=== PATIENT | female | born 1955 | race Caucasian/White ===

== ENCOUNTER 2020-08-05 13:24 | Inpatient (IN) | payer MEDICARE, OTHER, SELFPAY ==
[2020-08-05] VITALS (9 sets, daily range): BP systolic 107–140; BP diastolic 56–73; PULSE 104–120; RESP 16–18; TEMP 36.7–39; O2SAT 96–99; BMI 21.2
--- NOTE | 2020-08-05 13:58 | EKG12_ITS ---
Test Reason : Blood Pressure : / mmHG Vent. Rate : 112 BPM Atrial Rate : 112 BPM P-R Int : 134 ms QRS Dur : 064 ms QT Int : 288 ms P-R-T Axes : 044 004 063 degrees QTc Int : 393 ms Sinus tachycardia Otherwise normal ECG Confirmed by EVERTON GONZALES, PETAR ([id number]), magazine editor KELTON CUELLAR ([id number]) on 08/11/2020 8:48:05 A M Referred By: JAMILA Confirmed By:AMIE TOSCANO MD
--- NOTE | 2020-08-05 14:25 | RAD_ITS ---
STUDY: X-RAY CHEST REASON FOR EXAM: Female, 65 years old. NEUTROPENIC FEVER AND COUGH, BREAST CA W/METS TO LUNGS, BONE AND LYMPHATIC, HX HTN TECHNIQUE: PA and lateral views of the chest. COMPARISON: None. FINDINGS: A right-sided portacatheter is seen with the tip at the junction of the superior vena cava and right atrium. Elevation of the left hemidiaphragm. Blunting of the left costophrenic angle. Minimal increased markings at the lung bases suggestive of scarring. Normal size heart. Normal mediastinum and camilla. Normal visualized pulmonary arteries. There is atherosclerotic calcification of the aortic arch with tortuosity. There are degenerative changes and osteopenia of the visualized thoracic spine. Normal visualized ribs, clavicles, and shoulders. There is no demonstrated abnormality of the visualized soft tissue structures of the upper abdomen. RAD/Chest PA and Lateral IMPRESSION: Elevation of the left hemidiaphragm. Mild increased markings at the lung bases suggestive of a mild scarring. Electronically Signed: Uche Villasenor, at 14:51 EDT , Service support ,
--- NOTE | 2020-08-05 14:48 | ED.DCSUM_ITS ---
History of Present Illness Chief Complaint: Fever Informant: Patient, Family Onset: Days Context: Sudden Onset Timing: Continuous Quality: Malaise, elevated temperature starting Tuesday Location: Generalized Current Severity: Mild Maximum Severity: Moderate Worsened by: Received chemotherapy on July 31 Relieved by: Nothing Associated Symptoms: Chronic cough for several months, sores in mouth Narrative: Patient is 65-year-old woman with metastatic breast cancer. Metastasis to lung, bone and lymphatics. She has triple positive receptors. She received her first chemotherapy on July 31. She states her temperature on Tuesday vary between 100.1 and 100.3. Prior to arrival she had a document temperature of 101.7. She contacted her oncologist Dr. Germán Mary who recommended she come to the emergency department. She does complain of mild frontal head discomfort. She denies photophobia, neck pain or neck stiffness. She denies ringing or ears, decreased hearing or drainage from her ears. She denies congestion or sore throat. She does report discomfort with swallowing that started a couple days ago and sores near her gums. She has no history of herpes simplex virus infection. She states the cough is unchanged and nonproductive. She denies chest discomfort. She denies nausea, vomiting or diarrhea. She denies dysuria, frequency, urgency or hematuria. She has not noted a rash. She complains of weakness and not feeling well. Patient states her port was placed July [address] Beryl Bravo. She was diagnosed with breast cancer on 21 July. Prior similar symptoms: No Recent Illness/Hospitalization: Yes - Past Medical History (1) Metastatic breast cancer Status: Acute Past Medical History - Allergies and Home Meds Allergies/Adverse Reactions: Allergies No Known Allergies Allergy (Verified 08/05/20 13:26) Primary Care Physician: Nasreen Sierra,Out of [NON-STAFF] - Prior records reviewed: No Surgical History: - - Med port right subclavian Lives: With Family Smoking Status: Never smoker Alcohol: None Drugs: None Review of Systems General: Reports: Fever, Malaise, Weight loss. Denies: Chills, Subjective, Sweats Eyes: Denies: Visual changes - bilaterally, Blurred Vision - bilaterally ENT: Reports: Sore throat. Denies: Bilateral ear pain, Rhinorrhea Cardiovascular: Denies: Chest pain, Palpitations Respiratory: Reports: Dyspnea, Cough. Denies: Sputum, Dyspnea on exertion, Orthopnea, Paroxysmal nocturnal dyspnea Gastrointestinal: Denies: Abdominal pain, Nausea, Vomiting, Diarrhea Genitourinary: Denies: Dysuria, Hematuria, Frequency Musculoskeletal: Denies: Myalgias, Arthralgias, Neck pain, Back pain, Swelling, Extremity Pain Skin: Reports: Wounds - Oral lesions. Denies: Rash Neurological: Reports: Headache, Weakness. Denies: Parasthesia, Numbness Endocrine: Denies: Polyuria, Polydipsia Hematologic: Denies: Easy bruising Physical Exam Vital Signs/Narrative: Vital Signs Temp Pulse Resp BP Pulse Ox 08/05/20 13:24 100.1 F H 120 H 16 140/70 H 99 Inital Vital Signs reviewed: Yes General: Well nourished, Well developed, No Acute Distress Head: Normocephalic, Atraumatic Eyes: Perrl, EOMI, Pale conjunctiva. Negative for: Scleral icterus ENT: No rhinorrhea, TM's clear, Dry mucous membranes, - - Patient has ulcerative lesions roof of the mouth and buccal surface of her cheeks. Probably Neck: Supple, Nontender, No lymphadenopathy, No JVD Cardiovascular: Regular rhythm, No murmurs, Normal S1, Normal S2, Tachycardia Respiratory: No distress, CTA bilaterally, Chest nontender Abdomen: Soft, Nontender, Nondistended, Normal bowel sounds Rectal: Deferred Back: Nontender, Normal Inspection Extremities: Nontender, No edema Skin: Normal color, No rash, No Trauma. Negative for: Cyanosis, Diaphoresis, Jaundice Neurological: Alert, Oriented x3, Cranial nerves II-XII grossly intact, Normal Strength, Normal Sensation Psychological: Normal affect Diagnostic/Tx/Re-eval Chest X-Ray - ED: 2 View, Read by ED Physician, Normal, Heart, Chronic Changes, - - Is elevation left hemidiaphragm. Port noted on the right side. There is hilar fullness. We will need to review prior x-rays. 08/05/20 14:25 Chest PA and Lateral [RAD] Stat Impressions Chest X-Ray 08/05/20 14:25 IMPRESSION: Elevation of the left hemidiaphragm. Mild increased markings at the lung bases suggestive of a mild scarring. Electronically Signed: Uche Villasenor, at 14:51 EDT , Service support , 08/05/20 14:25 Chest PA and Lateral [RAD] Stat Laboratory Results 08/05/20 08/05/20 08/05/20 14:50 14:50 14:50 WBC 0.4 L* RBC 5.05 Hgb 13.6 Hct 42.2 MCV 83.6 MCH 26.9 L MCHC 32.2 RDW Std Deviation 42.5 RDW Coeff of Jose 14.0 Plt Count 129 L MPV 9.7 Immature Gran % (Auto) 2.900 H Neut % (Auto) 25.6 L Lymph % (Auto) 48.6 H [place] % (Auto) 20.0 H Eos % (Auto) 2.9 Baso % (Auto) 0.0 Absolute Neuts (auto) 0.1 L Absolute Lymphs (auto) 0.17 L Nucleated RBC % 0 Differential Comment SEE COMMENTS Diff Path Review May foll Platelet Estimate SLT DEC RBC Morphology N CHROM Anisocytosis RARE PT 12.6 INR 1.0 APTT 27.4 Sodium 134 L Potassium 4.0 Chloride 102 Carbon Dioxide 28.0 Anion Gap 4 L BUN 13 Creatinine 0.86 Estim Creat Clear Calc 63.53 Est GFR (MDRD) Af Amer 85 Est GFR (MDRD) Non-Af 70 BUN/Creatinine Ratio 15.1 Glucose 125 H Lactic Acid Calcium 8.9 Total Bilirubin 0.60 AST 23 ALT 42 Alkaline Phosphatase 114 Total Protein 6.3 L Albumin 2.7 L Globulin 3.6 Albumin/Globulin Ratio 0.8 L 08/05/20 14:50 WBC RBC Hgb Hct MCV MCH MCHC RDW Std Deviation RDW Coeff of Jose Plt Count MPV Immature Gran % (Auto) Neut % (Auto) Lymph % (Auto) [place] % (Auto) Eos % (Auto) Baso % (Auto) Absolute Neuts (auto) Absolute Lymphs (auto) Nucleated RBC % Differential Comment Diff Path Review Platelet Estimate RBC Morphology Anisocytosis PT INR APTT Sodium Potassium Chloride Carbon Dioxide Anion Gap BUN Creatinine Estim Creat Clear Calc Est GFR (MDRD) Af Amer Est GFR (MDRD) Non-Af BUN/Creatinine Ratio Glucose Lactic Acid 1.1 Calcium Total Bilirubin AST ALT Alkaline Phosphatase Total Protein Albumin Globulin Albumin/Globulin Ratio Case was discussed with Dr. Germán Mary. He requested admission. He was informed of treatment. He would like the hospitalist to give her Granix 480 mcg subcu daily. - EKG Initial EKG Interpretation: Sinus Rhythm - Sinus tachycardia with a ventricular rate of 112. VT interval 134 ms. QRS duration 64 ms. QT duration 288 ms. [place] is normal. Other than the tachycardia the EKG is normal. - Medical Decision Making Concern for neutropenic febrile patient. Neutropenic order set was initiated. After physical exam was performed since patient had orders placed and she was waiting in the waiting room HSV viral specimen was obtained. She will receive 10 mg/kg acyclovir as well as prophylactic antibiotics. After test results have returned we will discuss case with her oncologist Dr. Germán Mary. ED Disposition - Plan for ED Patient: Disposition: Home or Assisted Living Diagnosis: Neutropenia with fever Referrals: [facility] Doctor,Out of [NON-STAFF] -
[2020-08-05 15:19] LABS: Absolute Lymphocyte Count 0.17 X10^3/uL (0.83-4.51); Absolute Neutrophil Count 0.1 X10^3/uL (2.0-7.7); Eosinophil# 0.01 X10^3/uL; Eosinophils% 2.9 % (0-5); Hematocrit 42.2 % (37-47); Hemoglobin 13.6 g/dL (12.0-15.0); Lymphocyte # 0.17 X10^3/ul (4.0); Lymphocyte % 48.6 % (19-41); Mean Corp Hgb Conc 32.2 g/dL (32-36); Mean Corpuscular Hgb 26.9 pg (27.0-32.0); Mean Corpuscular Volume 83.6 fL (81-99); Mean Platelet Vol. 9.7 fl (6.2-12.0); Monocyte# 0.07 X10^3/uL; NRBC Flagged by Analyzer 0 % (0-5); Neutrophil # 0.09 X10^3/uL (2.7-7.7); Neutrophil % 25.6 % (47-70); POSITIVE COUNT YES; POSITIVE DIFFERENTIAL YES; Platelet Count 129 K/mm3 (150-450); RBC Distribution Width SD 42.5 fl (35.1-43.9); Red Blood Count 5.05 M/mm3 (4.2-5.4)
[2020-08-05] MEDS: 0.9% Normal Saline 1,000 ML 250 ML IV (15:22)
[2020-08-05] MEDS: 0.9 % NaCl (Sterile) Posiflush 10 mL IV (15:23)
[2020-08-05] MEDS: Acetaminophen 325 MG Tablet 650 MG PO (15:24)
[2020-08-05 15:32] LABS: ALB/GLOB Ratio 0.8 RATIO (0.9-2.4); AST(SGOT) 23 U/L (15-37); Alanine Aminotransfer ALT/SGPT 42 U/L (13-56); Albumin, Serum 2.7 g/dL (3.2-5.0); Alkaline Phosphatase 114 U/L (45-117); Anion Gap 4 (5-15); BUN 13 mg/dL (7-18); BUN/Creat Ratio 15.1 RATIO (10-20); Calcium,Total 8.9 mg/dL (8.5-10.1); Chloride 102 mmol/L (98-107); Creatinine, Serum 0.86 mg/dL (0.55-1.02); EST Glomerular Filtration Rate 70 mL/min (>60); Est Glom Filt Rate - Afr Amer 85 mL/min (>60); Estimated Creatinine Clearance 63.53 ml/min; Globulin 3.6 g/dL (2.2-4.2); Glucose 125 mg/dL (74-106); Protein, Total 6.3 g/dL (6.4-8.2); Sodium Level 134 mmol/L (136-145)
[2020-08-05 15:37] LABS: Prothrombin Time (Protime)PT. 12.6 SECONDS (11.7-14.9)
[2020-08-05 15:38] LABS: Partial Thromboplast Time 27.4 Seconds (24.1-36.2)
[2020-08-05 15:42] LABS: Lactic Acid 1.1 mmol/L (0.4-1.9)
[2020-08-05 16:08] LABS: Differential Indicated SCAN CRITERIA MET; White Blood Count 0.4 K/mm3 (4.4-11.0)
[2020-08-05 16:12] LABS: Anisocytosis RARE; Differential Comment SEE COMMENTS; Platelet Estimate SLT DEC (ADEQ); Red Cell Morphology N CHROM NORMAL (NORM C&C)
--- NOTE | 2020-08-05 16:13 | NURSING ---
DR LEIGH PAGED
[2020-08-05] MEDS: Acyclovir 640 MG in Dextrose 5% 250 ML 262.8 MG IV (16:32)
[2020-08-05 16:55] LABS: Mucous, Urine 0 SEEN /hpf (<or=2+); Red Blood Cells-Urine 0 SEEN /hpf (0-5)
--- NOTE | 2020-08-05 16:59 | NURSING ---
MED SURG HARVEY NEUTROPENIC FEVER, METASTATIC BREAST CA
--- NOTE | 2020-08-05 17:05 | PCM.HP.STD ---
<Celine Joe PROCESSES CHEMICAL DESIGN ENGINEER - Last Filed: 08/05/20 17:19> Problem List (1) Metastatic breast cancer Status: Chronic (2) Neutropenia with fever Status: Acute (3) Hypertension Status: Chronic History of Present Illness Date of Admission: 08/05/20 Chief Complaint: Fever. The patient is a 65 year old F who presents to the emergency room due to fever. Patient was recently diagnosed with breast cancer July 21. She underwent her first chemotherapy treatment July 31. Patient states she has tolerated treatment fairly well. However yesterday began to have low-grade fever which worsened throughout today. She reports she has had ongoing intermittent mild cough since her diagnosis. Denies productive cough. Denies shortness of breath. Denies urinary symptoms. Denies nausea, vomiting, diarrhea, abdominal pain. She does report mouth sores and throat irritation. Her other past medical history includes hypertension. Past Medical History Past Medical History (Chronic Problems): Chronic Problems Hypertension (Chronic) Metastatic breast cancer (Chronic) Allergies No Known Allergies Allergy (Verified 08/05/20 13:26) Home Medications: Ambulatory Orders Medication Instructions Recorded Amlodipine [Norvasc] 10 mg PO DAILY 08/05/20 Ergocalciferol (Vitamin D2) 50,000 unit PO TUFR 08/05/20 [Vitamin D2] Surgical History: - - Med port right subclavian Psychiatric History: No pertinent psych hx THREAD CLIPPER History: No pertinent THREAD CLIPPER history Lives: With Family - With sister Smoking Status: Never smoker Alcohol: None Drugs: None - *Family History Maternal History Items: Dementia, Stroke Paternal History Items: Heart Disease Review of Systems Constitutional: Reports: Chills, Fever, Malaise HEENT: Reports: Sore Throat. Denies: Head Aches, Sinus Congestion, Sinus Drainage Cardiovascular: Denies: Chest Pain, Palpitations Respiratory: Reports: Cough - Chronic. Denies: Shortness of breath at rest, Sputum production Gastrointestinal: Denies: Abdominal Pain, Nausea, Vomiting Genitourinary: Denies: Dysuria Musculoskeletal: Denies: Joint Pain, Joint Tenderness Skin: Denies: Rash, Wounds Neurological: Denies: Numbness, Tingling, Focal weakness Psychiatric: Denies: Anxiety, Depression, Homicidal Ideations, Suicidal Ideations Hematologic/ Lymphatic: Denies: Easy Bruising, Easy Bleeding VTE Information - Inpt Only VTE Present on Admission: No VTE Mechan Device Prophylaxis: None VTE Pharm Prophylaxis ordered?: Yes Patient Problems: Active and Suspected Problems Neutropenia with fever (Acute) - Physical Exam Vitals/I&O's: Vital Signs Temp Pulse Resp BP Pulse Ox 98.1 F 108 H 18 121/73 H 99 08/05/20 16:51 08/05/20 16:51 08/05/20 16:51 08/05/20 16:51 08/05/20 16:51 Oxygen Delivery Method Room Air Weight: 139 lb 12.369 oz Body Mass Index (BMI) 21.2 Intake and Output for Last 24 Hours 08/03/20 08/04/20 08/05/20 23:59 23:59 23:59 Intake Total 50 / 50 Balance 50 / 50 General: Alert, Oriented x3, Cooperative HEENT: Atraumatic, PERRLA, EOMI, Normocephalic Oral: - - Mild thrush present, ulcerative lesions Neck: Supple, No JVD, Negative Carotid Bruits Lungs: Clear to auscultation, Normal air movement Cardiovascular: Regular Rhythm, No murmurs, Tachycardic Abdomen: Bowel Sounds Present, Soft, Non Tender, Non-Distended Extremities: No clubbing, No cyanosis, No edema, Capillary Refill Less than 3 Seconds Skin: No rashes, No breakdown Musculoskeletal: No Tenderness to Palpation of Joints or Extremities Neurological: Cranial nerves II-XII grossly intact, Neuro grossly intact Psych/Mental Status: Normal Affect, Appropriate Laboratory Results 08/05/20 14:30: HSV I DNA PCR Pending, HSV II DNA PCR Pending 08/05/20 14:50: WBC 0.4 L*, RBC 5.05, Hgb 13.6, Hct 42.2, MCV 83.6, MCH 26.9 L, MCHC 32.2, RDW Std Deviation 42.5, RDW Coeff of Jose 14.0, Plt Count 129 L, MPV 9.7, Immature Gran % (Auto) 2.900 H, Neut % (Auto) 25.6 L, Lymph % (Auto) 48.6 H, [place] % (Auto) 20.0 H, Eos % (Auto) 2.9, Baso % (Auto) 0.0, Absolute Neuts (auto) 0.1 L, Absolute Lymphs (auto) 0.17 L, Nucleated RBC % 0, Differential Comment SEE COMMENTS, Diff Path Review May foll, Platelet Estimate SLT DEC, RBC Morphology N CHROM, Anisocytosis RARE 08/05/20 14:50: PT 12.6, INR 1.0, APTT 27.4 08/05/20 14:50: Sodium 134 L, Potassium 4.0, Chloride 102, Carbon Dioxide 28.0, Anion Gap 4 L, BUN 13, Creatinine 0.86, Estim Creat Clear Calc 63.53, Est GFR (MDRD) Af Amer 85, Est GFR (MDRD) Non-Af 70, BUN/Creatinine Ratio 15.1, Glucose 125 H, Calcium 8.9, Total Bilirubin 0.60, AST 23, ALT 42, Alkaline Phosphatase 114, Total Protein 6.3 L, Albumin 2.7 L, Globulin 3.6, Albumin/Globulin Ratio 0.8 L 08/05/20 14:50: Lactic Acid 1.1 08/05/20 16:45: Urine Color Pending, Urine Clarity Pending, Urine pH Pending, Ur Specific [place] Pending, Urine Protein Pending, Urine Glucose (UA) Pending, Urine Ketones Pending, Urine Occult Blood Pending, Urine Nitrite Pending, Urine Bilirubin Pending, Urine Urobilinogen Pending, Ur Leukocyte Esterase Pending, Urine RBC Pending, Urine WBC Pending, Ur Squamous Epith Cells Pending, Urine Bacteria Pending, Urine Mucus Pending Current Medications Heparin Sodium (Beef Lung) (Heparin Pf Lock 10 Units/Ml 50 Units/5 Ml Syringe) 50 units IV UD PRN PRN Reason: Port-a-Cath (VAD)Heparin Flush Sodium Chloride () 1,000 mls @ 250 mls/hr IV .Q4H NATASHA Last Admin: 08/05/20 15:22 Dose: 250 mls/hr Documented by: Vancomycin HCl (Vancomycin) 1,000 mg in 200 mls @ 200 mls/hr IV X1 ONE Stop: 08/05/20 17:59 Sodium Chloride (0.9% Saline Lock 10 Ml Syringe) 10 - 40 ml IV UD PRN PRN Reason: Port-a-Cath (VAD) Flush Sodium Chloride (0.9 % Nacl (Sterile) Posiflush 10 Ml) 10 - 40 ml IV UD PRN PRN Reason: Port access or dressing change Last Admin: 08/05/20 15:23 Dose: 10 ml Documented by: Assessment/Plan All Active Problems Neutropenia with fever (Acute) 1. Sepsis with neutropenic fever-IV fluids. IV meropenem. Granix 300 mcg daily. As needed Tylenol. Urinalysis and urine culture pending. Blood culture pending. Chest x-ray unremarkable. 2. Oral thrush-nystatin swish and swallow. 3. Metastatic breast cancer-first chemo treatment 07/31/2020. Following with Dr. Mary. 4. Hypertension-stable, continue amlodipine. DVT prophylaxis-Lovenox subcu This patient was seen by JOSE Mays under the supervision of Dr. Beverly. <Howard Beverly E - Last Filed: 08/05/20 17:31> History of Present Illness The patient is a 65 year old F [] Past Medical History Allergies No Known Allergies Allergy (Verified 08/05/20 13:26) - Physical Exam Vitals/I&O's: Vital Signs Temp Pulse Resp BP Pulse Ox 98.1 F 108 H 18 121/73 H 99 08/05/20 16:51 08/05/20 16:51 08/05/20 16:51 08/05/20 16:51 08/05/20 16:51 Oxygen Delivery Method Room Air Weight: 139 lb 12.369 oz Body Mass Index (BMI) 21.2 Intake and Output for Last 24 Hours 08/03/20 08/04/20 08/05/20 23:59 23:59 23:59 Intake Total 50 / 50 Balance 50 / 50 Laboratory Results 08/05/20 14:30: HSV I DNA PCR Pending, HSV II DNA PCR Pending 08/05/20 14:50: WBC 0.4 L*, RBC 5.05, Hgb 13.6, Hct 42.2, MCV 83.6, MCH 26.9 L, MCHC 32.2, RDW Std Deviation 42.5, RDW Coeff of Jose 14.0, Plt Count 129 L, MPV 9.7, Immature Gran % (Auto) 2.900 H, Neut % (Auto) 25.6 L, Lymph % (Auto) 48.6 H, [place] % (Auto) 20.0 H, Eos % (Auto) 2.9, Baso % (Auto) 0.0, Absolute Neuts (auto) 0.1 L, Absolute Lymphs (auto) 0.17 L, Nucleated RBC % 0, Differential Comment SEE COMMENTS, Diff Path Review May foll, Platelet Estimate SLT DEC, RBC Morphology N CHROM, Anisocytosis RARE 08/05/20 14:50: PT 12.6, INR 1.0, APTT 27.4 08/05/20 14:50: Sodium 134 L, Potassium 4.0, Chloride 102, Carbon Dioxide 28.0, Anion Gap 4 L, BUN 13, Creatinine 0.86, Estim Creat Clear Calc 63.53, Est GFR (MDRD) Af Amer 85, Est GFR (MDRD) Non-Af 70, BUN/Creatinine Ratio 15.1, Glucose 125 H, Calcium 8.9, Total Bilirubin 0.60, AST 23, ALT 42, Alkaline Phosphatase 114, Total Protein 6.3 L, Albumin 2.7 L, Globulin 3.6, Albumin/Globulin Ratio 0.8 L 08/05/20 14:50: Lactic Acid 1.1 08/05/20 16:45: Urine Color Pending, Urine Clarity Pending, Urine pH Pending, Ur Specific [place] Pending, Urine Protein Pending, Urine Glucose (UA) Pending, Urine Ketones Pending, Urine Occult Blood Pending, Urine Nitrite Pending, Urine Bilirubin Pending, Urine Urobilinogen Pending, Ur Leukocyte Esterase Pending, Urine RBC Pending, Urine WBC Pending, Ur Squamous Epith Cells Pending, Urine Bacteria Pending, Urine Mucus Pending Current Medications Heparin Sodium (Beef Lung) (Heparin Pf Lock 10 Units/Ml 50 Units/5 Ml Syringe) 50 units IV UD PRN PRN Reason: Port-a-Cath (VAD)Heparin Flush Sodium Chloride () 1,000 mls @ 250 mls/hr IV .Q4H NATASHA Last Admin: 08/05/20 15:22 Dose: 250 mls/hr Documented by: Vancomycin HCl (Vancomycin) 1,000 mg in 200 mls @ 200 mls/hr IV X1 ONE Stop: 08/05/20 17:59 Sodium Chloride (0.9% Saline Lock 10 Ml Syringe) 10 - 40 ml IV UD PRN PRN Reason: Port-a-Cath (VAD) Flush Sodium Chloride (0.9 % Nacl (Sterile) Posiflush 10 Ml) 10 - 40 ml IV UD PRN PRN Reason: Port access or dressing change Last Admin: 08/05/20 15:23 Dose: 10 ml Documented by: Assessment/Plan Hospitalist note: I am seeing this patient in conjunction with Celine Joe. I independently seen and examined the patient. History and physical, laboratory data and imaging studies reviewed and I concur with above admission and treatment plan and additions as below. Patient presented to the emergency room because of fever which started yesterday, initially was low-grade fever and then went up to 101.7 Fahrenheit today, associated with not feeling well and mild weakness and without aggravating or relieving factors. Chief complaint of mouth sores and sore throat that started after chemotherapy. She received her first chemotherapy on July 31, 2012 24 metastatic breast cancer. She reported chronic dry cough which is usual for her. She denied productive cough, shortness of breath. She denied abdominal pain, nausea or vomiting. She denied urinary symptoms. She denied sick contacts or recent travel. She was diagnosed with metastatic breast cancer on July 21, 2020 and she received her first session of chemotherapy on July 31, 2020. She had history of hypertension which has been under control with Norvasc. In the emergency department, patient was febrile, tachycardic, blood pressure was stable, pulse ox was normal on room air. Routine blood work revealed leukopenia, thrombocytopenia and absolute neutrophil count of 100. BMP was unremarkable. Lactic acid was normal. Urinalysis showed no evidence of acute cystitis. She is being admitted for febrile neutropenia without clear source of infection as well as oral thrush. - Physical Exam General: Alert, Oriented x3, Cooperative, No apparent distress. HEENT: Atraumatic, PERRLA, EOMI. oral: Mild oral thrush. Neck: Supple, No JVD, Negative Carotid Bruits, Trachea Midline, Thyroid Normal. Lungs: Clear to auscultation, Normal air movement, No rhonchi, No wheeze, No rales. Cardiovascular: Regular rate, Regular Rhythm, Normal S1, Normal S2, PMI Normal, tachycardia. Abdomen: Bowel Sounds Present, Soft, Non Tender, Non-Distended, No Hepato-splenomegaly. Extremities: No clubbing, No cyanosis, No edema Skin: No rashes, No breakdown Neurological: Cranial nerves are intact, neuro grossly intact Assessment and plan: #1 febrile neutropenia/SIRS: Patient is febrile, tachycardic, no tachypnea, she is leukopenic and neutropenic, no obvious source of infection. She meets criteria for SIRS. Absolute neutrophil count is 100. It is secondary to chemotherapy. Chest x-ray showed no acute infiltrate or consolidation. Urinalysis was negative for UTI. [facility] gentle IV fluids for hydration, blood culture, urine culture, neutropenic precautions, start IV meropenem empirically, Granix subcu daily, repeat CBC and CMP tomorrow morning. No symptoms suggestive of COVID-19 and patient denied recent travel or sick contacts. #2 oral thrush: Secondary to chemotherapy, stopped nystatin oral swish and swallow 4 times a day. #3 other chronic medical problems: Stable, continue current medications as above. This note was generated with [facility] dictation software. It may contain incorrect words, spelling, and punctuation that were not noted in checking the note before signing. Inpatient E&M: 17149 Init Hosp L3
[2020-08-05] MEDS: Vancomycin IV 1,000 MG/200 ML BAG 200 MG IV (17:21)
[2020-08-05 17:22] LABS: Color, Urine Yellow (Yellow); Glucose, Dipstick Normal (Normal); Ketone-Dipstick Negative (Negative); Leukocyte Esterase-Dipstick 500 /ul (Negative); Nitrite-Dipstick Negative (Negative); Occult Blood-Urine Negative /ul (Negative); Protein-Dipstick Negative (Negative); Specific Gravity, Urine 1.015 (1.002-1.030); Urine Bilirubin Dipstick Negative (Negative); Urine Clarity Cloudy (Clear); Urine Urobilinogen Normal (Normal)
[2020-08-05] MEDS: TBO-FILGRASTIM 480 MCG/0.8 ML ML SC (17:22)
[2020-08-05 18:44] LABS: Squamous Epithelial Cells - UA 0-5 SEEN /hpf (5-10)
[2020-08-05 18:45] LABS: Transitional Epithelial - Ur 0-5 SEEN /hpf (0-5); White Blood Cells 0-5 SEEN /hpf (0-5)
[2020-08-05 18:46] LABS: Amorphous Sediment 1+
[2020-08-05 18:48] LABS: Bacteria RARE /hpf (None Seen)
[2020-08-05] MEDS: 0.9% Normal Saline 1,000 ML 75 ML IV (18:49)
[2020-08-05] MEDS: Pantoprazole Sodium 40 MG Tablet PO (18:49)
[2020-08-05] MEDS: NYSTATIN 500,000 UNIT/5 ML UDC 500000 UNIT PO ×2 (20:38→22:17)
[2020-08-06] VITALS (11 sets, daily range): BP systolic 110–122; BP diastolic 58–84; PULSE 102–112; RESP 16–18; TEMP 36.2–37.2; O2SAT 94–97
[2020-08-06 06:08] LABS: Absolute Lymphocyte Count 0.22 X10^3/uL (0.83-4.51); Basophil# 0.01 X10^3/uL; Basophil% 2.4 % (0-1); Eosinophil# 0.02 X10^3/uL; Eosinophils% 4.9 % (0-5); Hematocrit 36.9 % (37-47); Hemoglobin 11.7 g/dL (12.0-15.0); Lymphocyte # 0.22 X10^3/ul (4.0); Lymphocyte % 53.7 % (19-41); Mean Corp Hgb Conc 31.7 g/dL (32-36); Mean Corpuscular Hgb 26.6 pg (27.0-32.0); Mean Corpuscular Volume 83.9 fL (81-99); Mean Platelet Vol. 9.5 fl (6.2-12.0); Monocyte# 0.11 X10^3/uL; Monocyte% 26.8 % (0-10); NRBC Flagged by Analyzer 0 % (0-5); Neutrophil # 0.03 X10^3/uL (2.7-7.7); Neutrophil % 7.3 % (47-70); POSITIVE COUNT YES; POSITIVE DIFFERENTIAL YES; POSITIVE MORPHOLOGY YES; Platelet Count 111 K/mm3 (150-450); RBC Distribution Width SD 43.2 fl (35.1-43.9)
[2020-08-06 06:18] LABS: Differential Indicated SCAN CRITERIA MET
[2020-08-06 06:20] LABS: White Blood Count 0.4 K/mm3 (4.4-11.0)
[2020-08-06 06:27] LABS: Anion Gap 5 (5-15); BUN 13 mg/dL (7-18); BUN/Creat Ratio 16.7 RATIO (10-20); Chloride 105 mmol/L (98-107); Creatinine, Serum 0.78 mg/dL (0.55-1.02); EST Glomerular Filtration Rate 79 mL/min (>60); Est Glom Filt Rate - Afr Amer 95 mL/min (>60); Estimated Creatinine Clearance 54.57 ml/min; Glucose 94 mg/dL (74-106); Potassium 3.7 mmol/L (3.5-5.1); Sodium Level 136 mmol/L (136-145)
[2020-08-06 06:46] LABS: Differential Comment SCANNED
[2020-08-06 06:47] LABS: Platelet Estimate SLT DEC (ADEQ)
[2020-08-06] MEDS: TBO-FILGRASTIM 300 MCG/0.5 ML ML SC (10:17)
[2020-08-06] MEDS: NYSTATIN 500,000 UNIT/5 ML UDC 500000 UNIT PO ×4 (10:19→21:07)
[2020-08-06] MEDS: amLODIPine 10 MG Tablet PO (10:19)
[2020-08-06] MEDS: Enoxaparin 30 MG/0.3 ML Syringe SC (10:19)
[2020-08-06] MEDS: Pantoprazole Sodium 40 MG Tablet PO (10:21)
[2020-08-06] MEDS: 0.9% Normal Saline 1,000 ML 75 ML IV (10:37)
--- NOTE | 2020-08-06 10:44 | PN_ITS ---
<Celine Joe TEMPORARY HELP AGENCY REFERRAL CLERK - Last Filed: 08/06/20 10:56> Patient Problems: Active and Suspected Problems Neutropenia with fever (Acute) Subjective: Patient seen and examined. No further fever overnight or this morning. Patient reports itching and rash around her neck and chest. Reports continued mouth sores and sore throat. Denies nausea, vomiting. Denies cough, shortness of breath. Denies urinary symptoms. - Physical Exam Vitals/I&O's: Vital Signs Temp Pulse Resp BP Pulse Ox 98.3 F 102 H 18 119/58 L 96 08/06/20 10:13 08/06/20 10:13 08/06/20 10:13 08/06/20 10:13 08/06/20 10:13 Oxygen Delivery Method Room Air Weight: 139 lb 9.6 oz Body Mass Index (BMI) 21.2 Intake and Output for Last 24 Hours 08/04/20 08/05/20 08/06/20 23:59 23:59 23:59 Intake Total 1046.13 / 1046.13 880 / 880 Balance 1046.13 / 1046.13 880 / 880 General: Alert, Oriented x3, Cooperative HEENT: Atraumatic, PERRLA, EOMI, Normocephalic Oral: - - Oral thrush, ulcerative lesions Neck: Supple, No JVD, Negative Carotid Bruits Lungs: Clear to auscultation, Normal air movement Cardiovascular: Regular rate, No murmurs Abdomen: Bowel Sounds Present, Soft, Non Tender, Non-Distended Extremities: No clubbing, No cyanosis, No edema, Capillary Refill Less than 3 Seconds Skin: No rashes, No breakdown Musculoskeletal: No Tenderness to Palpation of Joints or Extremities Neurological: Cranial nerves II-XII grossly intact, Neuro grossly intact Psych/Mental Status: Normal Affect, Appropriate Laboratory Results 08/05/20 14:30: HSV I DNA PCR Pending, HSV II DNA PCR Pending 08/05/20 14:50: WBC 0.4 L*, RBC 5.05, Hgb 13.6, Hct 42.2, MCV 83.6, MCH 26.9 L, MCHC 32.2, RDW Std Deviation 42.5, RDW Coeff of Jose 14.0, Plt Count 129 L, MPV 9.7, Immature Gran % (Auto) 2.900 H, Neut % (Auto) 25.6 L, Lymph % (Auto) 48.6 H , Barron % (Auto) 20.0 H, Eos % (Auto) 2.9, Baso % (Auto) 0.0, Absolute Neuts (auto) 0.1 L, Absolute Lymphs (auto) 0.17 L, Nucleated RBC % 0, Differential Comment SEE COMMENTS, Diff Path Review May foll, Platelet Estimate SLT DEC, RBC Morphology N CHROM, Anisocytosis RARE 08/05/20 14:50: PT 12.6, INR 1.0, APTT 27.4 08/05/20 14:50: Sodium 134 L, Potassium 4.0, Chloride 102, Carbon Dioxide 28.0, Anion Gap 4 L, BUN 13, Creatinine 0.86, Estim Creat Clear Calc 63.53, Est GFR (MDRD) Af Amer 85, Est GFR (MDRD) Non-Af 70, BUN/Creatinine Ratio 15.1, Glucose 125 H, Calcium 8.9, Total Bilirubin 0.60, AST 23, ALT 42, Alkaline Phosphatase 114, Total Protein 6.3 L, Albumin 2.7 L, Globulin 3.6, Albumin/Globulin Ratio 0.8 L 08/05/20 14:50: Lactic Acid 1.1 08/05/20 16:45: Urine Color Yellow, Urine Clarity Cloudy, Urine pH 8.0, Ur Specific [place] 1.015, Urine Protein Negative, Urine Glucose (UA) Normal, Urine Ketones Negative, Urine Occult Blood Negative, Urine Nitrite Negative, Urine Bilirubin Negative, Urine Urobilinogen Normal, Ur Leukocyte Esterase 500 H, Urine RBC 0 SEEN, Urine WBC 0-5 SEEN, Ur Squamous Epith Cells 0-5 SEEN, Ur Transition Epith Cell 0-5 SEEN, Amorphous Sediment 1+, Urine Bacteria RARE, Urine Mucus 0 SEEN 08/06/20 05:53: WBC 0.4 L*, RBC 4.40, Hgb 11.7 L, Hct 36.9 L, MCV 83.9, MCH 26.6 L, MCHC 31.7 L, RDW Std Deviation 43.2, RDW Coeff of Jose 14.0, Plt Count 111 L, MPV 9.5, Immature Gran % (Auto) 4.900 H, Neut % (Auto) 7.3 L, Lymph % (Auto) 53.7 H, Barron % (Auto) 26.8 H, Eos % (Auto) 4.9, Baso % (Auto) 2.4 H, Absolute Neuts (auto) 0.0 L, Absolute Lymphs (auto) 0.22 L, Nucleated RBC % 0, Differential Comment SCANNED, Diff Path Review May foll, Platelet Estimate SLT 08/06/20 05:53: Sodium 136, Potassium 3.7, Chloride 105, Carbon Dioxide 26.0, Anion Gap 5, BUN 13, Creatinine 0.78, Estim Creat Clear Calc 54.57, Est GFR (MDRD) Af Amer 95, Est GFR (MDRD) Non-Af 79, BUN/Creatinine Ratio 16.7, Glucose 94, Calcium 8.0 L Current Medications Acetaminophen (Acetaminophen 325 Mg Tablet) 650 mg PO Q6H PRN PRN PRN Reason: Pain Score 1-10/Temp > 100.7 F Al Hydroxide/Mg Hydroxide (Mag Hydrox/Al Hydrox/Simeth 30 Ml Udc) 15 ml PO Q6H PRN PRN PRN Reason: Heartburn, indigestion Amlodipine Besylate (Amlodipine 10 Mg Tablet) 10 mg PO DAILY [facility] Last Admin: 08/06/20 10:19 Dose: 10 mg Documented by: Enoxaparin Sodium (Enoxaparin 30 Mg/0.3 Ml Syringe) 30 mg SC DAILY [facility] Last Admin: 08/06/20 10:19 Dose: 30 mg Documented by: Heparin Sodium (Beef Lung) (Heparin Pf Lock 10 Units/Ml 50 Units/5 Ml Syringe) 50 units IV UD PRN PRN Reason: Port-a-Cath (VAD)Heparin Flush Sodium Chloride () 1,000 mls @ 75 mls/hr IV .[id number] [facility] Last Admin: 08/06/20 10:37 Dose: 75 mls/hr Documented by: Meropenem 2 gm/ Sodium (Chloride) 140 mls @ 97 mls/hr IV Q8 [facility] Last Infusion: 08/06/20 07:30 Dose: Infused Documented by: Nystatin (Nystatin 500,000 Unit/5 Ml Udc) 500,000 unit PO 4X/DAY [facility] Last Admin: 08/06/20 10:19 Dose: 500,000 unit Documented by: Ondansetron HCl (Ondansetron 4 Mg/2 Ml Vial) 4 mg IV Q8H PRN PRN PRN Reason: NAUSEA/VOMITING Pantoprazole Sodium (Pantoprazole Sodium 40 Mg Tablet) 40 mg PO DAILY [facility] Last Admin: 08/06/20 10:21 Dose: 40 mg Documented by: Senna/Docusate Sodium (Senna/Docusate Sodium 1 Tablet) 2 tablet PO BID PRN PRN PRN Reason: Constipation Sodium Chloride (0.9% Saline Lock 10 Ml Syringe) 10 - 40 ml IV UD PRN PRN Reason: Port-a-Cath (VAD) Flush Sodium Chloride (0.9 % Nacl (Sterile) Posiflush 10 Ml) 10 - 40 ml IV UD PRN PRN Reason: Port access or dressing change Tbo-Filgrastim (Tbo-Filgrastim 300 Mcg/0.5 Ml Ml) 300 mcg SC DAILY [facility] Last Admin: 08/06/20 10:17 Dose: 300 mcg Documented by: Zolpidem Tartrate (Zolpidem Tartrate 5 Mg Tablet) 5 mg PO QHS PRN PRN PRN Reason: INSOMNIA Medical Necessity - Tobacco Use Smoking Status: Never smoker Tobacco Use: Non-smoker Assessment/Plan All Active Problems Neutropenia with fever (Acute) 1. SIRS with neutropenic fever-IV fluids. IV meropenem. Granix 300 mcg daily. As needed Tylenol. Chest x-ray unremarkable. Urine and blood cultures pending. UA unremarkable. 2. Oral thrush-nystatin swish and swallow. 3. Metastatic breast cancer-first chemo treatment 07/31/2020. Following with Dr. Mary. 4. Hypertension-stable, continue amlodipine. DVT prophylaxis-Lovenox subcu This patient was seen by JOSE Mays under the supervision of Dr. Parr. <Olga Lidia Parr - Last Filed: 08/06/20 15:47> Subjective: Pt states that she is feeling well. States that her rash has resolved and the itching is gone. Mouth is sore but taking in po well. No fevers since yesterday afternoon. - Physical Exam Vitals/I&O's: Vital Signs Temp Pulse Resp BP Pulse Ox 98.1 F 105 H 18 120/84 H 97 08/06/20 13:46 08/06/20 13:46 08/06/20 13:46 08/06/20 13:46 08/06/20 13:46 Oxygen Delivery Method Room Air Weight: 63.321 kg Body Mass Index (BMI) 21.2 Intake and Output for Last 24 Hours 08/04/20 08/05/20 08/06/20 23:59 23:59 23:59 Intake Total 1046.13 / 1046.13 1330 / 1330 Balance 1046.13 / 1046.13 1330 / 1330 General: Alert, Oriented x3, Cooperative, No apparent distress, Well developed, Well nourished, - - older WF sitting up in bed knitting, appears comfortable HEENT: Atraumatic, PERRLA, EOMI, Normocephalic, EAC Clear Oral: Moist Mucosa, - - Oral thrush, ulcerative lesions on soft and hard palate Neck: Supple Lungs: Clear to auscultation, Normal air movement, No rhonchi, No wheeze, No rales Cardiovascular: Regular Rhythm, Normal S1, Normal S2, No murmurs, No Ectopic Activity, No rub noted, No Gallop, Tachycardic - mild Abdomen: Bowel Sounds Present, Soft, Non Tender, Non-Distended Extremities: No clubbing, No cyanosis, No edema, Capillary Refill Less than 3 Seconds, Peripheral Pulses Normal Skin: No rashes, No breakdown, - - Med port accessed R chest-->newly placed Neurological: Cranial nerves II-XII grossly intact, Neuro grossly intact Psych/Mental Status: Normal Affect, Appropriate Laboratory Results 08/05/20 14:50: WBC 0.4 L*, RBC 5.05, Hgb 13.6, Hct 42.2, MCV 83.6, MCH 26.9 L, MCHC 32.2, RDW Std Deviation 42.5, RDW Coeff of Jose 14.0, Plt Count 129 L, MPV 9.7, Immature Gran % (Auto) 2.900 H, Neut % (Auto) 25.6 L, Lymph % (Auto) 48.6 H , Barron % (Auto) 20.0 H, Eos % (Auto) 2.9, Baso % (Auto) 0.0, Absolute Neuts (auto) 0.1 L, Absolute Lymphs (auto) 0.17 L, Nucleated RBC % 0, Differential Comment SEE COMMENTS, Diff Path Review Reviewed, Platelet Estimate SLT DEC, RBC Morphology N CHROM, Anisocytosis RARE 08/05/20 14:50: PT 12.6, INR 1.0, APTT 27.4 08/05/20 14:50: Sodium 134 L, Potassium 4.0, Chloride 102, Carbon Dioxide 28.0, Anion Gap 4 L, BUN 13, Creatinine 0.86, Estim Creat Clear Calc 63.53, Est GFR (MDRD) Af Amer 85, Est GFR (MDRD) Non-Af 70, BUN/Creatinine Ratio 15.1, Glucose 125 H, Calcium 8.9, Total Bilirubin 0.60, AST 23, ALT 42, Alkaline Phosphatase 114, Total Protein 6.3 L, Albumin 2.7 L, Globulin 3.6, Albumin/Globulin Ratio 0.8 L 08/05/20 14:50: Lactic Acid 1.1 08/05/20 16:45: Urine Color Yellow, Urine Clarity Cloudy, Urine pH 8.0, Ur Specific [place] 1.015, Urine Protein Negative, Urine Glucose (UA) Normal, Urine Ketones Negative, Urine Occult Blood Negative, Urine Nitrite Negative, Urine Bilirubin Negative, Urine Urobilinogen Normal, Ur Leukocyte Esterase 500 H, Urine RBC 0 SEEN, Urine WBC 0-5 SEEN, Ur Squamous Epith Cells 0-5 SEEN, Ur Transition Epith Cell 0-5 SEEN, Amorphous Sediment 1+, Urine Bacteria RARE, Urine Mucus 0 SEEN 08/06/20 05:53: WBC 0.4 L*, RBC 4.40, Hgb 11.7 L, Hct 36.9 L, MCV 83.9, MCH 26.6 L, MCHC 31.7 L, RDW Std Deviation 43.2, RDW Coeff of Jose 14.0, Plt Count 111 L, MPV 9.5, Immature Gran % (Auto) 4.900 H, Neut % (Auto) 7.3 L, Lymph % (Auto) 53.7 H, Barron % (Auto) 26.8 H, Eos % (Auto) 4.9, Baso % (Auto) 2.4 H, Absolute Neuts (auto) 0.0 L, Absolute Lymphs (auto) 0.22 L, Nucleated RBC % 0, Different ial Comment SCANNED, Diff Path Review February foll, Platelet Estimate SLT 08/06/20 05:53: Sodium 136, Potassium 3.7, Chloride 105, Carbon Dioxide 26.0, Anion Gap 5, BUN 13, Creatinine 0.78, Estim Creat Clear Calc 54.57, Est GFR (MDRD) Af Amer 95, Est GFR (MDRD) Non-Af 79, BUN/Creatinine Ratio 16.7, Glucose 94, Calcium 8.0 L Current Medications Acetaminophen (Acetaminophen 325 Mg Tablet) 650 mg PO Q6H PRN PRN PRN Reason: Pain Score 1-10/Temp > 100.7 F Al Hydroxide/Mg Hydroxide (Mag Hydrox/Al Hydrox/Simeth 30 Ml Udc) 15 ml PO Q6H PRN PRN PRN Reason: Heartburn, indigestion Amlodipine Besylate (Amlodipine 10 Mg Tablet) 10 mg PO DAILY [facility] Last Admin: 08/06/20 10:19 Dose: 10 mg Documented by: Enoxaparin Sodium (Enoxaparin 30 Mg/0.3 Ml Syringe) 30 mg SC DAILY [facility] Last Admin: 08/06/20 10:19 Dose: 30 mg Documented by: Heparin Sodium (Beef Lung) (Heparin Pf Lock 10 Units/Ml 50 Units/5 Ml Syringe) 50 units IV UD PRN PRN Reason: Port-a-Cath (VAD)Heparin Flush Sodium Chloride () 1,000 mls @ 75 mls/hr IV .[id number] [facility] Last Admin: 08/06/20 10:37 Dose: 75 mls/hr Documented by: Meropenem 2 gm/ Sodium (Chloride) 140 mls @ 97 mls/hr IV Q8 [facility] Last Admin: 08/06/20 14:06 Dose: 97 mls/hr Documented by: Nystatin (Nystatin 500,000 Unit/5 Ml Udc) 500,000 unit PO 4X/DAY [facility] Last Admin: 08/06/20 14:06 Dose: 500,000 unit Documented by: Ondansetron HCl (Ondansetron 4 Mg/2 Ml Vial) 4 mg IV Q8H PRN PRN PRN Reason: NAUSEA/VOMITING Pantoprazole Sodium (Pantoprazole Sodium 40 Mg Tablet) 40 mg PO DAILY [facility] Last Admin: 08/06/20 10:21 Dose: 40 mg Documented by: Senna/Docusate Sodium (Senna/Docusate Sodium 1 Tablet) 2 tablet PO BID PRN PRN PRN Reason: Constipation Sodium Chloride (0.9% Saline Lock 10 Ml Syringe) 10 - 40 ml IV UD PRN PRN Reason: Port-a-Cath (VAD) Flush Sodium Chloride (0.9 % Nacl (Sterile) Posiflush 10 Ml) 10 - 40 ml IV UD PRN PRN Reason: Port access or dressing change Tbo-Filgrastim (Tbo-Filgrastim 300 Mcg/0.5 Ml Ml) 300 mcg SC DAILY [facility] Last Admin: 08/06/20 10:17 Dose: 300 mcg Documented by: Zolpidem Tartrate (Zolpidem Tartrate 5 Mg Tablet) 5 mg PO QHS PRN PRN PRN Reason: INSOMNIA Assessment/Plan I agree with the above and the following is refection of my own independent history and physical Neutropenic Fever -Granix 300 mcg daily--> -no further fevers since yesterday afternoon -cultures are pending (blood and urine) -will continue meropenem for now and would like to see white count (ANC) > 500 x 2 days prior narrowing of abx and then may be able to transition to oral abx for d/c -consult ID for input -medport is new-->placed 07/24/2020 -first round of chemo was 07/31 -CXR was unremarkable -pt has a chronic cough that started prior to all of this -neutropenic precautions-initiated today -check PCT in am Pancytopenia -counts are stable except for white count -monitor -Granix Oral Thrush -continue nystatin Oral Ulcers -able to eat without trouble -could consider viscous lido if problematic HTN -continue Amlodipine Tachycardia -mild and stable -monitor for now Vit D Deficiency -restart Ergo at d/c DVT Prophylaxis -Lovenox daily Inpatient E&M: 12648 Subs Hosp L2
--- NOTE | 2020-08-06 10:45 | CASEMGMT ---
RN HUMBERTO Face to Face with patient for initial transition planning/care coordination assessment. RN CM introduced self and role at [facility]. Patient lying in bed, alert and oriented. Patient willing to participate in assessment and is able to answer all questions appropriately. Care providers, pharmacy, and demographics verified. Patient wishes to discharge home, denies need for home health at this time. Patient states she has no further needs or concerns at this time. CM to follow for discharge planning needs that may arise. PCP: Dr. Hema Coffman from [facility] patient interested in PCP in [place] since she is moving to [place] Specialists: none Preferred Pharmacy: [facility] Insurance: [facility], [employer] Prescription Benefit: yes Living Will/HPOA: yes, sister Courtney Sheffield LNOK: sister Living Arrangements: Patient lives with sister in a condo with no steps to enter. Patient states she is independent at home. Transportation: sister DME/HHC: Patient denies any DME or previous HHC. Disposition Plan: Patient to discharge home with family support and follow-up plans in place. January BROCK, RN, CM
--- NOTE | 2020-08-06 11:22 | CASEMGMT ---
Social Work Note LUIS E reviewed chart. Pt had recent diagnosis of metastatic breast cancer on July 21. SW in to speak with pt regarding recent cancer diagnosis. SW introduced self and role at [facility]. Pt is alert and orientated x3. Pt confirms that she was diagnosed with breast cancer end of May/beginning of June. Pt states that she suspected it, was in denial for a little bit. Pt states her oncologist is Dr. Mary. SW spoke with pt regarding coping of diagnosis. Pt states that she has good family support, specifically identifies her sister as being good support for her. Pt states she recently moved in with her sister and its been enjoyable. Pt states its nice to be around her sister and hang out with her. Pt states she also has a her [employer] that is good support. Pt states her cheondoism is in [facility] though and it used to be down the street from her. Pt states she is able to call people from [employer] though and identifies her cheondoism as good support as well. Pt denied needing any additional support or resources at this time. January Mujica REMOTE COMPUTER TERMINAL OPERATOR, PRIMARY THERAPIST
[2020-08-06 14:53] LABS: Pathologist Review Reviewed
[2020-08-07] VITALS (12 sets, daily range): BP systolic 111–130; BP diastolic 57–62; PULSE 87–107; RESP 16–18; TEMP 36.4–38.2; O2SAT 94–96
[2020-08-07] MEDS: Acetaminophen 325 MG Tablet 650 MG PO ×2 (00:03→18:22)
[2020-08-07] MEDS: 0.9% Normal Saline 1,000 ML 75 ML IV ×2 (00:57→14:15)
[2020-08-07 06:08] LABS: Hematocrit 36.6 % (37-47); Hemoglobin 11.4 g/dL (12.0-15.0); Mean Corp Hgb Conc 31.1 g/dL (32-36); Mean Corpuscular Hgb 26.6 pg (27.0-32.0); Mean Corpuscular Volume 85.5 fL (81-99); Mean Platelet Vol. 9.7 fl (6.2-12.0); POSITIVE COUNT YES; Platelet Count 112 K/mm3 (150-450); RBC Distribution Width CV 14.1 % (11.6-14.6); RBC Distribution Width SD 43.8 fl (35.1-43.9); Red Blood Count 4.28 M/mm3 (4.2-5.4)
[2020-08-07 06:14] LABS: Scan Indicated on CBC? Y/N YES- FLAGS NOTED
[2020-08-07 06:15] LABS: White Blood Count 0.7 K/mm3 (4.4-11.0)
[2020-08-07 06:48] LABS: Differential Comment SCANNED
[2020-08-07] MEDS: TBO-FILGRASTIM 300 MCG/0.5 ML ML SC (10:19)
[2020-08-07 10:20] LABS: Procalcitonin 0.11 ng/mL (0.00-0.09)
[2020-08-07] MEDS: Enoxaparin 30 MG/0.3 ML Syringe SC (10:20)
[2020-08-07] MEDS: amLODIPine 10 MG Tablet PO (10:20)
[2020-08-07] MEDS: Pantoprazole Sodium 40 MG Tablet PO (10:20)
[2020-08-07] MEDS: NYSTATIN 500,000 UNIT/5 ML UDC 500000 UNIT PO ×4 (10:24→21:23)
--- NOTE | 2020-08-07 11:12 | CON.PCM_ITS ---
Problem List (1) Neutropenia with fever Status: Acute Reason for Consult: neutropenic fever Consulted by: Dr. Parr History of Present Illness: The patient is a 65 year old F with recent dx breast cancer. Follows with Dr. Mary. Had R chest port placed, started on chemo one week ago. On 07/04, started to have fever, chills. No other focal symptoms except for a mouth sore which quickly resolved. No issues with port. Sent to ED, fever to 102.2, started on meropenem. WBC remains low, but feeling fine. No aches, no abd pain, no n/v/d, no dysuria, no sick contacts, no cough or SOB. Full ROS performed and neg except as noted above - Medical History Past Medical History (Chronic Problems): Chronic Problems Hypertension (Chronic) Metastatic breast cancer (Chronic) Allergies/Adverse Reactions: Allergies No Known Allergies Allergy (Verified 08/05/20 13:26) Home Medications: Ambulatory Orders Medication Instructions Recorded Amlodipine [Norvasc] 10 mg PO DAILY 08/05/20 Ergocalciferol (Vitamin D2) 50,000 unit PO TUFR 08/05/20 [Vitamin D2] - Social History Tobacco Use: non-smoker Vital Signs Temp Pulse Resp BP Pulse Ox 97.6 F L 89 18 111/60 94 08/07/20 02:30 08/07/20 03:53 08/07/20 02:30 08/07/20 02:30 08/07/20 07:03 Oxygen Delivery Method Room Air Weight: 63.321 kg Body Mass Index (BMI) 21.2 Microbiology Past 72 Hours 08/05/20 16:45 Urine Culture - Final Urine, Clean Catch Culture exhibits no growth. 08/05/20 14:50 Blood Culture - Preliminary Blood Culture (Wb) #2 - Port NO GROWTH IN 14 DAYS 08/05/20 15:20 Blood Culture - Preliminary Blood Culture (Wb) - Port No growth in 48 hours. Laboratory Tests Past 24 Hrs 08/05/20 08/07/20 08/07/20 14:50 05:30 05:30 WBC 0.7 L* RBC 4.28 Hgb 11.4 L Hct 36.6 L MCV 85.5 MCH 26.6 L MCHC 31.1 L RDW Std Deviation 43.8 RDW Coeff of Jose 14.1 Plt Count 112 L MPV 9.7 Differential Comment SCANNED Diff Path Review Reviewed February foll Procalcitonin 0.11 H - Other Studies Radiology: [] reviewed Other Studies: [] Route of nutrition/ use of supplements: [] Nutritional Intake: [] IV Site: [] Jin Catheter: [] - Physical Exam General: Alert, Oriented x3, Cooperative, No apparent distress HEENT: Atraumatic, PERRLA, EOMI Neck: Supple, No Nodes Lungs: Clear to auscultation, Normal air movement Cardiovascular: Regular rate, Regular Rhythm, No murmurs Abdomen: Soft, Non Tender, Non-Distended Extremities: No edema Skin: No rashes IV Site: - - port no redness or tenderness Musculoskeletal: No Tenderness to Palpation of Joints or Extremities Neurological: Cranial nerves II-XII grossly intact - Assessment/Plan Antibiotics: [] Assessment/Plan: [] Active and Suspected Problems Neutropenia with fever (Acute) neutropenic fever with recent 1st round of chemo a week ago for breast cancer. Consider consulting oncology for assistance due to persistent neutropenia. Fever resolved, feeling fine, bcx neg. Cont meropenem until counts recover. Would check cbc with diff daily to help monitor her ANC. Will follow, thank you, d/w community case manager.
[2020-08-07 13:53] LABS: Pathologist Review Reviewed
[2020-08-07 13:58] LABS: Pathologist Review Reviewed
--- NOTE | 2020-08-07 16:24 | PN_ITS ---
Patient Problems: Active and Suspected Problems Neutropenia with fever (Acute) Subjective: Pt states that she is feeling well but understands that she needs to stay and wants to do whatever she needs to do to stay safe and get better. Vitals/I&O's: Vital Signs Temp Pulse Resp BP Pulse Ox 98.0 F 98 16 130/61 H 95 08/07/20 10:00 08/07/20 10:00 08/07/20 10:00 08/07/20 10:00 08/07/20 10:00 Oxygen Delivery Method Room Air Weight: 63.321 kg Body Mass Index (BMI) 21.2 Intake and Output for Last 24 Hours 08/05/20 08/06/20 08/07/20 23:59 23:59 23:59 Intake Total 1046.13 / 1046.13 2960 / 2960 1637.5 / 1637.5 Balance 1046.13 / 1046.13 2960 / 2960 1637.5 / 1637.5 General: Alert, Oriented x3, Cooperative, No apparent distress, Well developed, Well nourished, - - pt up walking hallways HEENT: Atraumatic, Normocephalic Oral: Moist Mucosa, Ulcerations Present - much improved Neck: Supple, Trachea Midline Lungs: Clear to auscultation, Normal air movement, No rhonchi, No wheeze, No rales Cardiovascular: Regular Rhythm, Normal S1, Normal S2, No murmurs, No Ectopic Activity, No rub noted, No Gallop, Tachycardic - mild Abdomen: Bowel Sounds Present, Soft, Non Tender, Non-Distended, No Hepato- splenomegaly, No hernias noted Extremities: No clubbing, No cyanosis, No edema, Capillary Refill Less than 3 Seconds, Peripheral Pulses Normal Skin: - - Med[place] R chest wall Neurological: Cranial nerves II-XII grossly intact, Neuro grossly intact, Gait narrow based and stable Psych/Mental Status: Normal Affect, Appropriate, Alert and oriented to time, place, person, mood and affect Microbiology Past 72 Hours 08/05/20 16:45 Urine, Clean Catch Urine Culture - Final Culture exhibits no growth. 08/05/20 14:50 Blood Culture (Wb) #2 - Port Blood Culture - Preliminary NO GROWTH IN 14 DAYS 08/05/20 15:20 Blood Culture (Wb) - Port Blood Culture - Preliminary No growth in 48 hours. Laboratory Results 08/06/20 05:53: Diff Path Review Reviewed 08/07/20 05:30: WBC 0.7 L*, RBC 4.28, Hgb 11.4 L, Hct 36.6 L, MCV 85.5, MCH 26.6 L, MCHC 31.1 L, RDW Std Deviation 43.8, RDW Coeff of Jose 14.1, Plt Count 112 L, MPV 9.7, Differential Comment SCANNED, Diff Path Review Reviewed 08/07/20 05:30: Procalcitonin 0.11 H Current Medications Acetaminophen (Acetaminophen 325 Mg Tablet) 650 mg PO Q6H PRN PRN PRN Reason: Pain Score 1-10/Temp > 100.7 F Last Admin: 08/07/20 00:03 Dose: 650 mg Documented by: Al Hydroxide/Mg Hydroxide (Mag Hydrox/Al Hydrox/Simeth 30 Ml Udc) 15 ml PO Q6H PRN PRN PRN Reason: Heartburn, indigestion Amlodipine Besylate (Amlodipine 10 Mg Tablet) 10 mg PO DAILY [facility] Last Admin: 08/07/20 10:20 Dose: 10 mg Documented by: Enoxaparin Sodium (Enoxaparin 30 Mg/0.3 Ml Syringe) 30 mg SC DAILY [facility] Last Admin: 08/07/20 10:20 Dose: 30 mg Documented by: Ergocalciferol (Ergocalciferol 50,000 Unit Capsule) 50,000 unit PO TuFr@1000 [facility] Heparin Sodium (Beef Lung) (Heparin Pf Lock 10 Units/Ml 50 Units/5 Ml Syringe) 50 units IV UD PRN PRN Reason: Port-a-Cath (VAD)Heparin Flush Sodium Chloride () 1,000 mls @ 75 mls/hr IV .[id number] [facility] Last Admin: 08/07/20 14:15 Dose: 75 mls/hr Documented by: Meropenem 2 gm/ Sodium (Chloride) 140 mls @ 97 mls/hr IV Q8 [facility] Last Admin: 08/07/20 14:17 Dose: 97 mls/hr Documented by: Nystatin (Nystatin 500,000 Unit/5 Ml Udc) 500,000 unit PO 4X/DAY [facility] Last Admin: 08/07/20 14:25 Dose: 500,000 unit Documented by: Ondansetron HCl (Ondansetron 4 Mg/2 Ml Vial) 4 mg IV Q8H PRN PRN PRN Reason: NAUSEA/VOMITING Pantoprazole Sodium (Pantoprazole Sodium 40 Mg Tablet) 40 mg PO DAILY [facility] Last Admin: 08/07/20 10:20 Dose: 40 mg Documented by: Senna/Docusate Sodium (Senna/Docusate Sodium 1 Tablet) 2 tablet PO BID PRN PRN PRN Reason: Constipation Sodium Chloride (0.9% Saline Lock 10 Ml Syringe) 10 - 40 ml IV UD PRN PRN Reason: Port-a-Cath (VAD) Flush Sodium Chloride (0.9 % Nacl (Sterile) Posiflush 10 Ml) 10 - 40 ml IV UD PRN PRN Reason: Port access or dressing change Tbo-Filgrastim (Tbo-Filgrastim 300 Mcg/0.5 Ml Ml) 300 mcg SC DAILY [facility] Last Admin: 08/07/20 10:19 Dose: 300 mcg Documented by: Zolpidem Tartrate (Zolpidem Tartrate 5 Mg Tablet) 5 mg PO QHS PRN PRN PRN Reason: INSOMNIA Medical Necessity - Tobacco Use Smoking Status: Never smoker Tobacco Use: Non-smoker Assessment/Plan All Active Problems Neutropenia with fever (Acute) Neutropenic Fever -Granix 300 mcg daily--> -no further fevers since yesterday afternoon -cultures are with NGTD -ID recommends continuing Merrem until counts recover -trending up--> CBC with Diff daily until ANC 500 -medport is new-->placed 07/24/2020 -first round of chemo was 07/31 -CXR was unremarkable -pt has a chronic cough that started prior to all of this -neutropenic precautions -PCT was 0.11 Pancytopenia -counts are stable except for white count -monitor -Granix -will d/w Dr Mary prior to d/c Metastatic Breast Cancer -follows with Dr. Mary (ED did d/w him) -dx on 07/21 and first chemo was 07/31 Oral Thrush -continue nystatin -much better Oral Ulcers -able to eat without trouble -look improved -HSV pending but suspect not the issues HTN -continue Amlodipine Tachycardia -better now but has had occasional very brief runs of SVT -monitor for now Vit D Deficiency -restart Ergo at d/c DVT Prophylaxis -Lovenox daily Inpatient E&M: 68815 Subs Hosp L2
[2020-08-08] VITALS (12 sets, daily range): BP systolic 106–126; BP diastolic 57–76; PULSE 89–106; RESP 16–18; TEMP 36.8–37.1; O2SAT 92–98
[2020-08-08] MEDS: 0.9% Normal Saline 1,000 ML 75 ML IV ×2 (03:41→17:32)
[2020-08-08 06:18] LABS: Hematocrit 37.2 % (37-47); Hemoglobin 11.7 g/dL (12.0-15.0); Mean Corp Hgb Conc 31.5 g/dL (32-36); Mean Corpuscular Hgb 26.7 pg (27.0-32.0); Mean Corpuscular Volume 84.9 fL (81-99); POSITIVE COUNT YES; POSITIVE DIFFERENTIAL YES; POSITIVE MORPHOLOGY YES; Platelet Count 136 K/mm3 (150-450); RBC Distribution Width CV 14.1 % (11.6-14.6); RBC Distribution Width SD 43.6 fl (35.1-43.9); Red Blood Count 4.38 M/mm3 (4.2-5.4); White Blood Count 2.5 K/mm3 (4.4-11.0)
[2020-08-08 06:19] LABS: Differential Indicated MANUAL DIFF
[2020-08-08 06:48] LABS: Total Cells Counted 100 (MANUAL DIFF)
[2020-08-08 07:01] LABS: Lymphocyte 38 % (19-41); Metamyelocyte 6 % (0-1); Monocyte 17 % (0-10); Myelocyte 3 (0-0); Neutrophil-Band 14 % (0-5); Neutrophil-Segmented 18 % (47-70); Promyelocyte 3 (0-0)
[2020-08-08 07:03] LABS: Platelet Estimate SLT DEC (ADEQ)
[2020-08-08 07:04] LABS: Absolute Lymphocyte Count 0.95 X10^3/uL (0.83-4.51); Absolute Neutrophil Count 0.8 X10^3/uL (2.0-7.7); Lymphocyte # 0.95 X10^3/ul (4.0)
[2020-08-08 07:06] LABS: Ovalocyte RARE; Polychromasia RARE
[2020-08-08] MEDS: 0.9 % NaCl (Sterile) Posiflush 10 mL IV (08:42)
--- NOTE | 2020-08-08 08:56 | PN_ITS ---
Patient Problems: Active and Suspected Problems Neutropenia with fever (Acute) Subjective: Low grade fever again last pm at about 1830 yesterday. ANC better. Pt states that she is feeling so much better overall. Vitals/I&O's: Vital Signs Temp Pulse Resp BP Pulse Ox 98.7 F 100 16 126/76 H 95 08/08/20 02:20 08/08/20 04:11 08/08/20 02:20 08/08/20 02:20 08/08/20 03:00 Oxygen Delivery Method Room Air Weight: 63.321 kg Body Mass Index (BMI) 21.2 Intake and Output for Last 24 Hours 08/06/20 08/07/20 08/08/20 23:59 23:59 23:59 Intake Total 2960 / 2960 2717.5 / 3117.5 170 / 1700 Balance 2960 / 2960 2717.5 / 3117.5 170 / 1699 General: Alert, Oriented x3, Cooperative, No apparent distress, Well developed, Well nourished, - - Upper middle aged [place] sitting on EOB talking on phone HEENT: Atraumatic, Normocephalic Oral: Moist Mucosa Lungs: Clear to auscultation, Normal air movement, No rhonchi, No wheeze, No rales Cardiovascular: Regular Rhythm, Normal S1, Normal S2, No murmurs, No Ectopic Activity, No rub noted, No Gallop, Tachycardic - mild Abdomen: Bowel Sounds Present, Soft, Non Tender, Non-Distended Extremities: No clubbing, No cyanosis, No edema, Capillary Refill Less than 3 Seconds, Peripheral Pulses Normal Skin: No rashes, No breakdown Neurological: Cranial nerves II-XII grossly intact, Neuro grossly intact Psych/Mental Status: Normal Affect, Appropriate, - - very pleasant, Alert and oriented to time, place, person, mood and affect Microbiology Past 72 Hours 08/05/20 16:45 Urine, Clean Catch Urine Culture - Final Culture exhibits no growth. 08/05/20 14:50 Blood Culture (Wb) #2 - Port Blood Culture - Preliminary NO GROWTH IN 14 DAYS 08/05/20 15:20 Blood Culture (Wb) - Port Blood Culture - Preliminary No growth in 48 hours. Laboratory Results 08/06/20 05:53: Diff Path Review Reviewed 08/07/20 05:30: Diff Path Review Reviewed 08/07/20 05:30: Procalcitonin 0.11 H 08/08/20 05:25: WBC 2.5 L, RBC 4.38, Hgb 11.7 L, Hct 37.2, MCV 84.9, MCH 26.7 L, MCHC 31.5 L, RDW Std Deviation 43.6, RDW Coeff of Jose 14.1, Plt Count 136 L, MPV 10.0, Neut % (Auto) Not Reportable, Absolute Neuts (auto) 0.8 L, Absolute Lymphs (auto) 0.95, Total Counted 100, Neutrophils % (Manual) 18 L, Band Neutrophils % 14 H, Lymphocytes % (Manual) 38, Monocytes % (Manual) 17 H, Metamyelocytes % 6 H , Myelocytes % 3 H, Promyelocytes % 3 H, Diff Path Review May foll, Platelet Estimate SLT DEC, Polychromasia RARE, Ovalocytes RARE Current Medications Acetaminophen (Acetaminophen 325 Mg Tablet) 650 mg PO Q6H PRN PRN PRN Reason: Pain Score 1-10/Temp > 100.7 F Last Admin: 08/07/20 18:22 Dose: 650 mg Documented by: Al Hydroxide/Mg Hydroxide (Mag Hydrox/Al Hydrox/Simeth 30 Ml Udc) 15 ml PO Q6H PRN PRN PRN Reason: Heartburn, indigestion Amlodipine Besylate (Amlodipine 10 Mg Tablet) 10 mg PO DAILY [facility] Last Admin: 08/07/20 10:20 Dose: 10 mg Documented by: Enoxaparin Sodium (Enoxaparin 30 Mg/0.3 Ml Syringe) 30 mg SC DAILY [facility] Last Admin: 08/07/20 10:20 Dose: 30 mg Documented by: Ergocalciferol (Ergocalciferol 50,000 Unit Capsule) 50,000 unit PO TuFr@1000 [facility] Heparin Sodium (Beef Lung) (Heparin Pf Lock 10 Units/Ml 50 Units/5 Ml Syringe) 50 units IV UD PRN PRN Reason: Port-a-Cath (VAD)Heparin Flush Sodium Chloride () 1,000 mls @ 75 mls/hr IV .[id number] [facility] Last Admin: 08/08/20 03:41 Dose: 75 mls/hr Documented by: Meropenem 2 gm/ Sodium (Chloride) 140 mls @ 97 mls/hr IV Q8 [facility] Last Admin: 08/08/20 05:39 Dose: 97 mls/hr Documented by: Metoprolol Tartrate (Metoprolol Tartrate 25 Mg Tablet) 25 mg PO BID [facility] Nystatin (Nystatin 500,000 Unit/5 Ml Udc) 500,000 unit PO 4X/DAY [facility] Last Admin: 08/07/20 21:23 Dose: 500,000 unit Documented by: Ondansetron HCl (Ondansetron 4 Mg/2 Ml Vial) 4 mg IV Q8H PRN PRN PRN Reason: NAUSEA/VOMITING Pantoprazole Sodium (Pantoprazole Sodium 40 Mg Tablet) 40 mg PO DAILY [facility] Last Admin: 08/07/20 10:20 Dose: 40 mg Documented by: Senna/Docusate Sodium (Senna/Docusate Sodium 1 Tablet) 2 tablet PO BID PRN PRN PRN Reason: Constipation Sodium Chloride (0.9% Saline Lock 10 Ml Syringe) 10 - 40 ml IV UD PRN PRN Reason: Port-a-Cath (VAD) Flush Sodium Chloride (0.9 % Nacl (Sterile) Posiflush 10 Ml) 10 - 40 ml IV UD PRN PRN Reason: Port access or dressing change Last Admin: 08/08/20 08:42 Dose: 10 ml Documented by: Tbo-Filgrastim (Tbo-Filgrastim 300 Mcg/0.5 Ml Ml) 300 mcg SC DAILY [facility] Last Admin: 08/07/20 10:19 Dose: 300 mcg Documented by: Zolpidem Tartrate (Zolpidem Tartrate 5 Mg Tablet) 5 mg PO QHS PRN PRN PRN Reason: INSOMNIA Medical Necessity - Tobacco Use Smoking Status: Never smoker Tobacco Use: Non-smoker Assessment/Plan All Active Problems Neutropenia with fever (Acute) Neutropenic Fever -Granix 300 mcg daily--> -fever again last pm with Tmax 100.7 -cultures are with NGTD -ANC 800 today but with fever suspect will hold on d/c -medport is new-->placed 07/24/2020 -first round of chemo was 07/31 -CXR was unremarkable -pt has a chronic cough that started prior to all of this -neutropenic precautions -PCT was 0.11 -ID following Pancytopenia -counts are recovering -monitor -Granix -will d/w Dr Mary prior to d/c Metastatic Breast Cancer -follows with Dr. Mary (ED did d/w him) -dx on 07/21 and first chemo was 07/31 Oral Thrush -continue nystatin -much better Oral Ulcers -able to eat without trouble -look improved -HSV pending but suspect not the issues HTN -continue Amlodipine Tachycardia -better now but has had occasional very brief runs of SVT -add metoprolol 25 mg BID and monitor -has room with BP Vit D Deficiency -restart Ergo at d/c DVT Prophylaxis -Lovenox daily Inpatient E&M: 12515 Subs Hosp L2
[2020-08-08] MEDS: Metoprolol Tartrate 25 MG Tablet PO ×2 (10:06→22:54)
[2020-08-08] MEDS: NYSTATIN 500,000 UNIT/5 ML UDC 500000 UNIT PO ×4 (10:06→22:54)
[2020-08-08] MEDS: amLODIPine 10 MG Tablet PO (10:06)
[2020-08-08] MEDS: Enoxaparin 30 MG/0.3 ML Syringe SC (10:06)
[2020-08-08] MEDS: Pantoprazole Sodium 40 MG Tablet PO (10:06)
[2020-08-08] MEDS: TBO-FILGRASTIM 300 MCG/0.5 ML ML SC (10:07)
[2020-08-08 12:51] LABS: Pathologist Review Reviewed
--- NOTE | 2020-08-08 16:37 | PN.ID_ITS ---
Patient Problems: Active and Suspected Problems Neutropenia with fever (Acute) Subjective: Feeling much better. Low grade temp last night. No n/v/d. - Physical Exam Vitals/I&O's: Vital Signs Temp Pulse Resp BP Pulse Ox 98.3 F 96 18 106/57 L 98 08/08/20 14:37 08/08/20 14:37 08/08/20 14:37 08/08/20 14:37 08/08/20 14:37 Oxygen Delivery Method Room Air Weight: 63.321 kg Body Mass Index (BMI) 21.2 Intake and Output for Last 24 Hours 08/06/20 08/07/20 08/08/20 23:59 23:59 23:59 Intake Total 2960 / 2960 2717.5 / 3117.5 2540 / 2540 Balance 2960 / 2960 2717.5 / 3117.5 2540 / 2540 General: Alert, Cooperative, No apparent distress Lungs: Clear to auscultation, Normal air movement Cardiovascular: Regular rate, Regular Rhythm Abdomen: Soft, Non Tender, Non-Distended Skin: No rashes Microbiology Past 72 Hours 08/05/20 16:45 Urine, Clean Catch Urine Culture - Final Culture exhibits no growth. 08/05/20 14:50 Blood Culture (Wb) #2 - Port Blood Culture - Preliminary NO GROWTH IN 14 DAYS 08/05/20 15:20 Blood Culture (Wb) - Port Blood Culture - Preliminary No growth in 48 hours. Laboratory Results 08/08/20 05:25: WBC 2.5 L, RBC 4.38, Hgb 11.7 L, Hct 37.2, MCV 84.9, MCH 26.7 L, MCHC 31.5 L, RDW Std Deviation 43.6, RDW Coeff of Jose 14.1, Plt Count 136 L, MPV 10.0, Neut % (Auto) Not Reportable, Absolute Neuts (auto) 0.8 L, Absolute Lymphs (auto) 0.95, Total Counted 100, Neutrophils % (Manual) 18 L, Band Neutrophils % 14 H, Lymphocytes % (Manual) 38, Monocytes % (Manual) 17 H, Metamyelocytes % 6 H , Myelocytes % 3 H, Promyelocytes % 3 H, Diff Path Review Reviewed, Platelet Estimate SLT DEC, Polychromasia RARE, Ovalocytes RARE Current Medications Acetaminophen (Acetaminophen 325 Mg Tablet) 650 mg PO Q6H PRN PRN PRN Reason: Pain Score 1-10/Temp > 100.7 F Last Admin: 08/07/20 18:22 Dose: 650 mg Documented by: Al Hydroxide/Mg Hydroxide (Mag Hydrox/Al Hydrox/Simeth 30 Ml Udc) 15 ml PO Q6H PRN PRN PRN Reason: Heartburn, indigestion Amlodipine Besylate (Amlodipine 10 Mg Tablet) 10 mg PO DAILY [facility] Last Admin: 08/08/20 10:06 Dose: 10 mg Documented by: Enoxaparin Sodium (Enoxaparin 30 Mg/0.3 Ml Syringe) 30 mg SC DAILY [facility] Last Admin: 08/08/20 10:06 Dose: 30 mg Documented by: Ergocalciferol (Ergocalciferol 50,000 Unit Capsule) 50,000 unit PO TuFr@1000 [facility] Last Admin: 08/08/20 10:06 Dose: 50,000 unit Documented by: Heparin Sodium (Beef Lung) (Heparin Pf Lock 10 Units/Ml 50 Units/5 Ml Syringe) 50 units IV UD PRN PRN Reason: Port-a-Cath (VAD)Heparin Flush Sodium Chloride () 1,000 mls @ 75 mls/hr IV .[id number] [facility] Last Admin: 08/08/20 03:41 Dose: 75 mls/hr Documented by: Meropenem 2 gm/ Sodium (Chloride) 140 mls @ 97 mls/hr IV Q8 [facility] Last Admin: 08/08/20 14:36 Dose: 97 mls/hr Documented by: Metoprolol Tartrate (Metoprolol Tartrate 25 Mg Tablet) 25 mg PO BID [facility] Last Admin: 08/08/20 10:06 Dose: 25 mg Documented by: Nystatin (Nystatin 500,000 Unit/5 Ml Udc) 500,000 unit PO 4X/DAY [facility] Last Admin: 08/08/20 14:36 Dose: 500,000 unit Documented by: Ondansetron HCl (Ondansetron 4 Mg/2 Ml Vial) 4 mg IV Q8H PRN PRN PRN Reason: NAUSEA/VOMITING Pantoprazole Sodium (Pantoprazole Sodium 40 Mg Tablet) 40 mg PO DAILY [facility] Last Admin: 08/08/20 10:06 Dose: 40 mg Documented by: Senna/Docusate Sodium (Senna/Docusate Sodium 1 Tablet) 2 tablet PO BID PRN PRN PRN Reason: Constipation Sodium Chloride (0.9% Saline Lock 10 Ml Syringe) 10 - 40 ml IV UD PRN PRN Reason: Port-a-Cath (VAD) Flush Sodium Chloride (0.9 % Nacl (Sterile) Posiflush 10 Ml) 10 - 40 ml IV UD PRN PRN Reason: Port access or dressing change Last Admin: 08/08/20 08:42 Dose: 10 ml Documented by: Tbo-Filgrastim (Tbo-Filgrastim 300 Mcg/0.5 Ml Ml) 300 mcg SC DAILY [facility] Last Admin: 08/08/20 10:07 Dose: 300 mcg Documented by: Zolpidem Tartrate (Zolpidem Tartrate 5 Mg Tablet) 5 mg PO QHS PRN PRN PRN Reason: INSOMNIA Medical Necessity - Tobacco Use Smoking Status: Never smoker Tobacco Use: Non-smoker Route of nutrition/ use of supplements: [] Nutritional Intake: [] IV Site: [] Jin Catheter: [] - Assessment/Plan Antibiotics: [] Assessment/Plan: [] Active and Suspected Problems Neutropenia with fever (Acute) neutropenic fever with recent 1st round of chemo a week ago for breast cancer. ANC much improved, cxs neg, feeling much better. Cont ida until ANC recovers over 1000 then ok for d/c home. Will follow, d/w Dr. Parr
[2020-08-09 02:39] VITALS: PULSE 96
[2020-08-09 04:22] VITALS: BP 107/53; PULSE 91; RESP 18; TEMP 36.9; O2SAT 92
[2020-08-09 07:27] LABS: Hematocrit 38.9 % (37-47); Hemoglobin 12.4 g/dL (12.0-15.0); Mean Corp Hgb Conc 31.9 g/dL (32-36); Mean Corpuscular Hgb 26.6 pg (27.0-32.0); Mean Corpuscular Volume 83.5 fL (81-99); Mean Platelet Vol. 10.4 fl (6.2-12.0); POSITIVE COUNT YES; POSITIVE DIFFERENTIAL YES; POSITIVE MORPHOLOGY YES; Platelet Count 148 K/mm3 (150-450); RBC Distribution Width CV 14.6 % (11.6-14.6); RBC Distribution Width SD 43.9 fl (35.1-43.9); Red Blood Count 4.66 M/mm3 (4.2-5.4)
[2020-08-09 07:29] LABS: Differential Indicated MANUAL DIFF
[2020-08-09 07:40] VITALS: O2SAT 93
[2020-08-09 07:57] LABS: Anion Gap 7 (5-15); BUN 9 mg/dL (7-18); BUN/Creat Ratio 11.9 RATIO (10-20); Calcium,Total 8.3 mg/dL (8.5-10.1); Chloride 106 mmol/L (98-107); Creatinine, Serum 0.76 mg/dL (0.55-1.02); EST Glomerular Filtration Rate 81 mL/min (>60); Est Glom Filt Rate - Afr Amer 98 mL/min (>60); Estimated Creatinine Clearance 54.57 ml/min; Glucose 85 mg/dL (74-106); Potassium 3.4 mmol/L (3.5-5.1); Sodium Level 136 mmol/L (136-145)
[2020-08-09 08:03] LABS: White Blood Count 11.6 K/mm3 (4.4-11.0)
[2020-08-09 08:08] LABS: Lymphocyte 10 % (19-41); Metamyelocyte 7 % (0-1); Monocyte 12 % (0-10); Myelocyte 3 (0-0); Neutrophil-Band 8 % (0-5); Neutrophil-Segmented 59 % (47-70); Plasma Cell 1 %; Total Cells Counted 100 (MANUAL DIFF)
[2020-08-09 08:08] LABS: HSV 1 By PCR Negative (Negative)
[2020-08-09 08:09] LABS: Platelet Estimate ADEQUATE (ADEQ); Schistocytes RARE; Toxic Granulation 1+
[2020-08-09 08:10] LABS: Absolute Lymphocyte Count 1.16 X10^3/uL (0.83-4.51); Absolute Neutrophil Count 7.8 X10^3/uL (2.0-7.7)
[2020-08-09] MEDS: 0.9% Normal Saline 1,000 ML 75 ML IV (08:34)
--- NOTE | 2020-08-09 09:39 | DCINST_ITS ---
- Discharge Diagnoses Current Active Problems: Current Active and Chronic Problems Hypertension (Chronic) Metastatic breast cancer (Chronic) Neutropenia with fever (Acute) You will use the following diet at home:: No restrictions, Regular Your food should be the consistency of: Regular Your liquids should be the consistency of: Regular/Thin Discharge Activity: Return to Normal Activity, No Restrictions, May Drive Call your doctor if you observe: Fever of 101 or Higher, Shortness of breath, Calf discomfort Allergies/Adverse Reactions: Allergies No Known Allergies Allergy (Verified 08/05/20 13:26) Medications to take at Discharge Amlodipine [Norvasc] 10 mg PO DAILY 08/05/20 Ergocalciferol (Vitamin D2) [Vitamin D2] 50,000 unit PO TUFR 08/05/20 Primary Care Physician: Nasreen Sierra,Out of [NON-STAFF] - Please follow up with your Primary Care Physician in: as needed Test Results: Test results from this visit will be discussed in further detail at your follow- up appointment, if applicable. Please Follow Up With: Germán Mary, When: as scheduled
--- NOTE | 2020-08-09 09:40 | DS.PCM_ITS ---
Discharge Date and Diagnosis - Problem List Patient Problems: Active and Suspected Problems Neutropenia with fever (Acute) Date of Admission: 08/05/20 Date of Discharge: 08/09/20 - Primary Discharge Diagnosis Acute Problems: Active Problems Neutropenia with fever (Acute) - Secondary Discharge Diagnosis Chronic Problems: Chronic Problems Hypertension (Chronic) Metastatic breast cancer (Chronic) Hospital Course and Treatment Operations: None Procedures: None Summary of Care Provided: Ms Berman is a 65 year old F who presented to the ED on 08/05/2020 due to fever. She was recently diagnosed with metastatic breast cancer on July 21. She underwent her first chemotherapy treatment July 31. She stated that she tolerated the treatment fairly well, however on 08/04 she began to have low- grade fever which worsened throughout the day. She reported she has had ongoing intermittent mild cough since prior to her diagnosis but had not changed and was not productive. She was admitted and started on meropenem. She was neutropenic with an ANC of 0.2. Blood cx were draw and were negative. CXR was neg and she had a neg urine cx. She was placed in neutropenic precautions and given Granix. ID evaluated her as well. She was treated with merrem until she was afebrile for 24 hrs and her counts recovered. On d/c her ANC was 7.8. She was clinically stable and feeling well and is to f/u with Dr. Mary as scheduled. Discharge Dx Neutropenic Fever Thrush Oral ulcers HTN Tachycardia Hypokalemia Metastatic Breast Cancer Pancytopenia Vitamin D Deficiency Patient Problems: Active and Suspected Problems Neutropenia with fever (Acute) - Physical Exam Vitals/I&O's: Vital Signs Temp Pulse Resp BP Pulse Ox 98.4 F 108 H 18 107/53 L 93 08/09/20 04:22 08/09/20 07:52 08/09/20 04:22 08/09/20 04:22 08/09/20 07:40 Oxygen Delivery Method Room Air Weight: 63.321 kg Body Mass Index (BMI) 21.2 Intake and Output for Last 24 Hours 08/07/20 08/08/20 08/09/20 23:59 23:59 23:59 Intake Total 2717.5 / 3117.5 4280 / 4430 1320 / 1320 Balance 2717.5 / 3117.5 4280 / 4430 1320 / 1320 General: Alert, Oriented x3, Cooperative, No apparent distress, Well developed, Well nourished HEENT: Atraumatic Lungs: Clear to auscultation, Normal air movement, No rhonchi, No wheeze, No rales Cardiovascular: Regular rate, Regular Rhythm, Normal S1, Normal S2, No murmurs, No Ectopic Activity, No rub noted, No Gallop Abdomen: Bowel Sounds Present, Soft, Non Tender, Non-Distended, No Hepato- splenomegaly Extremities: No clubbing, No cyanosis, No edema Skin: No rashes, No breakdown, - - medport in R chest Neurological: Cranial nerves II-XII grossly intact, Neuro grossly intact Psych/Mental Status: Normal Affect, Appropriate, Alert and oriented to time, place, person, mood and affect Microbiology Past 72 Hours 08/05/20 16:45 Urine, Clean Catch Urine Culture - Final Culture exhibits no growth. 08/05/20 14:50 Blood Culture (Wb) #2 - Port Blood Culture - Preliminary NO GROWTH IN 14 DAYS 08/05/20 15:20 Blood Culture (Wb) - Port Blood Culture - Preliminary No growth in 48 hours. Laboratory Results 08/08/20 05:25: Diff Path Review Reviewed 08/09/20 06:30: WBC 11.6 H, RBC 4.66, Hgb 12.4, Hct 38.9, MCV 83.5, MCH 26.6 L, MCHC 31.9 L, RDW Std Deviation 43.9, RDW Coeff of Jose 14.6, Plt Count 148 L, MPV 10.4, Neut % (Auto) Not Reportable, Absolute Neuts (auto) 7.8 H, Absolute Lymphs (auto) 1.16, Total Counted 100, Neutrophils % (Manual) 59, Band Neutrophils % 8 H, Lymphocytes % (Manual) 10 L, Monocytes % (Manual) 12 H, Metamyelocytes % 7 H, Myelocytes % 3 H, Plasma Cell % (Manual) 1, Diff Path Review May foll, Toxic Granulation 1+, Platelet Estimate ADEQUATE, Schistocytes RARE 08/09/20 06:30: Sodium 136, Potassium 3.4 L, Chloride 106, Carbon Dioxide 23.0, Anion Gap 7, BUN 9, Creatinine 0.76, Estim Creat Clear Calc 54.57, Est GFR (MDRD) Af Amer 98, Est GFR (MDRD) Non-Af 81, BUN/Creatinine Ratio 11.9, Glucose 85, Calcium 8.3 L Current Medications Acetaminophen (Acetaminophen 325 Mg Tablet) 650 mg PO Q6H PRN PRN PRN Reason: Pain Score 1-10/Temp > 100.7 F Last Admin: 08/07/20 18:22 Dose: 650 mg Documented by: Al Hydroxide/Mg Hydroxide (Mag Hydrox/Al Hydrox/Simeth 30 Ml Udc) 15 ml PO Q6H PRN PRN PRN Reason: Heartburn, indigestion Amlodipine Besylate (Amlodipine 10 Mg Tablet) 10 mg PO DAILY [facility] Last Admin: 08/08/20 10:06 Dose: 10 mg Documented by: Enoxaparin Sodium (Enoxaparin 30 Mg/0.3 Ml Syringe) 30 mg SC DAILY [facility] Last Admin: 08/08/20 10:06 Dose: 30 mg Documented by: Ergocalciferol (Ergocalciferol 50,000 Unit Capsule) 50,000 unit PO TuFr@1000 [facility] Last Admin: 08/08/20 10:06 Dose: 50,000 unit Documented by: Heparin Sodium (Beef Lung) (Heparin Pf Lock 10 Units/Ml 50 Units/5 Ml Syringe) 50 units IV UD PRN PRN Reason: Port-a-Cath (VAD)Heparin Flush Sodium Chloride () 1,000 mls @ 75 mls/hr IV .[id number] [facility] Last Admin: 08/09/20 08:34 Dose: 75 mls/hr Documented by: Meropenem 1 gm/ Sodium (Chloride) 120 mls @ 33 mls/hr IV Q8 [facility] Last Admin: 08/09/20 05:58 Dose: 33 mls/hr Documented by: Metoprolol Tartrate (Metoprolol Tartrate 25 Mg Tablet) 25 mg PO BID [facility] Last Admin: 08/08/20 22:54 Dose: 25 mg Documented by: Nystatin (Nystatin 500,000 Unit/5 Ml Udc) 500,000 unit PO 4X/DAY [facility] Last Admin: 08/08/20 22:54 Dose: 500,000 unit Documented by: Ondansetron HCl (Ondansetron 4 Mg/2 Ml Vial) 4 mg IV Q8H PRN PRN PRN Reason: NAUSEA/VOMITING Pantoprazole Sodium (Pantoprazole Sodium 40 Mg Tablet) 40 mg PO DAILY [facility] Last Admin: 10/16/20 10:06 Dose: 40 mg Documented by: Senna/Docusate Sodium (Senna/Docusate Sodium 1 Tablet) 2 tablet PO BID PRN PRN PRN Reason: Constipation Sodium Chloride (0.9% Saline Lock 10 Ml Syringe) 10 - 40 ml IV UD PRN PRN Reason: Port-a-Cath (VAD) Flush Sodium Chloride (0.9 % Nacl (Sterile) Posiflush 10 Ml) 10 - 40 ml IV UD PRN PRN Reason: Port access or dressing change Last Admin: 08/08/20 08:42 Dose: 10 ml Documented by: Tbo-Filgrastim (Tbo-Filgrastim 300 Mcg/0.5 Ml Ml) 300 mcg SC DAILY [facility] Last Admin: 08/08/20 10:07 Dose: 300 mcg Documented by: Zolpidem Tartrate (Zolpidem Tartrate 5 Mg Tablet) 5 mg PO QHS PRN PRN PRN Reason: INSOMNIA Discharge Activity: Return to Normal Activity, No Restrictions, May Drive Call your doctor if you observe: Fever of 101 or Higher, Shortness of breath, Calf discomfort Home Medications: Medications to take at Discharge Amlodipine [Norvasc] 10 mg PO DAILY 08/05/20 Ergocalciferol (Vitamin D2) [Vitamin D2] 50,000 unit PO TUFR 08/05/20 Primary Care Physician: Nasreen Doctor,Out of [NON-STAFF] - Please follow up with your Primary Care Physician in: as needed Please Follow Up With: Germán Mary DO When: as scheduled Medical Necessity - Tobacco Use Smoking Status: Never smoker Tobacco Use: Non-smoker Meaningful Use Info Meaningful Use Diagnoses (Choose all that apply): None applicable Inpatient E&M: 66161 Disch Hosp
[2020-08-09 10:54] VITALS: BP 113/58; PULSE 106; RESP 18; TEMP 36.4; O2SAT 92
[2020-08-09] MEDS: Metoprolol Tartrate 25 MG Tablet PO (10:59)
[2020-08-09] MEDS: Enoxaparin 30 MG/0.3 ML Syringe SC (10:59)
[2020-08-09] MEDS: amLODIPine 10 MG Tablet PO (11:00)
[2020-08-09] MEDS: Pantoprazole Sodium 40 MG Tablet PO (11:00)
[2020-08-09] MEDS: NYSTATIN 500,000 UNIT/5 ML UDC 500000 UNIT PO (11:00)
[2020-08-09] MEDS: TBO-FILGRASTIM 300 MCG/0.5 ML ML SC (11:01)
[2020-08-09] MEDS: 0.9% Saline Lock 10 ML Syringe IV (12:09)
[2020-08-09 15:06] LABS: HSV 2 By PCR Negative (Negative)
[2020-08-11 14:21] LABS: Pathologist Review Reviewed
== END 2020-08-09 13:40 | disposition home or self-care (01) | DRG 809 ==
LOC: ED 16:44 → MS3 17:15
PROVIDERS: Nurse Practitioner Family; Admitting Provider Hospitalist; Emergency Provider Emergency Medicine; Visit Provider Internal Medicine
DX: D70.9 Neutropenia, unspecified (principal); C78.00 Secondary malignant neoplasm of unspecified lung; C79.51 Secondary malignant neoplasm of bone; B37.0 Candidal stomatitis; D61.810 Antineoplastic chemotherapy induced pancytopenia; R50.81 Fever presenting with conditions classified elsewhere; I10 Essential (primary) hypertension; C50.919 Malignant neoplasm of unspecified site of unspecified female breast; T45.1X5A Adverse effect of antineoplastic and immunosuppressive drugs, initial encounter; K12.1 Other forms of stomatitis; E87.6 Hypokalemia; E55.9 Vitamin D deficiency, unspecified
CPT/HCPCS: 36415; 36591; 71046; 80048; 80053; 81001; 83605; 84145; 85025; 85027; 85610; 85730; 87040; 87086; 87529; 93005; 99251; 99281; J2185; J7030; J7050; A4216; G0463; J1447

== ENCOUNTER 2020-12-07 09:39 | Emergency (ER) | payer MEDICARE, OTHER, SELFPAY ==
[2020-08-05 17:42] VITALS: BMI 21.2
[2020-12-07 09:40] VITALS: BP 166/86; PULSE 102; RESP 18; TEMP 36.3; O2SAT 100; BMI 22.2
--- NOTE | 2020-12-07 09:53 | VDUE_ITS ---
Reason For Study: Swelling Left Proximal Left jugular vein is spontaneous, widely patent, phasic, with no intraluminal echogenicity noted. Left subclavian vein is spontaneous, widely patent, phasic, with no intraluminal echogenicity noted. Left Arm Left axillary vein is spontaneous, patent, phasic, competent, compressible and demonstrates augmentation. Left brachial vein is compressible. Left cephalic vein is compressible. Left basilic vein is compressible. Left Lower Arm Left radial vein is compressible. Left ulnar vein is compressible. Patient Safety Prelim to Chidi. Interpretation Summary No evidence for acute deep venous thrombosis[left] upper extremity with patent and compressible cephalic and basilic veins. Ordering Physician: Kenneth Murillo Performed By: January White RVT ?
--- NOTE | 2020-12-07 09:54 | ED.VISSUMM ---
- ER Visit Summary Date of Service: 12/07/20 Chief Complaint: Left arm swelling History of Present Illness: The patient is a [address] Mary. She has a history of breast cancer with metastases to bone, lymph nodes, and lungs. She has not had a mastectomy or marsha dissection. She has a port on the right. Patient complains of swelling in her left arm that began November 26. It increased over the past few days and is much worse this morning. She denies any swelling to her legs. Sister feels as though the patient has intermittent swelling to her face. Patient is not sure about this. She reports that she has pain that she describes it as tightness that is 1 out of 10 at worst and she is pain-free currently. Is worsened by touching it or taking her blood pressure. It is relieved by nothing. Last chemo was approximately 3-1/2 weeks ago. She did have immunologic therapy 3 days ago. She states that she had a CT of her chest this week that she got the results back 3 days ago and that it was really good. Review of systems: General: No fever, chills, cold sweats. Cardiovascular: No chest pain, palpitations. Respiratory: No cough, shortness of breath, dyspnea on exertion. Gastrointestinal: No abdominal pain, nausea, vomiting, diarrhea, melena, or hematochezia. Genitourinary: No dysuria, frequency, hematuria. Skin: No rash. Neuro: No headache, numbness, weakness. Physical Examination: Vitals: Stable. Afebrile. General: Well-nourished and well-developed. Head: Normocephalic atraumatic. Neck: Supple, no lymphadenopathy. No JVD. Nontender. Cardiovascular: Regular rate and rhythm. No murmurs. Respiratory: No respiratory distress. Clear to auscultation bilaterally. Abdominal: Soft, nontender, nondistended, normal bowel sounds. No guarding, rebound, or peritoneal signs. Back: Nontender. Extremities: 2+ swelling of the left upper extremity that begins in the mid bicep and extends distally. There is minimal erythema over the bicep. Is mildly tender to palpation. She has a 2+ radial pulse and normal sensation light touch.. Skin: Normal color, no rash. Neurologic: Alert and oriented ?3. Cranial nerves II through XII are intact. Normal strength and sensation. Psych: Normal affect. Test Results: Left upper extremity Doppler ultrasound is negative. Emergency Department Course and Treatment: Patient refused pain medications. She is resting comfortably. Treatment Plan: The patient was discussed with Dr. Mary and it is not felt that any further evaluation is needed to be undertaken at this time. She will be discharged with instructions to call the office tomorrow to get a compression sleeve. Return to the emergency department for any worsening symptoms. Disposition: To home in improved and stable condition. Impression: 1. Left upper extremity swelling. 2. History of breast cancer with metastases. This note was generated with [employer] software. It may contain incorrect words, spelling, and punctuation that were not noted in review of the chart prior to signing ED Disposition - Plan for ED Patient: Instructions: ED Peripheral Edema, Unilateral Referrals: Germán Mary DO [STAFF PHYSICIAN] - Additional Instructions: Call Dr. Mary's office in the morning to get a compression sleeve.
[2020-12-07 10:56] VITALS: RESP 17
== END 2020-12-07 10:56 | disposition home or self-care (01) ==
LOC: ED 10:45
PROVIDERS: Emergency Provider Emergency Medicine
DX: M79.89 Other specified soft tissue disorders (principal); Z85.3 Personal history of malignant neoplasm of breast
CPT/HCPCS: 93971; 99282

== ENCOUNTER 2020-12-31 11:07 | Emergency (ER) | payer MEDICARE, OTHER, SELFPAY ==
[2020-12-31 11:08] VITALS: BP 146/76; PULSE 114; RESP 18; TEMP 36.6; O2SAT 98; BMI 22.0
--- NOTE | 2020-12-31 11:23 | EKG12_ITS ---
Test Reason : CELLULITIS Blood Pressure : / mmHG Vent. Rate : 102 BPM Atrial Rate : 102 BPM P-R Int : 148 ms QRS Dur : 070 ms QT Int : 320 ms P-R-T Axes : 048 032 061 degrees QTc Int : 417 ms Sinus tachycardia Otherwise normal ECG Confirmed by EVERTON GONZALES, PETAR ([id number]), editor news KELOTN CUELLAR ([id number]) on 01/05/2021 10:14:18 A M Referred By: DC Confirmed By:AMIE TOSCANO MD
--- NOTE | 2020-12-31 11:24 | VDUE_ITS ---
Reason For Study: SWELLING Left Proximal Left jugular vein is spontaneous, widely patent, phasic, with no intraluminal echogenicity noted. Left subclavian vein is spontaneous, widely patent, phasic, with no intraluminal echogenicity noted. Left Arm Left axillary vein is spontaneous, patent, phasic, competent, compressible and demonstrates augmentation. Left brachial vein is compressible. Left cephalic vein is compressible. Left basilic vein is compressible. Left Lower Arm Left radial vein is compressible. Left ulnar vein is compressible. Interpretation Summary Left arm with no DVT or SVT. Ordering Physician: Timo Potts Performed By: Urszula Hassan, SAVANNAHCS, RVT ?
--- NOTE | 2020-12-31 11:24 | ED.VIS.GEN ---
History of Present Illness Chief Complaint: Cellulitis Informant: Patient Onset: Weeks - 3 Narrative: Presents ED private vehicle with her sister referred back in from her oncology office for evaluation concerning worsening cellulitis left upper extremity. Patient with diagnosis of metastatic breast cancer this past fall followed by Dr. Mary finished chemo treatment approximately 2 months ago. She is currently on immunotherapy every 3 weeks with last treatment 6 days ago. She reports persistent and worsening left upper extremity swelling she was seen in the ED less than a month ago with a negative ultrasound. She states there is no erythema at that time. She followed up in the oncology office reported there was some redness at the biceps in the mid forearm placed on Keflex for which she took for 8 days with no improvement. Therefore she stopped this. She followed up again 6 days ago was told the redness has worsened therefore was placed on Augmentin twice a day for 10 days. She states overnight redness is more worse throughout the arm and swelling is worse. She reported seem to get better at night. No fevers. No history of diabetes. Denies any chest pains or shortness of breath. Prior similar symptoms: No Past Medical History - Allergies and Home Meds Allergies/Adverse Reactions: Allergies No Known Allergies Allergy (Verified 12/31/20 11:13) Past Medical History: - - Hypertension, metastatic breast cancer. Surgical History: - - Med port right subclavian Smoking Status: Never smoker - Family History Maternal Family History: Reports: Dementia, Stroke Paternal Family History: Reports: Heart Disease Review of Systems General: Denies: Chills, Fever, Sweats Eyes: Denies: Visual changes - bilaterally, Diplopia ENT: Denies: Rhinorrhea, Sore throat Cardiovascular: Denies: Chest pain, Palpitations Respiratory: Denies: Dyspnea, Cough, Dyspnea on exertion Gastrointestinal: Denies: Abdominal pain, Nausea, Vomiting, Diarrhea, Melena, Hematochezia Genitourinary: Denies: Dysuria, Hematuria, Frequency Musculoskeletal: Reports: Swelling. Denies: Back pain, Extremity Pain Skin: Reports: Rash. Denies: Wounds Neurological: Denies: Headache, Weakness, Numbness Physical Exam Vital Signs/Narrative: Vital Signs Temp Pulse Resp BP Pulse Ox 12/31/20 11:08 97.9 F 114 H 18 146/76 H 98 Inital Vital Signs reviewed: Yes General: Well nourished, Well developed, No Acute Distress Head: Normocephalic, Atraumatic Eyes: Perrl, EOMI ENT: Moist mucous membranes, No rhinorrhea Neck: Supple, Nontender Cardiovascular: Regular rate, No murmurs, Tachycardia Respiratory: No distress, CTA bilaterally, Chest nontender Abdomen: Soft, Nontender, Nondistended, Normal bowel sounds Back: Nontender, Normal Inspection Extremities: Nontender, - - Left upper extremity: 2+ edema left upper extremity from the biceps down to the hands. Pulses were intact distally. Skin: Normal color, - - Left upper extremity: Erythema mid biceps down the arm, skin intact. Skin was cool to palpation. Blanchable. Neurological: Alert, Oriented x3, Cranial nerves II-XII grossly intact, Normal Strength, Normal Sensation Psychological: Normal affect, Normal Mood Diagnostic/Tx/Re-eval Abnormal Lab Results 12/31/20 12/31/20 12/31/20 12:10 12:10 12:10 WBC 3.9 L RBC 4.53 Hgb 12.3 Hct 40.7 MCV 89.8 MCH 27.2 MCHC 30.2 L RDW Std Deviation 49.3 H RDW Coeff of Jose 14.8 H Plt Count 228 MPV 9.0 Immature Gran % (Auto) 0.000 Neut % (Auto) 55.8 Lymph % (Auto) 27.7 [place] % (Auto) 12.2 H Eos % (Auto) 3.3 Baso % (Auto) 1.0 Absolute Neuts (auto) 2.2 Absolute Lymphs (auto) 1.09 Nucleated RBC % 0 PT 13.1 INR 1.0 APTT 37.7 H Sodium 140 Potassium 3.9 Chloride 107 Carbon Dioxide 29.0 Anion Gap 4 L BUN 15 Creatinine 0.78 Estim Creat Clear Calc 55.07 Est GFR (MDRD) Af Amer 95 Est GFR (MDRD) Non-Af 79 BUN/Creatinine Ratio 19.3 Glucose 96 Lactic Acid Calcium 9.0 Total Bilirubin 0.30 AST 19 ALT 19 Alkaline Phosphatase 71 Total Protein 6.1 L Albumin 3.0 L Globulin 3.1 Albumin/Globulin Ratio 1.0 12/31/20 12:10 WBC RBC Hgb Hct MCV MCH MCHC RDW Std Deviation RDW Coeff of Jose Plt Count MPV Immature Gran % (Auto) Neut % (Auto) Lymph % (Auto) [place] % (Auto) Eos % (Auto) Baso % (Auto) Absolute Neuts (auto) Absolute Lymphs (auto) Nucleated RBC % PT INR APTT Sodium Potassium Chloride Carbon Dioxide Anion Gap BUN Creatinine Estim Creat Clear Calc Est GFR (MDRD) Af Amer Est GFR (MDRD) Non-Af BUN/Creatinine Ratio Glucose Lactic Acid 1.2 Calcium Total Bilirubin AST ALT Alkaline Phosphatase Total Protein Albumin Globulin Albumin/Globulin Ratio - Medical Decision Making Patient reported increasing edema left arm with erythema however it does kristine, therefore less likely cellulitis and more vascular. I did obtain ultrasound again was negative. She was slightly tachycardic I did check labs and cultures. White count 3.9. Lactic acid is normal at 1.2. Blood culture pending. Given IV fluids heart rate did improve into the 80s. Clinically more concerns for vascular congestion. Adolfo wrap was placed. I spoke with covering oncologist Dr. Nielsen, reports patient to follow-up from the office to get a sleeve for her edema. She will finish her antibiotics of 2 days left. She will return if any worsening symptoms. All questions were answered. Patient is being discharged under pandemic conditions under declared global, national and state disaster activation, with limited medical resources. Patient and community understands this. Results discussed in layman's terms to the patient satisfaction. All questions answered in layman's terms. Patient understands importance of follow-up care as directed. Patient has been instructed to return to the ED immediately if new symptoms, problems, or questions occur. We mutually agree with the plan of disposition. The patient understand that they may call or return with any questions or concerns at any time. ED Disposition - Plan for ED Patient: Disposition: Home or Assisted Living Diagnosis: Edema, peripheral Instructions: ED Peripheral Edema, Unilateral Referrals: Germán Mary DO [Primary Care Provider] - 2 Days Additional Instructions: Ultrasound negative for DVT. Blood work stable cultures pending. Clinically concerns for vascular edema with erythema. He was erythema blanches. Finish your antibiotics. D/w Dr. Nielsen. follow-up with the office for plan sleeve for the edema.
[2020-12-31] MEDS: 0.9% Normal Saline 1,000 ML 150 ML IV (12:00)
[2020-12-31 12:31] VITALS: BP 132/70; PULSE 90; RESP 16; TEMP 36.6; O2SAT 99
[2020-12-31 12:32] LABS: Absolute Lymphocyte Count 1.09 X10^3/uL (0.83-4.51); Absolute Neutrophil Count 2.2 X10^3/uL (2.0-7.7); Basophil# 0.04 X10^3/uL; Eosinophil# 0.13 X10^3/uL; Eosinophils% 3.3 % (0-5); Hematocrit 40.7 % (37-47); Hemoglobin 12.3 g/dL (12.0-15.0); Lymphocyte # 1.09 X10^3/ul (4.0); Lymphocyte % 27.7 % (19-41); Mean Corp Hgb Conc 30.2 g/dL (32-36); Mean Corpuscular Hgb 27.2 pg (27.0-32.0); Mean Corpuscular Volume 89.8 fL (81-99); Monocyte# 0.48 X10^3/uL; Monocyte% 12.2 % (0-10); NRBC Flagged by Analyzer 0 % (0-5); Neutrophil % 55.8 % (47-70); Platelet Count 228 K/mm3 (150-450); RBC Distribution Width CV 14.8 % (11.6-14.6); RBC Distribution Width SD 49.3 fl (35.1-43.9); Red Blood Count 4.53 M/mm3 (4.2-5.4); White Blood Count 3.9 K/mm3 (4.4-11.0)
[2020-12-31 12:46] LABS: AST(SGOT) 19 U/L (15-37); Alanine Aminotransfer ALT/SGPT 19 U/L (13-56); Alkaline Phosphatase 71 U/L (45-117); Anion Gap 4 (5-15); BUN 15 mg/dL (7-18); BUN/Creat Ratio 19.3 RATIO (10-20); Chloride 107 mmol/L (98-107); Creatinine, Serum 0.78 mg/dL (0.55-1.02); EST Glomerular Filtration Rate 79 mL/min (>60); Est Glom Filt Rate - Afr Amer 95 mL/min (>60); Estimated Creatinine Clearance 55.07 ml/min; Globulin 3.1 g/dL (2.2-4.2); Glucose 96 mg/dL (74-106); Potassium 3.9 mmol/L (3.5-5.1); Protein, Total 6.1 g/dL (6.4-8.2); Sodium Level 140 mmol/L (136-145)
[2020-12-31 12:54] LABS: Lactic Acid 1.2 mmol/L (0.4-1.9); Partial Thromboplast Time 37.7 Seconds (24.1-36.2); Prothrombin Time (Protime)PT. 13.1 SECONDS (11.7-14.9)
[2020-12-31 14:10] VITALS: BP 132/69; PULSE 77; RESP 15; O2SAT 96
== END 2020-12-31 14:15 | disposition home or self-care (01) ==
PROVIDERS: Emergency Provider Emergency Medicine; PCP Internal Medicine Hematology & Oncology
DX: R60.9 Edema, unspecified (principal); I10 Essential (primary) hypertension; M79.89 Other specified soft tissue disorders
CPT/HCPCS: 36415; 36591; 80053; 83605; 85025; 85610; 85730; 87040; 93005; 93971; 99285; J7030; A4216

== ENCOUNTER → 2021-08-09 14:59 | Outpatient (CLI) | payer MEDICARE, OTHER, SELFPAY ==
[2021-08-09 15:01] LABS: Mucous, Urine 0 SEEN /hpf (<or=2+); Squamous Epithelial Cells - UA 0 SEEN /hpf (5-10)
[2021-08-09 15:16] LABS: Color, Urine Yellow (Yellow); Glucose, Dipstick Normal (Normal); Ketone-Dipstick Negative (Negative); Leukocyte Esterase-Dipstick 500 /ul (Negative); Nitrite-Dipstick Negative (Negative); Occult Blood-Urine 150 /ul (Negative); Protein-Dipstick 30 mg/dl (Negative); Urine Bilirubin Dipstick Negative (Negative); Urine Clarity Cloudy (Clear); Urine Urobilinogen Normal (Normal)
[2021-08-09 15:24] LABS: Bacteria 1+ /hpf (None Seen); White Blood Cells >100 SEEN /hpf (0-5)
[2021-08-09 15:25] LABS: Red Blood Cells-Urine 5-10 SEEN /hpf (0-5)
[2021-08-09 15:27] LABS: Yeast-Urine RARE /hpf (None Seen)
== END ==
PROVIDERS: PCP Internal Medicine Hematology & Oncology; Referring Provider Physician Assistant Medical; Visit Provider Physician Assistant Medical
DX: N39.0 Urinary tract infection, site not specified (principal)
CPT/HCPCS: 81001; 87086; 87088; 87186

== ENCOUNTER 2022-09-09 12:38 | Emergency (ER) | payer MEDICARE, OTHER, SELFPAY ==
[2022-09-09 12:39] VITALS: BP 107/72; PULSE 101; RESP 18; TEMP 36.7; O2SAT 100; BMI 20.6
--- NOTE | 2022-09-09 13:16 | ED.VIS.GI ---
HPI HPI - GI History of Present Illness Chief Complaint: Constipation Narrative Narrative: Patient presents with her sister due to not having a bowel movement in 7 days. She states she received a chemo treatment last for metastatic breast cancer and usually becomes constipated with chemo treatments. She states her last PET scan and MRI on ___did not show any cancer in the GI tract. Patient has taken six Colace treatments over the past week and four MiraLAX treatments between yesterday and today with her last treatment at 4 AM this morning. Her sister is a nurse and attempted to give her a saline enema earlier this morning which only resulted in a small amount of stool passing. Her sister also attempted digital disimpaction this morning and stated the stool was very hard and was unsuccessful in removing much of it. Patient stated she became very uncomfortable during the disimpaction due to it being painful and it almost made her pass out. Patient states the stool did not have a dark or tarry appearance and denies any blood in the stool. Patient denies abdominal pain, nausea, vomiting, diarrhea. She is able to tolerate food and liquids. PFSH PFS Home Medications amlodipine 10 mg tablet 10 mg PO DAILY 08/05/20 [History Last Taken 08/05/20] nitrofurantoin monohydrate/macrocrystals 100 mg capsule (Macrobid) 100 mg PO BID #20 caps 08/09/21 [Rx Last Taken Unknown] Allergy/AdvReac Type Severity Reaction Status Date / Time No Known Allergies Allergy Verified 09/09/22 12:39 Social History Smoking Status: Never smoker ROS ROS ED Constitutional Constitutional ED: Denies chills, fever(s) or sweats ENT ENT ED: Denies rhinorrhea or sore throat Cardiovascular Cardiovascular: Denies chest pain Respiratory/Chest Respiratory/Chest: Denies cough or dyspnea Gastrointestinal Gastrointestinal: Reports constipation; Denies abdominal pain, diarrhea, melena, nausea or vomiting Genitourinary Genitourinary ED: Denies dysuria, hematuria or urinary frequency Musculoskeletal Musculoskeletal: Denies myalgias Integumentary Denies Abrasions or rash Neurologic Neurologic: Denies headache(s), paresthesias or weakness Psychiatric Psychiatric: Denies anxiety EXAM Physical Exam Const Vital Signs: 09/09/22 12:39 Temperature 98.1 F Temperature Source Temporal Pulse Rate 101 H Respiratory Rate 18 Blood Pressure 107/72 Blood Pressure Mean 83 Pulse Ox 100 Oxygen Delivery Method Room Air Positive well nourished HEENT Reports moist mucous membranes normocephalic and atraumatic Eyes PERRL and EOMs intact bilaterally Neck supple Resp normal respiratory effort and clear to auscultation bilaterally Cardio regular rate, regular rhythm and no murmurs GI non-tender, non-distended and no masses Auscultation: hypoactive bowel sounds Palpation: soft Back/Spine no CVA tenderness Extremity full ROM Neuro CN's II-XII intact bilaterally, moves all extremities, no sensory deficits noted and gait normal Sensorium / Orientation: alert Motor Exam: strength 5/5 throughout Psych mental status grossly normal and thought process normal Skin no wounds General Skin Exam: Negative for jaundice Lesions: no lesions Rashes: no rashes Discharge Plan Triage Chief Complaint: Constipation ED Midlevel Provider: Tari Galan Dx/Rx/DC Orders Prescriptions: No Action nitrofurantoin monohyd/m-cryst [Macrobid] 100 mg capsule 100 mg PO BID Qty: 20 0RF Rx Instructions: must administer with a meal/food amlodipine 10 MG tablet 10 mg PO DAILY Primary Care Provider: Germán Mary Referrals: Germán Mary DO [Primary Care Provider] -
[2022-09-09 13:43] LABS: Anion Gap 7 (5-15); BUN 11 mg/dL (7-18); Calcium,Total 8.9 mg/dL (8.5-10.1); Chloride 108 mmol/L (98-107); Creatinine, Serum 0.92 mg/dL (0.55-1.02); EST Glomerular Filtration Rate 64 mL/min (>60); Est Glom Filt Rate - Afr Amer 78 mL/min (>60); Glucose 121 mg/dL (74-106); Potassium 3.6 mmol/L (3.5-5.1); Sodium Level 142 mmol/L (136-145)
--- NOTE | 2022-09-09 14:00 | RAD_ITS ---
STUDY: X-RAY - ACUTE ABDOMINAL SERIES REASON FOR EXAM: Female, 67 years old. Pain TECHNIQUE: Single view of the chest. Supine, and erect view(s) of the abdomen were obtained. 4 total views COMPARISON: None. FINDINGS: The lungs are clear and expanded. Normal size heart. Normal mediastinum and [place]. Normal visualized pulmonary arteries. Normal visualized aortic arch and descending thoracic aorta. Nondistended air-fluid levels noted on the upright film consistent with ileus. The soft tissue structures of the abdomen and pelvis are unremarkable. Normal visualized osseous structures. RAD/Acute Abdomen Inc Chest IMPRESSION: Small bowel ileus Electronically Signed: Leno Beckford MD at 14:17 EST ,
[2022-09-09 14:23] LABS: Absolute Lymphocyte Count 0.69 X10^3/uL (0.83-4.51); Absolute Neutrophil Count 7.4 X10^3/uL (2.0-7.7); Basophil# 0.04 X10^3/uL; Basophil% 0.5 % (0-1); Eosinophil# 0.08 X10^3/uL; Eosinophils% 0.9 % (0-5); Hematocrit 32.2 % (37-47); Hemoglobin 10.1 g/dL (12.0-15.0); Lymphocyte # 0.69 X10^3/ul (0.83-4.51); Mean Corp Hgb Conc 31.4 g/dL (32-36); Mean Corpuscular Hgb 24.3 pg (27.0-32.0); Mean Corpuscular Volume 77.6 fL (81-99); Mean Platelet Vol. 9.3 fl (6.2-12.0); Monocyte# 0.38 X10^3/uL; Monocyte% 4.4 % (0-10); NRBC Flagged by Analyzer 0 % (0-5); Neutrophil # 7.42 X10^3/uL (2.7-7.7); Neutrophil % 85.6 % (47-70); Platelet Count 190 K/mm3 (150-450); RBC Distribution Width CV 13.7 % (11.6-14.6); RBC Distribution Width SD 38.8 fl (35.1-43.9); Red Blood Count 4.15 M/mm3 (4.2-5.4); White Blood Count 8.7 K/mm3 (4.4-11.0)
[2022-09-09] MEDS: Electrolyte Solution/Peg's 4000 ML 2000 ML PO (15:44)
--- NOTE | 2022-09-09 16:29 | EX.ED.DYSGE1 ---
HPI <CLIFF Brown - Last Filed: 09/09/22 21:46> History of Present Illness Chief Complaint: Constipation Narrative Narrative: Patient presents with her sister due to not having a bowel movement since last after receiving a chemo treatment. She is receiving chemotherapy for metastatic breast cancer and states she normally gets constipated with her chemo treatments. She states she has taken four MiraLAX treatments between yesterday and today. Her sister, who is a nurse, attempted to give her a saline enema and was able to pass a little bit of stool. She denies any black tarry stools or any blood in the stool. Her sister then tried to digitally disimpact her but was unable to due to the patient feeling like she was going to pass out and being uncomfortable. The patient then decided to come here for treatment. Patient states her recent PET scan and MRI within the last few weeks did not show any spread of the cancer to her GI tract. She states she is very sedentary and drinks very little water. She denies abdominal pain, vomiting, nausea, and fever. She is able to tolerate food and liquids. PFSH <CLIFF Brown - Last Filed: 09/09/22 21:46> [facility] Home Medications amlodipine 10 mg tablet 10 mg PO DAILY 08/05/20 [History Last Taken 08/05/20] nitrofurantoin monohydrate/macrocrystals 100 mg capsule (Macrobid) 100 mg PO BID #20 caps 08/09/21 [Rx Last Taken Unknown] Allergy/AdvReac Type Severity Reaction Status Date / Time No Known Allergies Allergy Verified 09/09/22 12:39 Social History Smoking Status: Never smoker ROS <CLIFF Brown - Last Filed: 09/09/22 21:46> ROS ED Constitutional Constitutional ED: Denies chills, fever(s) or sweats Eyes Eyes: Denies change in vision ENT ENT ED: Denies rhinorrhea or sore throat Cardiovascular Cardiovascular: Denies chest pain Respiratory/Chest Respiratory/Chest: Denies cough or dyspnea Gastrointestinal Gastrointestinal: Reports constipation; Denies abdominal pain, diarrhea, hematochezia, melena, nausea or vomiting Genitourinary Genitourinary ED: Denies dysuria or hematuria Musculoskeletal Musculoskeletal: Denies myalgias Integumentary Denies Abrasions or rash Neurologic Neurologic: Denies headache(s) or weakness Psychiatric Psychiatric: Denies anxiety EXAM <CLIFF Brown - Last Filed: 09/09/22 21:46> Physical Exam Const Vital Signs: 09/09/22 12:39 Temperature 98.1 F Temperature Source Temporal Pulse Rate 101 H Respiratory Rate 18 Blood Pressure 107/72 Blood Pressure Mean 83 Pulse Ox 100 Oxygen Delivery Method Room Air Positive well nourished HEENT Reports moist mucous membranes Eyes PERRL and EOMs intact bilaterally Neck supple Resp normal respiratory effort and clear to auscultation bilaterally Cardio regular rate, regular rhythm and no murmurs GI non-tender, non-distended and no masses; Negative for hepatosplenomegaly Auscultation: hypoactive bowel sounds Palpation: Negative for tender or guarding Narrative: Rectal examination performed. External exam normal. hard stool was felt distally. Digital disimpaction unable to be performed due to discomfort of patient. Extremity normal to inspection Neuro oriented x3, CN's II-XII intact bilaterally and no sensory deficits noted Sensorium / Orientation: alert Motor Exam: strength 5/5 throughout Psych mental status grossly normal Skin no rashes or lesions noted, no wounds and skin turgor normal <Dr. Eriberto Garcia DO - Last Filed: 09/10/22 07:13> Physical Exam Const Vital Signs: 09/09/22 12:39 Temperature 98.1 F Temperature Source Temporal Pulse Rate 101 H Respiratory Rate 18 Blood Pressure 107/72 Blood Pressure Mean 83 Pulse Ox 100 Oxygen Delivery Method Room Air MDM <CLIFF Brown - Last Filed: 09/09/22 21:46> [facility] Narrative Medical decision making narrative: Patient was incredibly uncomfortable during rectal examination and stated she did not want a soap suds enema or manual disimpaction here in the ED. Patient wanted to be sent home with Anuel. She was stable I felt comfortable discharging her home with treatment and close follow up with her oncologist. Lab Data Attestation: I reviewed the patient's lab results. Labs: Laboratory Results - last 24 hr 09/09/22 09/09/22 13:25 14:15 WBC 8.7 RBC 4.15 L Hgb 10.1 L Hct 32.2 L MCV 77.6 L MCH 24.3 L MCHC 31.4 L RDW Std Deviation 38.8 RDW Coeff of Jose 13.7 Plt Count 190 MPV 9.3 Immature Gran % (Auto) 0.600 Neut % (Auto) 85.6 H Lymph % (Auto) 8.0 L Thurston % (Auto) 4.4 Eos % (Auto) 0.9 Baso % (Auto) 0.5 Absolute Neuts (auto) 7.4 Absolute Lymphs (auto) 0.69 L Nucleated RBC % 0 Sodium 142 Potassium 3.6 Chloride 108 H Carbon Dioxide 27.0 Anion Gap 7 BUN 11 Creatinine 0.92 Estim Creat Clear Calc 52.90 Est GFR (MDRD) Af Amer 78 Est GFR (MDRD) Non-Af 64 BUN/Creatinine Ratio 12.0 Glucose 121 H Calcium 8.9 Microcytic anemia. Elevated neutrophils. <Dr. Eriberto Garcia, DO - Last Filed: 09/10/22 07:13> [facility] Lab Data Labs: Laboratory Results - last 24 hr 09/09/22 09/09/22 13:25 14:15 WBC 8.7 RBC 4.15 L Hgb 10.1 L Hct 32.2 L MCV 77.6 L MCH 24.3 L MCHC 31.4 L RDW Std Deviation 38.8 RDW Coeff of Jose 13.7 Plt Count 190 MPV 9.3 Immature Gran % (Auto) 0.600 Neut % (Auto) 85.6 H Lymph % (Auto) 8.0 L [place] % (Auto) 4.4 Eos % (Auto) 0.9 Baso % (Auto) 0.5 Absolute Neuts (auto) 7.4 Absolute Lymphs (auto) 0.69 L Nucleated RBC % 0 Sodium 142 Potassium 3.6 Chloride 108 H Carbon Dioxide 27.0 Anion Gap 7 BUN 11 Creatinine 0.92 Estim Creat Clear Calc 52.90 Est GFR (MDRD) Af Amer 78 Est GFR (MDRD) Non-Af 64 BUN/Creatinine Ratio 12.0 Glucose 121 H Calcium 8.9 Treatment and Re-Evaluation Narrative: This patient was seen with a PA/[employer] Individually assessed they patient including history and physical. I have reviewed everything on the chart that is available and agree with the documentation provided by the PA/[employer] including discussion about the assessment, treatment plan, discussion, and return precautions. Patient with constipation for several days after chemotherapy which is something that typically happens for her. Her abdomen soft and nondistended. I obtained an x-ray of the abdomen which on my interpretation shows no obstructive pattern. Patient feels impacted but there is no stool in the rectum to be disimpacted. Patient was given IV fluids because she felt she might be dehydrated. Blood work is unremarkable. She will be given GoLytely for home. Return precautions discussed. Discharge Plan Triage Chief Complaint: Constipation ED Midlevel Provider: Tari Galan ED Provider: Eriberto Garcia Dx/Rx/DC Orders Clinical Impression: Fecal impaction Instructions: ED Constipation (Adult) Prescriptions: No Action nitrofurantoin monohyd/m-cryst [Macrobid] 100 mg capsule 100 mg PO BID Qty: 20 0RF Rx Instructions: must administer with a meal/food amlodipine 10 MG tablet 10 mg PO DAILY Primary Care Provider: Germán Mary Referrals: Germán Mary DO [Primary Care Provider] - 3-5 Days if not improving Disposition Disposition: Home, Self Care Discharge Date/Time: 09/09/22 15:45
== END 2022-09-09 15:45 | disposition home or self-care (01) ==
PROVIDERS: Physician Assistant; Emergency Provider Student in an Organized Health Care Education/Training Program; PCP Internal Medicine Hematology & Oncology; Visit Provider Student in an Organized Health Care Education/Training Program
DX: K56.41 Fecal impaction (principal)
CPT/HCPCS: 74022; 80048; 85025; 99284; A4216

== ENCOUNTER → 2022-12-28 | Outpatient (CLI) | payer MEDICARE, OTHER, SELFPAY ==
[2022-12-28 14:34] LABS: Bacteria 0 SEEN /hpf (None Seen); Mucous, Urine 0 SEEN /hpf (<or=2+)
[2022-12-28 14:43] LABS: Color, Urine Yellow (Yellow); Glucose, Dipstick Normal (Normal); Ketone-Dipstick Negative (Negative); Leukocyte Esterase-Dipstick 500 /ul (Negative); Nitrite-Dipstick Negative (Negative); Occult Blood-Urine 150 /ul (Negative); Protein-Dipstick 30 mg/dl (Negative); Urine Bilirubin Dipstick Negative (Negative); Urine Clarity Sl. Cloudy (Clear); Urine Urobilinogen Normal (Normal); Urine pH 6.5 (5.0 - 8.0)
[2022-12-28 15:10] LABS: Red Blood Cells-Urine 0-5 SEEN /hpf (0-5); Squamous Epithelial Cells - UA 0-5 SEEN /hpf (5-10); White Blood Cells 50-100 SEEN /hpf (0-5)
== END | disposition home or self-care (01) ==
LOC: LABSPEC 14:26
PROVIDERS: PCP Internal Medicine Hematology & Oncology; Visit Provider Physician Assistant
DX: R30.0 Dysuria (principal)
CPT/HCPCS: 81001; 87086; 87088; 87186

== ENCOUNTER → 2023-04-12 | Outpatient (CLI) | payer MEDICARE, OTHER, SELFPAY ==
[2023-04-12] MEDS: Pentamidine Isethionate 300 MG, Water For Injection,Sterile 6 ML INHALATION (13:20)
[2023-04-12 13:21] VITALS: PULSE 88; RESP 16
== END | disposition home or self-care (01) ==
LOC: PSN 12:47
PROVIDERS: Referring Provider Internal Medicine Hematology & Oncology; Visit Provider Internal Medicine Hematology & Oncology
DX: J18.9 Pneumonia, unspecified organism (principal)
CPT/HCPCS: 94642

== ENCOUNTER → 2023-05-10 | Outpatient (CLI) | payer MEDICARE, OTHER, SELFPAY ==
[2023-05-10] MEDS: Pentamidine Isethionate 300 MG, Water For Injection,Sterile 6 ML INHALATION (13:02)
--- NOTE | 2023-05-10 13:25 | CPS ---
Patient felt SOB after treatment. Breath sounds have expiratory wheezing. Patient states that she does have Asthma. Took rescue inhaler medication and patient is feeling better. Patient states this did not happen with last treatment. Patient feels better, breath sounds improved, SpO2 95%.
== END | disposition home or self-care (01) ==
PROVIDERS: Referring Provider Internal Medicine Hematology & Oncology; Visit Provider Internal Medicine Hematology & Oncology
DX: J18.9 Pneumonia, unspecified organism (principal)
CPT/HCPCS: 94642

== ENCOUNTER → 2023-06-02 | Outpatient (CLI) | payer MEDICARE, OTHER, SELFPAY ==
[2023-06-02 12:36] LABS: Mucous, Urine 0 SEEN /hpf (<or=2+)
[2023-06-02 12:46] LABS: Color, Urine Yellow (Yellow); Glucose, Dipstick Normal (Normal); Ketone-Dipstick Negative (Negative); Leukocyte Esterase-Dipstick 500 /ul (Negative); Nitrite-Dipstick Negative (Negative); Occult Blood-Urine 250 /ul (Negative); Protein-Dipstick 30 mg/dl (Negative); Urine Bilirubin Dipstick Negative (Negative); Urine Clarity Cloudy (Clear); Urine Urobilinogen Normal (Normal)
[2023-06-02 12:54] LABS: Squamous Epithelial Cells - UA 0-5 SEEN /hpf (5-10); White Blood Cells >100 SEEN /hpf (0-5)
[2023-06-02 12:55] LABS: Bacteria 1+ /hpf (None Seen); Red Blood Cells-Urine 50-100 SEEN /hpf (0-5)
== END | disposition home or self-care (01) ==
LOC: LABSPEC 12:18
PROVIDERS: Referring Provider Physician Assistant Surgical; Visit Provider Physician Assistant Surgical
DX: R30.0 Dysuria (principal)
CPT/HCPCS: 81001; 87086; 87088; 87186

== ENCOUNTER → 2023-06-14 | Outpatient (CLI) | payer MEDICARE, OTHER, SELFPAY | END | disposition home or self-care (01) | LOC: LABSPEC 06-15 08:41 | PROVIDERS: Visit Provider Physician Assistant | DX: Z00.00 Encounter for general adult medical examination without abnormal findings (principal) ==

== ENCOUNTER → 2023-06-14 | Outpatient (CLI) | payer MEDICARE, OTHER, SELFPAY | END | disposition home or self-care (01) | LOC: LABSPEC 06-23 11:47 | PROVIDERS: Referring Provider Internal Medicine Hematology & Oncology; Visit Provider Internal Medicine Hematology & Oncology | DX: R30.0 Dysuria (principal) | CPT/HCPCS: 87086; 87088; 87186 ==

== ENCOUNTER → 2023-07-06 | Outpatient (CLI) | payer MEDICARE, OTHER, SELFPAY | END | disposition home or self-care (01) | LOC: LABSPEC 12:46 | PROVIDERS: Referring Provider Physician Assistant; Visit Provider Physician Assistant | DX: R30.0 Dysuria (principal) | CPT/HCPCS: 87086; 87088; 87186 ==

== ENCOUNTER → 2023-08-17 | Outpatient (CLI) | payer MEDICARE, OTHER, SELFPAY ==
[2023-08-17 10:46] LABS: Mucous, Urine 0 SEEN /hpf (<or=2+)
[2023-08-17 10:55] LABS: Color, Urine Yellow (Yellow); Glucose, Dipstick Normal (Normal); Ketone-Dipstick Negative (Negative); Leukocyte Esterase-Dipstick 500 /ul (Negative); Nitrite-Dipstick Negative (Negative); Occult Blood-Urine 250 /ul (Negative); Protein-Dipstick 100 mg/dl (Negative); Urine Bilirubin Dipstick Negative (Negative); Urine Clarity Cloudy (Clear); Urine Urobilinogen Normal (Normal)
[2023-08-17 11:04] LABS: Bacteria 1+ /hpf (None Seen); Red Blood Cells-Urine 25-50 SEEN /hpf (0-5); White Blood Cells 25-50 SEEN /hpf (0-5)
[2023-08-17 11:05] LABS: Squamous Epithelial Cells - UA 0-5 SEEN /hpf (5-10)
== END | disposition home or self-care (01) ==
LOC: LABSPEC 10:28
PROVIDERS: Visit Provider Physician Assistant Surgical
DX: D70.9 Neutropenia, unspecified (principal); R50.81 Fever presenting with conditions classified elsewhere; R35.0 Frequency of micturition
CPT/HCPCS: 81001; 87086; 87088; 87186

== ENCOUNTER 2023-11-28 04:56 | Inpatient (IN) | payer MEDICARE, OTHER, SELFPAY ==
[2023-11-28] VITALS (12 sets, daily range): BP systolic 102–146; BP diastolic 53–82; PULSE 87–120; RESP 18–24; TEMP 36.6–38.2; O2SAT 95–100; BMI 22.6; BMI 21.5
--- NOTE | 2023-11-28 05:14 | RAD_ITS ---
EXAM: XR CHEST, 2 VIEWS CLINICAL INDICATION: cough/fever TECHNIQUE: Frontal and lateral views of the chest. COMPARISON: September 09, 2022. FINDINGS: LUNGS AND PLEURAL SPACES: The lungs are well inflated without convincing infiltrate or effusion. Mild chronic interstitial changes and zones of subtle lucency. No pneumothorax. HEART: Unremarkable. Cardiac silhouette not enlarged. MEDIASTINUM: Small hiatal hernia is again noted, better seen on prior exam. BONES/JOINTS: Unremarkable. No acute fracture. SOFT TISSUES: Unremarkable. TUBES, LINES AND DEVICES: Stable right jugular Uvsmec-w-Tkur catheter, tip over the distal SVC. UPPER ABDOMEN: Mildly prominent bowel gas in the upper abdomen. RAD/Chest PA and Lateral IMPRESSION: Stable chest. Right jugular [id number] catheter. Small hiatal hernia. Mild chronic lung changes. Electronically Signed: Neha Garza MD at 6:42 EST ,
--- NOTE | 2023-11-28 05:14 | CT_ITS ---
EXAM: CT TEMPORAL BONES WITHOUT INTRAVENOUS CONTRAST CLINICAL INDICATION: R mastoid swelling, tenderness, including TECHNIQUE: Routine CT protocol was performed of the internal auditory canals and temporal bones without intravenous contrast. 2-D reformats were performed by the technologist. This CT exam was performed using one or more of the following dose reduction techniques: automated exposure control, adjustment of the mA and/or kV according to patient size, and/or use of iterative reconstruction technique. RADIATION DOSE: CTDIvol = 67.58 mGy, DLP = 679.61 mGy-cmContrast: COMPARISON: No relevant prior studies available. FINDINGS: RIGHT OSSICLES AND MIDDLE EAR: See below. RIGHT COCHLEA: Unremarkable. RIGHT VESTIBULE: Unremarkable. RIGHT SEMICIRCULAR CANALS: Unremarkable. RIGHT INTERNAL AUDITORY CANAL: Unremarkable. No osseous erosion or widening of the canal. RIGHT EXTERNAL AUDITORY CANAL: Well-aerated middle ears and external auditory canals. Well aerated mastoid antrums. RIGHT MASTOID AIR CELLS: There are several opacified right inferior mastoid air cell but most of the right mastoids are well aerated. No visible bone destruction. LEFT OSSICLES AND MIDDLE EAR: See above. LEFT COCHLEA: Unremarkable. LEFT VESTIBULE: Unremarkable. LEFT SEMICIRCULAR CANALS: Unremarkable. LEFT INTERNAL AUDITORY CANAL: Unremarkable. No osseous erosion or widening of the canal. LEFT EXTERNAL AUDITORY CANAL: See above. LEFT MASTOID AIR CELLS: Unremarkable. Well aerated. BONES/JOINTS: See above. SOFT TISSUES: Mild soft tissue swelling and subcutaneous soft tissue stranding posterior to the right ear. No suspicious fluid collections. SINUSES: Mild mucosal thickening in bilateral maxillary sinuses, slight mucosal thickening in ethmoid sinuses, slight fluid or mucosal thickening in left sphenoid sinus. ORBITS: Asymmetric globes, the right globe is larger and oblong, increased AP diameter, with nonvisualized right lens. BRAIN AND EXTRA-AXIAL SPACES: Unremarkable as visualized. No acute intracranial abnormality identified, the brain is partially included. CT/Orb Sella Post Fossa Ear w/o IMPRESSION: 1. Soft tissue swelling and increased mild subcutaneous soft tissue stranding posterior to the right ear. There are several small opacified mastoid air cells involving the right inferior mastoids. There is no visible bone destruction and most of the right mastoid air cells are well aerated. 2. Minimal chronic paranasal sinusitis. 3. Asymmetric globes, with abnormal-appearing enlarged right globe and nonvisualized lens. Electronically Signed: Neha Garza MD at 6:53 EST ,
--- NOTE | 2023-11-28 05:15 | EDS_ITS ---
HPI History of Present Illness Chief Complaint: Fever Informant: patient and family Narrative Narrative: Patient has had several days of runny nose and nasal congestion, fatigue. She presents around 5 AM because this morning she developed a fever at home of 103, she felt like she may have a fever, she did not take anything but here she is 99 Fahrenheit. Over the past day or 2 she has had some pain in the right side of her neck as well as an earache. Family member accompanies her states that she burned herself there which is why it is painful, however the patient denies this, saying that she put a warm compress in the microwave and let it cool off before she put it on her neck, she did not feel sudden onset of hot/pain, states that it felt good initially, then started being sore later so she removed it. She denies any cough, dyspnea, nausea, vomiting, diarrhea, headaches, trouble with her hearing. She is currently getting chemotherapy for breast cancer and her last treatment was 4 days ago, it is common that 2-3 days after treatment she feels fatigued like she does now. [facility] Medical History Breast cancer COVID-19 Dysuria Home Medications amlodipine 10 mg tablet 10 mg PO DAILY 08/05/20 [History Last Taken 08/05/20] chemo IV 12/28/22 [History Last Taken Unknown] Allergy/AdvReac Type Severity Reaction Status Date / Time sulfamethoxazole Allergy Unknown Shortness Verified 11/28/23 05:04 [From Bactrim] of breath trimethoprim [From Bactrim] Allergy Unknown Shortness Verified 11/28/23 05:04 of breath pentamidine isethionate Allergy Shortness Verified 11/28/23 05:12 of breath Social History Smoking Status: Never smoker ROS ROS ED Constitutional Constitutional ED: Reports chills, fatigue and fever(s) Eyes Eyes: Denies change in vision or diplopia ENT ENT ED: Reports ear pain right, nasal congestion and rhinorrhea; Denies headache(s) or sore throat Cardiovascular Cardiovascular: Denies chest pain or palpitations Respiratory/Chest Respiratory/Chest: Denies cough or dyspnea Gastrointestinal Gastrointestinal: Denies abdominal pain, diarrhea, nausea or vomiting Genitourinary Genitourinary ED: Denies dysuria or hematuria Musculoskeletal Musculoskeletal: Denies back pain or neck pain Integumentary Reports rash; Denies abscess Neurologic Neurologic: Denies headache(s), paresthesias or weakness Psychiatric Psychiatric: Denies suicidal ideation or suicidal thoughts EXAM Physical Exam Const Vital Signs: 11/28/23 04:57 11/28/23 05:02 11/28/23 05:07 Temperature 99 F 99 F Temperature Source Oral Oral Pulse Rate 116 H 109 H Respiratory Rate 22 H 20 H Respiratory Effort Normal Non-Labored Respiratory Pattern Normal Blood Pressure 146/70 H 146/70 H Blood Pressure Mean 95 95 Pulse Ox 96 96 Oxygen Delivery Method Room Air Room Air Oxygen Flow Rate (L/min) 11/28/23 05:39 11/28/23 05:47 11/28/23 07:00 Temperature 100.1 F H 99.6 F H Temperature Source Oral Oral Pulse Rate 120 H 98 Respiratory Rate 24 H 20 H Respiratory Effort Respiratory Pattern Blood Pressure 140/64 H 106/57 L Blood Pressure Mean 89 73 Pulse Ox 100 97 Oxygen Delivery Method Room Air Room Air Nasal Cannula Oxygen Flow Rate (L/min) 2 11/28/23 07:14 11/28/23 08:00 Temperature 98.9 F Temperature Source Temporal Pulse Rate 98 94 Respiratory Rate 20 H 20 H Respiratory Effort Respiratory Pattern Blood Pressure 106/57 L 102/58 L Blood Pressure Mean 73 72 Pulse Ox 98 95 Oxygen Delivery Method Nasal Cannula Room Air Oxygen Flow Rate (L/min) Positive well nourished and well developed General Appearance ED: well developed and NAD HEENT Reports TM's clear and moist mucous membranes HEENT Narrative: No pain with manipulation of the pinna or the tragus. EAC normal bilaterally as are the TMs. No otorrhea. No signs of facial/periorbital erythema/cellu litis. normocephalic and atraumatic Tympanic Membrane ED: Yes TM's clear Eyes PERRL and EOMs intact bilaterally Neck full ROM, no lymphadenopathy and supple Neck Narrative: Splotchy erythema that is very tender but without induration on the right side of the neck, this extends up to the periauricular area but is worst at the mastoid process where she is also tender and a little swollen. It is not boggy, there is no abscess. Patient has a med port in her right upper chest, none of the palpable or visible portions of the med port where it tunnels up into the neck have overlying erythema. Chest Wall inspection of chest normal and palpation of chest normal Resp normal respiratory effort and clear to auscultation bilaterally Cardio regular rate, regular rhythm and no murmurs Rate: tachycardic GI non-tender and non-distended Auscultation: normoactive bowel sounds Palpation: soft Back/Spine no CVA tenderness General Back: other FROM Extremity normal to inspection General Extremety ED: Negative for edema, pulses abnormal or tenderness General Extremity: Negative for edema or pulses abnormal Neuro oriented x3, CN's II-XII intact bilaterally and no sensory deficits noted Sensorium / Orientation: awake and alert Motor Exam: general weakness Psych mental status grossly normal Skin no wounds Skin Narrative: Tender warm erythema right neck extending to the right mastoid process. No bullae or petechia. No breaks in the skin. No other rashes. MDM MDM MDM Narrative Medical decision making narrative: Concern is that the patient has cellulitis in her neck and possibly mastoiditis. Her ear does not appear to be infected in the middle ear fossa. I am working her up for other sources of fever such as COVID, influenza, RSV, pneumonia, urine infection, but while working her up I am treating her empirically with IV Zosyn for the cellulitis. I do not think this looks like a burn. Given her immunocompromise state a septic workup is obtained including blood cultures prior to giving antibiotics. The workup shows a significant leukocytosis but she received Neulasta 2-3 days ago. The predilection of neutrophils is consistent with it being caused by the Neulasta. Her lactate is 1.2 arguing against sepsis. Also consistent with this, the patient looks great creatinine clinically, and her vital signs are normal after we treated the temperature that she developed of 100.1 here, now 102/58, heart rate 94, temp 98.9. Out of concern for possibility of development of mastoiditis, I performed a temporal bone CT scan. It shows that there are a few mastoid air cells that have some fluid in them but the majority of it is aerated without any signs of bone destruction. Her ear looks good clinically. Her urine appears to show infection. She does not have any urinary symptoms. The significance of the urinalysis findings is unknown at this time. A culture is sent. Again given her immunocompromised state I am going to cover her for this despite her lack of symptoms, and if cultures come back, her antibiotic coverage can be narrowed. I discussed all this with Dr. Eubanks who is on for oncology, covering for Dr. Mary. He states that the leukocytosis is likely due to the Neulasta, and he supports discharging the patient home, which is what the patient prefers when I asked her. I am going to put her on Augmentin, which should cover the mild mastoid involvement and cellulitis, as well as doxycycline since she has a sulfa allergy, which will also potentially provide dual coverage for the urine and cellulitis, and may also provide MRSA coverage which is thought to be less likely an issue here. However --prior to discharging the patient, it was noticed that her pulse ox dropped to 88%. This was was a good waveform. She was put on nasal cannula and was in the mid to high 90s. She denies any symptoms of dyspnea, chest discomfort, cough. Her lungs are clear, she is not tachycardic, her chest x-ray is normal. We took her off of oxygen later, and she went down to 88% and stayed there without symptoms. Concerned about this, she less likely to have a PE without tachycardia at rest here, however she certainly is at risk for that given her metastatic cancer. She is on no home oxygen. Plan will be for admission, we will order CTA and I discussed with hospitalist to coordinate all of this. Lab Data Attestation: I reviewed the patient's lab results. Labs: Laboratory Results - last 24 hr 11/28/23 11/28/23 05:25 05:40 WBC 55.2 H* RBC 3.73 L Hgb 10.0 L Hct 32.2 L MCV 86.3 MCH 26.8 L MCHC 31.1 L RDW Std Deviation 61.8 H RDW Coeff of Jose 19.9 H Plt Count 294 MPV 9.6 Immature Gran % (Auto) 3.600 H Neut % (Auto) 93.0 H Lymph % (Auto) 1.5 L Jack % (Auto) 1.7 Eos % (Auto) 0.1 Baso % (Auto) 0.1 Absolute Neuts (auto) 51.4 H Absolute Lymphs (auto) 0.84 Nucleated RBC % 0 Differential Comment SCANNED Diff Path Review May foll PT 13.7 INR 1.1 APTT 31.7 Sodium 136 Potassium 3.4 L Chloride 106 Carbon Dioxide 27.0 Anion Gap 3 L BUN 13 Creatinine 1.11 H Estim Creat Clear Calc 42.44 Est GFR (MDRD) Af Amer 62 Est GFR (MDRD) Non-Af 52 L BUN/Creatinine Ratio 11.7 Glucose 139 H Lactic Acid 1.2 Calcium 8.8 Total Bilirubin 0.40 AST 20 ALT 23 Alkaline Phosphatase 272 H Total Protein 6.2 L Albumin 2.7 L Globulin 3.5 Albumin/Globulin Ratio 0.8 L Urine Color Yellow Urine Clarity Clear Urine pH 8.0 Ur Specific [place] 1.015 Urine Protein 30 H Urine Glucose (UA) Normal Urine Ketones Negative Urine Occult Blood 10 H Urine Nitrite Negative Urine Bilirubin Negative Urine Urobilinogen Normal Ur Leukocyte Esterase 500 H Urine RBC 0-5 SEEN Urine WBC 25-50 SEEN Ur Squamous Epith Cells 0-5 SEEN Urine Bacteria 1+ Urine Mucus 0 SEEN Radiography Diagnostic Testing: Clinical Impression(s) from Imaging Studies CT Orbit Sella Inner 11/28/23 05:14 IMPRESSION: 1. Soft tissue swelling and increased mild subcutaneous soft tissue stranding posterior to the right ear. There are several small opacified mastoid air cells involving the right inferior mastoids. There is no visible bone destruction and most of the right mastoid air cells are well aerated. 2. Minimal chronic paranasal sinusitis. 3. Asymmetric globes, with abnormal-appearing enlarged right globe and nonvisualized lens. Electronically Signed: Neha Garza MD at 6:53 EST Reading Location ID and State: [facility] / [place] Tel , Service support , Chest X-Ray 11/28/23 05:14 IMPRESSION: Stable chest. Right jugular Uditac-d-Exoe catheter. Small hiatal hernia. Mild chronic lung changes. Electronically Signed: Neha Garza MD at 6:42 EST , I reviewed the CT images and the result and I agree with it. 1 view chest x-ray on my interpretation shows no acute pneumonia. Rhythm Strip Rhythm Strip: Sinus Tach Rate: 106 Ectopy: None EKG Initial EKG: Attestation: I personally reviewed and interpreted this EKG as follows: Interpretation: No Acute Injury Pattern and Sinus Tachycardia Management Discussion w/another healthcare provider: Hospitalist and Software Development Engineer (oncology dr. elizondo) Discharge Plan Dx/Rx/DC Orders Clinical Impression: Cellulitis of multiple sites of head and neck, Metastatic breast cancer, UTI (urinary tract infection), Acute mastoiditis of right side without complications, Hypoxemia, Immunocompromised state due to drug therapy Disposition Disposition: Acute Care Hospital [facility]
[2023-11-28] MEDS: 0.9% Normal Saline (1000mL) 1,000 ML 150 ML IV (05:34)
--- NOTE | 2023-11-28 05:34 | NURSING ---
Blood Cx Drawn and sent.
[2023-11-28] MEDS: Piperacil/Tazobactam 3.375 GM in 0.9% Normal Saline (50mL MB+) 50 ML IV (05:36)
[2023-11-28 05:57] LABS: Absolute Lymphocyte Count 0.84 X10^3/uL (0.83-4.51); Absolute Neutrophil Count 51.4 X10^3/uL (2.0-7.7); Basophil# 0.05 X10^3/uL; Basophil% 0.1 % (0-1); Eosinophil# 0.05 X10^3/uL; Eosinophils% 0.1 % (0-5); Hematocrit 32.2 % (37-47); Lymphocyte # 0.84 X10^3/ul (0.83-4.51); Lymphocyte % 1.5 % (19-41); Mean Corp Hgb Conc 31.1 g/dL (32-36); Mean Corpuscular Hgb 26.8 pg (27.0-32.0); Mean Corpuscular Volume 86.3 fL (81-99); Mean Platelet Vol. 9.6 fl (6.2-12.0); Monocyte# 0.92 X10^3/uL; Monocyte% 1.7 % (0-10); NRBC Flagged by Analyzer 0 % (0-5); Neutrophil # 51.37 X10^3/uL (2.7-7.7); POSITIVE COUNT YES; POSITIVE DIFFERENTIAL YES; POSITIVE MORPHOLOGY YES; Platelet Count 294 K/mm3 (150-450); RBC Distribution Width CV 19.9 % (11.6-14.6); RBC Distribution Width SD 61.8 fl (35.1-43.9); Red Blood Count 3.73 M/mm3 (4.2-5.4)
[2023-11-28 05:58] LABS: Mucous, Urine 0 SEEN /hpf (<or=2+)
[2023-11-28 06:12] LABS: Lactic Acid 1.2 mmol/L (0.4-1.9)
[2023-11-28 06:15] LABS: ALB/GLOB Ratio 0.8 RATIO (0.9-2.4); AST(SGOT) 20 U/L (15-37); Alanine Aminotransfer ALT/SGPT 23 U/L (13-56); Albumin, Serum 2.7 g/dL (3.2-5.0); Alkaline Phosphatase 272 U/L (45-117); Anion Gap 3 (5-15); BUN 13 mg/dL (7-18); BUN/Creat Ratio 11.7 RATIO (10-20); Calcium,Total 8.8 mg/dL (8.5-10.1); Chloride 106 mmol/L (98-107); Creatinine, Serum 1.11 mg/dL (0.55-1.02); EST Glomerular Filtration Rate 52 mL/min (>60); Est Glom Filt Rate - Afr Amer 62 mL/min (>60); Estimated Creatinine Clearance 42.44 ml/min; Globulin 3.5 g/dL (2.2-4.2); Glucose 139 mg/dL (74-106); Potassium 3.4 mmol/L (3.5-5.1); Protein, Total 6.2 g/dL (6.4-8.2); Sodium Level 136 mmol/L (136-145)
[2023-11-28 06:18] LABS: International Normalized Ratio 1.1; Prothrombin Time (Protime)PT. 13.7 SECONDS (11.7-14.9)
[2023-11-28 06:19] LABS: Partial Thromboplast Time 31.7 Seconds (24.1-36.2)
[2023-11-28 06:20] LABS: Differential Indicated SCAN CRITERIA MET; White Blood Count 55.2 K/mm3 (4.4-11.0)
[2023-11-28] MEDS: Acetaminophen 500 MG Tablet 1000 MG PO (06:24)
[2023-11-28 06:27] LABS: Color, Urine Yellow (Yellow); Glucose, Dipstick Normal (Normal); Ketone-Dipstick Negative (Negative); Leukocyte Esterase-Dipstick 500 /ul (Negative); Nitrite-Dipstick Negative (Negative); Occult Blood-Urine 10 /ul (Negative); Protein-Dipstick 30 mg/dl (Negative); Specific Gravity, Urine 1.015 (1.002-1.030); Urine Bilirubin Dipstick Negative (Negative); Urine Clarity Clear (Clear); Urine Urobilinogen Normal (Normal)
--- NOTE | 2023-11-28 07:13 | ED.RN ---
PT O2 SAT READING AT 87-88 WITH GOOD WAVE FORM. O2 APPLIED AT 2 LITERS PER NASAL CANNULA. AFTER TIME P.O. UP TO 97
[2023-11-28 07:19] LABS: Bacteria 1+ /hpf (None Seen); Red Blood Cells-Urine 0-5 SEEN /hpf (0-5); Squamous Epithelial Cells - UA 0-5 SEEN /hpf (5-10); White Blood Cells 25-50 SEEN /hpf (0-5)
--- NOTE | 2023-11-28 08:31 | CT_ITS ---
STUDY: CTA CHEST REASON FOR EXAM: Female, 68 years old. Hypoxemia RADIATION DOSAGE (If Supplied By Facility): CTDIvol = ( 9.96 ) mGy, DLP = ( 172.49 ) mGycm TECHNIQUE: The examination was performed with the intravenous administration of IV 100mL Isovue-370. Post-processing of the angiographic images was performed, with multiplanar reformation and 3D reconstruction. Individualized dose optimization techniques were used for this CT. COMPARISON: None. FINDINGS: A right-sided portacatheter is seen with the tip in the right atrium. Normal enhancement of the main pulmonary artery and right and left pulmonary arteries. Normal enhancement of the bilateral peripheral pulmonary arteries. There is no demonstrated pulmonary embolism. Normal thoracic aorta and visualized great vessels. There is no demonstrated aortic dissection. Normal heart and pericardium. Normal mediastinum. Normal hilar regions. Normal visualized trachea and bronchi. The lungs are well expanded. There is a 3.7 mm noncalcified nodule in the anterior aspect of the right lung apex as seen on axial image #208 and coronal image #128. Mild increased markings at the lung bases suggestive of underlying atelectasis and/or scarring. Normal pleura. Normal chest wall structures. There are degenerative changes of thoracic spine. Large hiatal hernia. Splenomegaly. CT/CTA Chest W/WO Contrast IMPRESSION: No evidence of bone embolism. 3.7 mm noncalcified nodule in the anterior aspect of the right lung apex as described. 6 month follow-up examination recommended. Large hiatal hernia. Splenomegaly. Electronically Signed: Uche Villasenor MD at 9:46 EST ,
[2023-11-28 08:35] LABS: Differential Comment SCANNED
--- NOTE | 2023-11-28 08:56 | PCM.HP.STD ---
HPI - General General Date of Admission: 11/28/23 Date of Service: 11/28/23 Chief Complaint: Right-sided neck and mastoid process pain, fevers, mild hypoxia HPI Narrative TARYN TAYLOR, is a 68 F who presented to [facility] ED on 11/28/2023 with worsening pain and redness of right side of neck and mastoid process and subjective fevers. Patient seen at bedside in the ED, sister present. Patient was sitting up comfortably in bed, conversing normally, no acute distress. Patient has history of metastatic breast cancer currently being treated with hormone therapy as noted below. Patient lives with her sister, who is a retired nurse. Patient is able to do most things around the house for self without issue at baseline. Patient states that she developed sinus congestion with drainage and a sore throat about 1 week ago. She noted this to Dr. Mary at her oncology appointment on 11/23, and per Dr. Mary's note patient had mild symptoms at that time. Was treating with symptomatic management and feeling fine until yesterday. At that time, states that she developed worsening right-sided neck pain with new onset erythema. Sister checked patient's temperature yesterday and noted that it was 102F. Remained elevated on recheck this morning, so they made decision to come in for further evaluation. Patient states she feels subjectively improved since receiving IV fluids and a dose of Tylenol in the ED. Given significant erythema noted on right side of neck and into the mastoid process area, CT scan was done to evaluate for acute mastoiditis. CT showed soft tissue swelling and increased mild subcutaneous soft tissue stranding posterior to right ear along with small opacified mastoid air cells, but no evidence of visible bone obstruction noted. Patient was also found to have a WBC count of 55,000. ED physician discussed with oncology, who noted that the elevated white blood cell count is presumed secondary to Neulasta that was administered with hormone therapy on 11/24. Initial plan was to discharge the patient home on p.o. Augmentin, however patient was noted to have oxygen saturations that dropped below 88% on room air with exertion. CTA chest was ordered to rule out PE and determination was made to admit the patient for further evaluation. With regard to her cancer history, patient has history of metastatic breast cancer and follows with Dr. Mary, most recent office visit on 11/23/2023. Per that office note, patient was diagnosed with breast cancer back in 2020. Completed 2 chemotherapy regimens in 2021 and then was initiated on Enhertu (Fam-trastuzumab deruxtecan) in 08/2022. This medication was held in 12/2022 given concern for inflammatory lung disease secondary to this medication. Repeat CT scan in March was improved, patient was restarted on the medication. Has been following up every [address] scans and echocardiograms. [facility] Medical History Breast cancer COVID-19 Dysuria Home Medications amlodipine 10 mg tablet 10 mg PO DAILY 08/05/20 [History Last Taken 11/27/23] chemo IV .Q3week 12/28/22 [History Last Taken 11/24/23] omeprazole 10 mg capsule,delayed release 20 mg PO QODAY reflux 11/28/23 [History Last Taken 11/28/23 13:00] Allergy/AdvReac Type Severity Reaction Status Date / Time sulfamethoxazole Allergy Unknown Shortness Verified 11/28/23 05:04 [From Bactrim] of breath trimethoprim [From Bactrim] Allergy Unknown Shortness Verified 11/28/23 05:04 of breath pentamidine isethionate Allergy Shortness Verified 11/28/23 05:12 of breath Social History Smoking Status: Never smoker ROS Constitutional Constitutional: Reports chills, fatigue, fever(s) and malaise; Denies weakness Eyes Eyes: Denies change in vision ENT HEENT: Reports nasal congestion, nasal discharge, post nasal drip, sinus pressure and other Details: Right-sided neck and mastoid process pain noted. ; Denies abnormal hearing, dysphagia, ear pain, hearing loss or sore throat Cardiovascular Cardiovascular: Denies chest pain, dyspnea on exertion, edema, lightheadedness or orthopnea Respiratory/Chest Respiratory/Chest: Denies cough, shortness of breath at rest or wheezing Gastrointestinal Gastrointestinal: Denies abdominal pain, constipation, diarrhea, nausea or vomiting Genitourinary Genitourinary: Denies dysuria Musculoskeletal Musculoskeletal: Denies arthralgias, back pain or myalgias Neurologic Neurologic: Denies disequilibrium, dizziness, focal weakness, headache(s) or numbness Vital Signs Vital Signs Vital Signs: 11/28/23 04:57 11/28/23 05:02 11/28/23 05:07 Temperature 99 F 99 F Temperature Source Oral Oral Pulse Rate 116 H 109 H Respiratory Rate 22 H 20 H Respiratory Effort Normal Non-Labored Respiratory Pattern Normal Blood Pressure 146/70 H 146/70 H Blood Pressure Mean 95 95 Pulse Ox 96 96 Oxygen Delivery Method Room Air Room Air Oxygen Flow Rate (L/min) 11/28/23 05:39 11/28/23 05:47 11/28/23 07:00 Temperature 100.1 F H 99.6 F H Temperature Source Oral Oral Pulse Rate 120 H 98 Respiratory Rate 24 H 20 H Respiratory Effort Respiratory Pattern Blood Pressure 140/64 H 106/57 L Blood Pressure Mean 89 73 Pulse Ox 100 97 Oxygen Delivery Method Room Air Room Air Nasal Cannula Oxygen Flow Rate (L/min) 2 11/28/23 07:14 11/28/23 08:00 Temperature 98.9 F Temperature Source Temporal Pulse Rate 98 94 Respiratory Rate 20 H 20 H Respiratory Effort Respiratory Pattern Blood Pressure 106/57 L 102/58 L Blood Pressure Mean 73 72 Pulse Ox 98 95 Oxygen Delivery Method Nasal Cannula Room Air Oxygen Flow Rate (L/min) Weight Weight: 61.9 kg Body Mass Index (BMI) 22.6 Physical Exam Const alert, oriented x3, no apparent distress and average body habitus Constitutional Narrative: Pleasant elderly female, thin but not cachectic appearing, sitting up comfortably in bed, conversing normally, no acute distress. General Appearance: cooperative and comfortable HEENT normocephalic, head/scalp atraumatic, hearing grossly normal bilaterally, nasal mucous membranes and turbinates normal and moist oral mucous membranes HEENT Narrative: Significant right sided neck erythema noted from lower mandible up to the mastoid process, with mild to moderate tenderness to palpation. Eyes PERRL, EOMs intact bilaterally and conjunctivae normal Neck supple Neck Narrative: Right-sided neck lymphadenopathy noted. Resp Resp Narrative: Satting well on 2 L nasal cannula at rest, no increased work of breathing noted. Good air movement bilaterally, no crackles or wheezing noted. Cardio regular rate, regular rhythm, no murmurs and peripheral pulses 2+ throughout GI normal to inspection, nondistended, normoactive bowel sounds, soft to palpation, non-tender and non-distended Back/Spine normal ROM Extremity normal to inspection, full ROM and no pedal edema Neuro moves all extremities and no focal motor deficits Speech: speech normal Psych mental status grossly normal Results Lab / Micro Data 11/28/23 05:25 11/28/23 05:25 Labs: Laboratory Results - last 24 hr 11/28/23 05:25: WBC 55.2 H*, RBC 3.73 L, Hgb 10.0 L, Hct 32.2 L, MCV 86.3, MCH 26.8 L, MCHC 31.1 L, RDW Std Deviation 61.8 H, RDW Coeff of Jose 19.9 H, Plt Count 294, MPV 9.6, Immature Gran % (Auto) 3.600 H, Neut % (Auto) 93.0 H, Lymph % (Auto) 1.5 L, [place] % (Auto) 1.7, Eos % (Auto) 0.1, Baso % (Auto) 0.1, Absolute Neuts (auto) 51.4 H, Absolute Lymphs (auto) 0.84, Nucleated RBC % 0, Differential Comment SCANNED, Diff Path Review February, PT 13.7, INR 1.1, APTT 31.7, Sodium 136, Potassium 3.4 L, Chloride 106, Carbon Dioxide 27.0, Anion Gap 3 L, BUN 13, Creatinine 1.11 H, Estim Creat Clear Calc 42.44, Est GFR (MDRD) Af Amer 62, Est GFR (MDRD) Non-Af 52 L, BUN/Creatinine Ratio 11.7, Glucose 139 H, Lactic Acid 1.2, Calcium 8.8, Total Bilirubin 0.40, AST 20, ALT 23, Alkaline Phosphatase 272 H, Total Protein 6.2 L, Albumin 2.7 L, Globulin 3.5, Albumin/Globulin Ratio 0.8 L 11/28/23 05:40: Urine Color Yellow, Urine Clarity Clear, Urine pH 8.0, Ur Specific Mellen 1.015, Urine Protein 30 H, Urine Glucose (UA) Normal, Urine Ketones Negative, Urine Occult Blood 10 H, Urine Nitrite Negative, Urine Bilirubin Negative, Urine Urobilinogen Normal, Ur Leukocyte Esterase 500 H, Urine RBC 0-5 SEEN, Urine WBC 25-50 SEEN, Ur Squamous Epith Cells 0-5 SEEN, Urine Bacteria 1+, Urine Mucus 0 SEEN Micro: Microbiology 11/28/23 05:18 Mucosa - Nose SARS-CoV-2, Influenza & RSV (PCR) - Final Rhythm Strip Rhythm Strip: Sinus Tach Rate: 106 Ectopy: None Imaging Radiology Impression CT Orbit Sella Inner 11/28/23 05:14 IMPRESSION: 1. Soft tissue swelling and increased mild subcutaneous soft tissue stranding posterior to the right ear. There are several small opacified mastoid air cells involving the right inferior mastoids. There is no visible bone destruction and most of the right mastoid air cells are well aerated. 2. Minimal chronic paranasal sinusitis. 3. Asymmetric globes, with abnormal-appearing enlarged right globe and nonvisualized lens. Electronically Signed: Neha Garza MD at 6:53 EST Reading Location ID and State: [facility] / [place] Tel , Service support , Chest X-Ray 11/28/23 05:14 IMPRESSION: Stable chest. Right jugular Jadcan-g-Fzac catheter. Small hiatal hernia. Mild chronic lung changes. Electronically Signed: Neha Garza MD at 6:42 EST , Assessment & Plan Assessment/Plan (1) Hypoxemia: (2) Acute mastoiditis of right side without complications: (3) Cellulitis of multiple sites of head and neck: (4) UTI (urinary tract infection): (5) Immunocompromised state due to drug therapy: PLAN: Plan Patient is a 68-year-old female who presented to [facility] ED on 11/28/2023 with worsening right-sided neck pain and pain behind the ear as well as subjective fevers. 1. Mild hypoxia on exertion Oxygen saturations dropped to slightly below 88% on room air with exertion in ED. CTA chest showed no PE, well-expanded lungs, mild increased markings at lung bases suggestive of underlying atelectasis versus scarring. Mild URI recently, no symptoms of pneumonia including no cough with sputum production, no chest discomfort. ? Admit under observation status to PCU. Low concern for acute etiology of hypoxia, suspect patient may have mild degree of hypoxia at baseline. Incentive spirometry ordered. Wean supplemental oxygen as able. Will need home oxygen qualification test prior to discharge. 2. Acute right-sided neck cellulitis with mastoiditis CT on admit showed soft tissue swelling and increased mild subcutaneous soft tissue stranding posterior to right ear along with small opacified mastoid air cells, but no evidence of visible bone obstruction noted. Subjective fevers at home, no documented fever since admission. Severe leukocytosis likely secondary to Neulasta as noted below. Otherwise hemodynamically stable. ? Continue p.o. Augmentin for now with plan for 7-day course total. Monitor symptoms, symptomatic management as needed. 3. Severe leukocytosis ? WBC count 55,000 on admit. Discussed with oncology, presumed secondary to recent Neulasta administration on 11/24. Follow-up a.m. CBC tomorrow. 4. Mild creatinine elevation ? Creatinine 1.11 on admit, baseline creatinine appears to be around 0.7-0.9. Suspect mild dehydration secondary to acute infection as noted above. S/p IV fluids in the ED, encouraged p.o. intake. Follow-up a.m. BMP tomorrow. 5. Elevated alkaline phosphatase ? Alk phos 272 on admit, LFTs otherwise normal. Suspect this may be secondary to bone breakdown from treatment for cancer. Follow-up a.m. LFTs. 6. Concern for UTI ? UA on admit with 500 leukocyte esterase, negative nitrites, 1+ bacteria. Urine culture pending. Multiple previous urine culture results from 2022 grew pansensitive E. coli. Continue treatment with Augmentin as noted above. 7. Chronic anemia ? Hemoglobin 10.0 on admit, baseline hemoglobin 10-11. Iron studies 2/ show low iron and iron saturation with mildly elevated ferritin, most consistent with anemia of chronic disease. B12 and folate normal. Follow-up a.m. CBC. 8. Metastatic breast cancer ? Follows with Dr. Mary, currently on Enhertu hormone therapy every 3 months. See HPI for further details. Continue outpatient follow-up on discharge. 9. Mild debility ? Lives at home with sister, good functional status. Mild debility in setting of acute illness. PT/OT/case management consulted. 10. Lung nodule ? CT chest on admit showed 3.7 mm noncalcified nodule in anterior aspect of right lung apex. 6-month follow-up examination recommended. Chronic medical conditions: ? GERD: Continue home PPI. ? Hypertension: Holding home amlodipine. DVT prophylaxis: Lovenox CODE STATUS: Full code, verified Expected disposition: Home, 1 to 2 days Total clinical time spent by myself addressing the patient's medical issues, reviewing all the data, and collaborating with patient's care team: 55 minutes. Charges/Coding Visit Charges Inpatient E&M: 47813 Init Hosp L2
--- NOTE | 2023-11-28 09:00 | NURSING ---
DR CHRISTOPHER FOR DR VAZQUEZ
--- NOTE | 2023-11-28 09:03 | NURSING ---
PCU MOSTELLER HYPOXIA, CELLULITIS, BREAST CA WITH CHEMO
[2023-11-28] MEDS: Doxycycline 100 MG CAPSULE PO (09:43)
[2023-11-28] MEDS: Amox/Clavulanate 875 MG Tablet PO (09:43)
[2023-11-28 11:36] LABS: Vitamin B12 1138 pg/mL (211-911)
[2023-11-28] MEDS: Enoxaparin 40 MG/0.4 ML Syringe SC (11:45)
[2023-11-28 12:14] LABS: Ferritin 311 ng/mL (8-252); Iron 22 ug/dL (50-170); Iron Binding Capacity,Total 331 ug/dL (250-450); PERCENT IRON SATURATION 6.6 % (15.0-55.0)
[2023-11-28] MEDS: Ensure Plus High Protein 120 ML LIQUID PO (16:45)
[2023-11-28] MEDS: Acetaminophen 325 MG Tablet 650 MG PO (21:12)
[2023-11-28] MEDS: 0.9% Saline Lock 10 ML Syringe IV (22:32)
[2023-11-28] MEDS: Vancomycin IV 1,000 MG/200 ML BAG 200 MG IV (22:34)
--- NOTE | 2023-11-28 23:20 | PCM.RX.CS ---
Consult Antibiotic Management Pharmacy has been consulted to manage selected antibiotic: Vancomycin Type of Intervention Type of Consult: New start Labs Labs: Sodium 136 mmol/L (136-145) 11/28/23 05:25 Potassium 3.4 mmol/L (3.5-5.1) L 11/28/23 05:25 Chloride 106 mmol/L (98-107) 11/28/23 05:25 Carbon Dioxide 27.0 mmol/L (21.0-32.0) 11/28/23 05:25 Anion Gap 3 (5-15) L 11/28/23 05:25 BUN 13 mg/dL (7-18) 11/28/23 05:25 Creatinine 1.11 mg/dL (0.55-1.02) H 11/28/23 05:25 Est GFR (MDRD) Af Amer 62 mL/min (>60) 11/28/23 05:25 Est GFR (MDRD) Non-Af 52 mL/min (>60) L 11/28/23 05:25 BUN/Creatinine Ratio 11.7 RATIO (10-20) 11/28/23 05:25 Glucose 139 mg/dL (74-106) H 11/28/23 05:25 Microbiology Microbiology: Microbiology 11/28/23 05:25 Blood Culture (Wb) - Port Blood Culture - Preliminary 11/28/23 05:40 Blood Culture (Wb) - Arm Right Blood Culture - Preliminary 11/28/23 05:18 Mucosa - Nose SARS-CoV-2, Influenza & RSV (PCR) - Final Dosing Weight Weight used for dosin.8 kg Estimated Creatinine Clearance Estimated Creatinine Clearance: 42 Goal Trough Goal Trough: 15-20 mcg/mL Pharmacy Plan for Drug Dosing Pharmacy Plan for Drug Dosing: Pharmacy Service will continue to monitor and adjust dosing as required. Follow-Up Labs Follow-Up Labs: Trough: Vancomycin Date/Time Labs Ordered Labs to be done on [date and time ordered]: 11/30/23 @1000
[2023-11-29 03:20] VITALS: BP 122/75; PULSE 75; RESP 18; TEMP 36.7; O2SAT 98
[2023-11-29 05:26] LABS: Hematocrit 31.1 % (37-47); Hemoglobin 9.5 g/dL (12.0-15.0); Mean Corp Hgb Conc 30.5 g/dL (32-36); Mean Corpuscular Hgb 26.9 pg (27.0-32.0); Mean Corpuscular Volume 88.1 fL (81-99); Mean Platelet Vol. 9.7 fl (6.2-12.0); Platelet Count 239 K/mm3 (150-450); RBC Distribution Width CV 19.9 % (11.6-14.6); RBC Distribution Width SD 63.4 fl (35.1-43.9); Red Blood Count 3.53 M/mm3 (4.2-5.4); White Blood Count 23.8 K/mm3 (4.4-11.0)
[2023-11-29 05:50] LABS: ALB/GLOB Ratio 0.7 RATIO (0.9-2.4); AST(SGOT) 22 U/L (15-37); Alanine Aminotransfer ALT/SGPT 23 U/L (13-56); Albumin, Serum 2.4 g/dL (3.2-5.0); Alkaline Phosphatase 271 U/L (45-117); Anion Gap 2 (5-15); BUN 12 mg/dL (7-18); BUN/Creat Ratio 11.5 RATIO (10-20); Calcium,Total 8.5 mg/dL (8.5-10.1); Chloride 109 mmol/L (98-107); Creatinine, Serum 1.04 mg/dL (0.55-1.02); EST Glomerular Filtration Rate 56 mL/min (>60); Est Glom Filt Rate - Afr Amer 67 mL/min (>60); Estimated Creatinine Clearance 45.29 ml/min; Globulin 3.4 g/dL (2.2-4.2); Glucose 104 mg/dL (74-106); Potassium 3.8 mmol/L (3.5-5.1); Protein, Total 5.8 g/dL (6.4-8.2); Sodium Level 139 mmol/L (136-145)
[2023-11-29 07:44] VITALS: O2SAT 96
[2023-11-29 09:11] VITALS: BP 103/55; PULSE 88; RESP 18; TEMP 36.9; O2SAT 98
[2023-11-29] MEDS: Enoxaparin 40 MG/0.4 ML Syringe SC (09:13)
[2023-11-29] MEDS: Pantoprazole Sodium 20 MG Tablet PO (09:13)
[2023-11-29] MEDS: Ensure Plus High Protein 120 ML LIQUID PO ×2 (09:14→10:53)
[2023-11-29 09:17] VITALS: O2SAT 94
--- NOTE | 2023-11-29 09:38 | CASEMGMT ---
Met with patient to complete HAWK form. HAWK form explained to?patient who voiced understanding and signed form. Original form placed in pt?s chart and copy provided to?patient. Becca Givens, Discharge Planning Asst
[2023-11-29] MEDS: Vancomycin IV 500 MG/100 ML BAG 100 MG IV ×2 (10:53→21:28)
[2023-11-29] MEDS: 0.9% Saline Lock 10 ML Syringe IV (10:53)
[2023-11-29 12:53] LABS: Pathologist Review Reviewed
--- NOTE | 2023-11-29 13:11 | ECHODONC_ITS ---
Reason For Study: BACTEREMIA Procedure This was a 2D Doppler, Color Flow transthoracic echocardiogram. Myocardial strain analysis was performed in this exam to aid in the assessment of cardiac function. Exam performed portable in patient room. Left Ventricle Normal size and thickness. The left ventricular ejection fraction is 65 %. Normal diastology for age. Right Ventricle Normal right ventricle. Atria The left and right atria are normal. Mitral Valve Trivial mitral valve insufficiency. Tricuspid Valve Mild tricuspid valve insufficiency. Right ventricular systolic pressure estimated to be 52 mmHg. Aortic Valve Trisinus/trileaflet aortic valve. Pulmonic Valve The pulmonic valve is not well visualized. Great Vessels Normal sized aortic root. Pericardium/Pleural No pericardial effusion. MMode/2D Measurements & Calculations LVIDd: 3.8 cm IVSd: 0.69 cm Ao root diam: 3.1 cm LVIDs: 2.6 cm LVPWd: 0.68 cm RVDd: 3.6 cm FS: 31.5 % LAV(MOD-bp): 42.7 ml LVAd ap4: 26.0 cm2 SV(MOD-sp4): 47.6 ml LAV(MOD-bp) Indexed: 25.9 ml/m2 LVLd ap4: 7.7 cm LAV(MOD-sp2): 40.4 ml EDV(MOD-sp4): 70.8 ml LAV(MOD-sp4): 44.2 ml EDV(sp4-el): 74.4 ml LVAs ap4: 13.0 cm2 LVLs ap4: 5.8 cm ESV(MOD-sp4): 23.3 ml ESV(sp4-el): 24.6 ml EF(MOD-sp4): 67.2 % EF(sp4-el): 66.9 % SV(sp4-el): 49.7 ml LA A4 area: 16.8 cm2 LA dimension(2D): 2.6 cm RA A4 area: 14.7 cm2 TAPSE: 2.7 cm Time Measurements MV dec time: 0.21 sec Doppler Measurements & Calculations MV E max chandler: 99.8 cm/sec Lat Peak E' Chandler: 11.8 cm/sec Med Peak E' Chandler: 12.2 cm/sec MV A max chandler: 101.3 cm/sec E/E' lat: 8.5 E/E' med: 8.2 MV E/A: 0.98 Ao V2 max: 164.2 cm/sec LV V1 max: 146.5 cm/sec PA V2 max: 107.7 cm/sec Ao max P.8 mmHg LV V1 max P.6 mmHg TR max chandler: 305.5 cm/sec TR max P.3 mmHg ECHO/ONC Echo Complete Interpretation Summary The left ventricular ejection fraction is 65 %. Mild tricuspid valve insufficiency. Right ventricular systolic pressure estimated to be 52 mmHg. No obvious vegetations noted on this surface echocardiogram. Consider ROSALEE for f urther evaluation if clinical suspicion for endocarditis. Ordering Physician: Vini Echols Referring Physician: DR. LEIGH Performed By: Chani Shepherd, KEORN
[2023-11-29 15:15] VITALS: BP 114/63; PULSE 92; RESP 18; TEMP 36.9; O2SAT 94
--- NOTE | 2023-11-29 15:19 | PN.HOSP_ITS ---
Reason for Visit Reason for Visit: Diagnoses Immunodeficiency due to drugs (11/29/23) Acute mastoiditis without complications, right ear (11/29/23) Cellulitis of neck (11/29/23) Cellulitis of head [any part, except face] (11/29/23) Urinary tract infection, site not specified (11/29/23) Hypoxemia (11/29/23) Other detention (current) drug therapy (11/29/23) Subjective Subjective No acute events overnight. Patient seen at bedside this morning, sister present. Patient sitting up comfortably in bed, conversing normally, no acute distress. States that she feels moderately improved today compared to yesterday. States that her right-sided neck pain, erythema and tenderness has moderately improved since yesterday. Denies any fevers or chills overnight. Has been off supplemental oxygen this morning, denies any shortness of breath with exertion. Denies any other acute pain or discomfort today. No other acute concerns. Objective Data Objective Data Vital Signs: Vital Signs Temp Pulse Resp BP Pulse Ox O2 Del Method O2 Flow Rate 98.4 F 92 18 114/63 94 Room Air 2 11/29/23 15:15 11/29/23 15:15 11/29/23 15:15 11/29/23 15:15 11/29/23 15:15 11/29/23 15:15 11/29/23 09:11 Oxygen Flow Rate (L/min) 2 Oxygen Delivery Method Room Air Weight: 58.8 kg Body Mass Index (BMI) 21.5 Intake & Output: Intake and Output for Last 24 Hours 11/27/23 11/28/23 11/29/23 23:59 23:59 23:59 Intake Total 1922.5 / 1922.5 650 / 650 Balance 1922.5 / 1922.5 650 / 650 Lab / Micro Data 11/29/23 04:53 11/29/23 04:53 Labs: Laboratory Results - last 24 hr 11/28/23 05:25: Diff Path Review Reviewed 11/29/23 04:53: WBC 23.8 H, RBC 3.53 L, Hgb 9.5 L, Hct 31.1 L, MCV 88.1, MCH 26.9 L, MCHC 30.5 L, RDW Std Deviation 63.4 H, RDW Coeff of Jose 19.9 H, Plt Count 239, MPV 9.7, Sodium 139, Potassium 3.8, Chloride 109 H, Carbon Dioxide 28.0, Anion Gap 2 L, BUN 12, Creatinine 1.04 H, Estim Creat Clear Calc 45.29, Est GFR (MDRD) Af Amer 67, Est GFR (MDRD) Non-Af 56 L, BUN/Creatinine Ratio 11.5, Glucose 104, Calcium 8.5, Total Bilirubin 0.30, AST 22, ALT 23, Alkaline Phosphatase 271 H, Total Protein 5.8 L, Albumin 2.4 L, Globulin 3.4, Albumin/Globulin Ratio 0.7 L Micro: Microbiology 11/28/23 05:25 Blood Culture (Wb) - Port Blood Culture - Preliminary Beta streptococcus 11/28/23 05:40 Blood Culture (Wb) - Arm Right Blood Culture - Preliminary Beta streptococcus 11/28/23 05:40 Urine, Clean Catch Urine Culture - Final Mixed Gram Pos & Gram Neg Org 11/28/23 05:18 Mucosa - Nose SARS-CoV-2, Influenza & RSV (PCR) - Final Rhythm Strip Rhythm Strip: Sinus Tach Rate: 106 Ectopy: None Physical Exam Const alert, oriented x3, no apparent distress and average body habitus Constitutional Narrative: Pleasant elderly female, thin but not cachectic appearing, sitting up comfortably in bed, conversing normally, no acute distress. General Appearance: cooperative and comfortable HEENT normocephalic, head/scalp atraumatic, hearing grossly normal bilaterally, nasal mucous membranes and turbinates normal and moist oral mucous membranes HEENT Narrative: Right-sided neck erythema and tenderness significantly improved from admission. Continues to have mild lymphadenopathy. Eyes PERRL, EOMs intact bilaterally and conjunctivae normal Neck supple Neck Narrative: Right-sided neck lymphadenopathy noted, improving. Resp normal respiratory effort, no use of accessory muscles and clear to auscultation bilaterally Auscultation: Negative for crackles or wheezes Cardio regular rate, regular rhythm, no murmurs and peripheral pulses 2+ throughout GI normal to inspection, nondistended, normoactive bowel sounds, soft to palpation, non-tender and non-distended Back/Spine normal ROM Extremity normal to inspection, full ROM and no pedal edema Neuro moves all extremities and no focal motor deficits Speech: speech normal Psych mental status grossly normal Assessment & Plan Assessment/Plan (1) Hypoxemia: (2) Acute mastoiditis of right side without complications: (3) Cellulitis of multiple sites of head and neck: (4) Immunocompromised state due to drug therapy: PLAN: Plan Patient is a 68-year-old female who presented to [facility] ED on 11/28/2023 with worsening right-sided neck pain and pain behind the ear as well as subjective fevers. 1. Mild hypoxia on exertion, improved Oxygen saturations dropped to slightly below 88% on room air with exertion in ED. CTA chest showed no PE, well-expanded lungs, mild increased markings at lung bases suggestive of underlying atelectasis versus scarring. Mild URI recently, no symptoms of pneumonia including no cough with sputum production, no chest discomfort. ? Patient weaned off supplemental oxygen on 11/29. Denies any dyspnea on exertion. Suspect mild hypoxia may have been secondary to mild basilar atelectasis, improved with incentive spirometry. 2. Acute right-sided neck cellulitis with mastoiditis; Streptococcus bacteremia CT on admit showed soft tissue swelling and increased mild subcutaneous soft tissue stranding posterior to right ear along with small opacified mastoid air cells, but no evidence of visible bone obstruction noted. Blood cultures +11/25 positive for Group B Streptoccus bacteremia on 11/29. ? Escalated to IV vancomycin on 11/29. WBC count significantly improved as noted below, patient afebrile since admission, clinically improving. No clinical evidence of endocarditis but will order TTE for further evaluation. 3. Severe leukocytosis, improving ? WBC count 55K on admit. Discussed with oncology, presumed secondary to recent Neulasta administration on 11/24. Improved to 23K on 11/29. Monitor daily CBC. 4. Mild creatinine elevation, stable ? Creatinine 1.11 on admit, baseline creatinine appears to be around 0.7-1.0. Suspect mild dehydration secondary to acute infection as noted above. S/p IV fluids in the ED, encouraged p.o. intake. Creatinine 1.04 on 11/29. Continue to monitor daily BMP and urine output. 5. Elevated alkaline phosphatase ? Alk phos 272 on admit, LFTs otherwise normal. Suspect this may be secondary to bone breakdown from treatment for cancer. Stable on 11/29, no need to monitor further. 6. Chronic anemia ? Hemoglobin 10.0 on admit, baseline hemoglobin 10-11. Iron studies 2/5 show low iron and iron saturation with mildly elevated ferritin, most consistent with anemia of chronic disease. B12 and folate normal. Monitor daily CBC. 7. Metastatic breast cancer ? Follows with Dr. Mary, currently on Enhertu hormone therapy every 3 weeks. S ee H&P for further details. Continue outpatient follow-up on discharge. 8. Mild debility ? Lives at home with sister, good functional status. Mild debility in setting of acute illness. PT/OT/case management following, planning for home on discharge with no therapy needs. 9. Lung nodule ? CT chest on admit showed 3.7 mm noncalcified nodule in anterior aspect of right lung apex. 6-month follow-up examination recommended. Chronic medical conditions: ? GERD: Continue home PPI. ? Hypertension: Holding home amlodipine, restart when able DVT prophylaxis: Lovenox CODE STATUS: Full code, verified Expected disposition: Home, 1 to 2 days Total clinical time spent by myself addressing the patient's medical issues, reviewing all the data, and collaborating with patient's care team: 35 minutes. Charges/Coding Visit Charges Inpatient E&M: 56223 Subs Hosp L2
--- NOTE | 2023-11-29 15:54 | CASEMGMT ---
LUIS PAUL Assessment Face to Face with patient for initial transition planning/care coordination assessment. LUIS PAUL introduced self and role at [facility], pt voices understanding. Pt is A&Ox4 and is resting comfortably in bed and is calm. Care providers, pharmacy, and demographics verified. Admitting dx: Hypoxia PCP: Augustus Specialists: Usman ([facility]) Preferred Pharmacy: [facility] Insurance: [facility], AARP Prescription Benefit: Yes LNOK: Sister (POA) - Courtney Sheffield Living Arrangements: Pt lives with her sister in a single story condo with 1 step to enter with no issues. ADLs/IADLs: Ind. Pt sister can help if needed. Transportation: Pt and pt sister drive DME: Denies history or needs. Verbal list of local in network DME companies provided. Pt states if she needs home O2 she would prefer [facility]. Will follow. HHC/SNF: Denies history or needs Pt?s goal: DC home Plan: Pt plan and goal is to DC home via her sister tomorrow with no additional needs at this time. Pt denies SNF, HHC, or OP therapy now. Ning Pearson RN, CM
--- NOTE | 2023-11-29 16:19 | CHAPLAIN ---
Type of Pastoral Visit _x__ Initial Visit ___ Follow-up Visit ___ On-call Visit ___ General Patient Visit ___ Spiritual Assessment ___ Family Conference ___ Bereavement ___ Rapid Response ___ Code Blue ___ Other (describe below) Pastoral Care Referral From _x__ Patient ___ Family ___ Nurse ___ Physician ___ Catering Truck Driver ___ Sap Functional Analyst ___ Other (describe below) Sacrament/Intervention __x_ Active listening ___ Anointing ___ Restorationist ___ Bereavement ___ Communion _x__ Sherry exploration ___ _x__ Life review _x__ Prayer ___ Reconciliation ___ Sacrament of Sick ___ Supportive presence ___ Wedding ___ Other (describe below) Pastoral Comments patient is very welcoming of spiritual care support; pt is upbeat in her talk and presents with abundance of sherry and hope even though I'm at stage four cancer and we are doing chemo just to keep it at bay ; pt has family support, jainism support, and sherry; pt welcomes prayer and expresses thanks for the time given
[2023-11-29 21:15] VITALS: BP 101/57; PULSE 86; RESP 18; TEMP 36.8; O2SAT 96
[2023-11-29] MEDS: Acetaminophen 325 MG Tablet 650 MG PO (21:18)
[2023-11-29] MEDS: 0.9 % NaCl (Sterile) Posiflush 10 mL IV (21:23)
[2023-11-30 03:15] VITALS: BP 111/55; PULSE 76; RESP 18; TEMP 36.5; O2SAT 98
[2023-11-30 07:47] VITALS: O2SAT 96
[2023-11-30 09:33] VITALS: BP 106/56; PULSE 84; RESP 17; TEMP 36.6; O2SAT 98
[2023-11-30] MEDS: Enoxaparin 40 MG/0.4 ML Syringe SC (09:37)
[2023-11-30] MEDS: Pantoprazole Sodium 20 MG Tablet PO (09:37)
[2023-11-30 10:59] LABS: Vancomycin, Trough Level 11.1 ug/mL (5.0-15.0)
[2023-11-30] MEDS: 0.9% Saline Lock 10 ML Syringe IV ×3 (11:21→13:17)
[2023-11-30] MEDS: Vancomycin HCl 750 MG in 0.9% Normal Saline (250mL Bag) 250 ML 250 MG IV (11:21)
--- NOTE | 2023-11-30 11:36 | PCM.RX.CS ---
Consult Antibiotic Management Pharmacy has been consulted to manage selected antibiotic: Vancomycin Type of Intervention Type of Consult: Follow-up Prior Doses of Antibiotics Prior Doses of Antibiotics Received/Current Regimen: current dose is vanc 500mg IV q12h Labs Labs: Sodium 139 mmol/L (136-145) 11/29/23 04:53 Potassium 3.8 mmol/L (3.5-5.1) 11/29/23 04:53 Chloride 109 mmol/L (98-107) H 11/29/23 04:53 Carbon Dioxide 28.0 mmol/L (21.0-32.0) 11/29/23 04:53 Anion Gap 2 (5-15) L 11/29/23 04:53 BUN 12 mg/dL (7-18) 11/29/23 04:53 Creatinine 1.04 mg/dL (0.55-1.02) H 11/29/23 04:53 Est GFR (MDRD) Af Amer 67 mL/min (>60) 11/29/23 04:53 Est GFR (MDRD) Non-Af 56 mL/min (>60) L 11/29/23 04:53 BUN/Creatinine Ratio 11.5 RATIO (10-20) 11/29/23 04:53 Glucose 104 mg/dL (74-106) 11/29/23 04:53 Vancomycin Trough 11.1 ug/mL (5.0-15.0) 11/30/23 10:00 Microbiology Microbiology: Microbiology 11/28/23 05:40 Blood Culture (Wb) - Arm Right Blood Culture - Final Streptococcus group A 11/28/23 05:25 Blood Culture (Wb) - Port Blood Culture - Final Streptococcus pyogenes 11/28/23 05:40 Urine, Clean Catch Urine Culture - Final Mixed Gram Pos & Gram Neg Org 11/28/23 05:18 Mucosa - Nose SARS-CoV-2, Influenza & RSV (PCR) - Final Dosing Weight Weight used for dosin.8 kg Estimated Creatinine Clearance Estimated Creatinine Clearance: 45 ml/min Goal Trough Goal Trough: 15-20 mcg/mL Pharmacy Plan for Drug Dosing Pharmacy Plan for Drug Dosing: The vanc trough drawn at 10:00 today (approx 12.5 hrs after the previous dose) was 11.1. This is below goal so will increase dose to 750mg IV q12h. Repeat a trough before the 4th dose. Pharmacy Service will continue to monitor and adjust dosing as required. Follow-Up Labs Follow-Up Labs: Trough: Vancomycin Date/Time Labs Ordered Labs to be done on [date and time ordered]: 12/01/23 23:00
--- NOTE | 2023-11-30 12:53 | DCINST_ITS ---
Discharge Instructions Diet Discharge Diet: No restrictions Activity Discharge Activity: No Restrictions Weight Bearing Status: Full weight bearing Follow Up Care Test Results: Test results from this visit will be discussed in further detail at your follow- up appointment, if applicable. Discharge Plan Admission Admit Date/Time: 11/29/23 15:07 Primary Reason for Your Visit: Fevers and chills, cellulitis Attending Provider: Vini Echols Primary Care Provider: KEESHA DEVLIN Consulting Providers: Germán Mary Instructions Additional Instructions / Restrictions: Complete antibiotic course as noted below. Continue other home medications as prescribed. Follow-up with Dr. Mary as previously scheduled. Discharge Orders/Prescriptions Prescriptions: New cefdinir 300 mg capsule 300 mg PO BID 8 Days Qty: 16 0RF Continued chemo IV .Q3week amlodipine 10 MG tablet 10 mg PO DAILY omeprazole 10 mg capsule,delayed release(DR/EC) 20 mg PO QODAY Referrals / Follow Up: KEESHA DEVLIN [Other] Germán Mary DO [Med Staff - Active Staff] - Disposition Disposition (needs filled in before D/C Order can be placed): Home, Self Care
--- NOTE | 2023-11-30 12:55 | PCM.DC.SUM ---
Providers Date of Admission: 11/28/23 Date of Discharge: 11/30/23 Primary Care Physician: KEESHA DEVLIN Reason For Visit: HYPOXIA Diagnosis Discharge Diagnosis (1) Hypoxemia: Status: Acute Code(s): R09.02 - Hypoxemia (2) Acute mastoiditis of right side without complications: Status: Acute Code(s): H70.001 - Acute mastoiditis without complications, right ear (3) Cellulitis of multiple sites of head and neck: Status: Acute Code(s): L03.811 - Cellulitis of head [any part, except face]; L03.221 - Cellulitis of neck (4) Immunocompromised state due to drug therapy: Status: Acute Code(s): D84.821 - Immunodeficiency due to drugs; Z79.899 - Other [facility]current[facility] drug therapy Medications at Discharge Home Medications amlodipine 10 mg tablet 10 mg PO DAILY 08/05/20 chemo IV .Q3week 12/28/22 omeprazole 10 mg capsule,delayed release 20 mg PO QODAY reflux 11/28/23 cefdinir 300 mg capsule 300 mg PO BID 8 days #16 caps 11/30/23 Hospital Course Operations None Procedures EKG, Transthoracic echo and - (CTA chest, CT orbit sella inner, chest x-ray) Summary of Care Provided Minutes Spent on Discharge: 35 Hospital Course: Patient is a 68-year-old female who presented to [facility] ED on 11/28/2023 with worsening right-sided neck pain and pain behind the ear as well as subjective fevers. Short hospital course as noted below. Discharged home in stable condition on 11/30. 1. Mild hypoxia on exertion, resolved Oxygen saturations dropped to slightly below 88% on room air with exertion in ED. CTA chest showed no PE, well-expanded lungs, mild increased markings at lung bases suggestive of underlying atelectasis versus scarring. Mild URI recently, no symptoms of pneumonia including no cough with sputum production, no chest discomfort. ? Patient weaned off supplemental oxygen on 11/29. Denied any dyspnea on exertion. Suspect mild hypoxia may have been secondary to mild basilar atelectasis, improved with incentive spirometry. 2. Acute right-sided neck cellulitis with mastoiditis; Streptococcus bacteremia CT on admit showed soft tissue swelling and increased mild subcutaneous soft tissue stranding posterior to right ear along with small opacified mastoid air cells, but no evidence of visible bone obstruction noted. Blood cultures +11/25 positive for Group B Streptoccus bacteremia on 11/29, pansensitive. TTE 11/29 with no evidence of endocarditis, patient with no clinical evidence of endocarditis as well. ? Treated with IV vancomycin while inpatient with great improvement in clinical symptoms. Discharged on p.o. cefdinir to complete 10-day course of antibiotics total. 3. Severe leukocytosis, improving ? WBC count 55K on admit. Discussed with oncology, presumed secondary to recent Neulasta administration on 11/24. Improved to 23K on 11/29. No need to monitor further. 4. Mild creatinine elevation, stable ? Creatinine 1.11 on admit, baseline creatinine appears to be around 0.7-1.0. Suspect mild dehydration secondary to acute infection as noted above. S/p IV fluids in the ED, encouraged p.o. intake. Creatinine 1.04 on 11/29. No need to monitor further. 5. Elevated alkaline phosphatase ? Alk phos 272 on admit, LFTs otherwise normal. Suspect this may be secondary to bone breakdown from treatment for cancer. Stable on 11/29, no need to monitor further. 6. Chronic anemia ? Hemoglobin 10.0 on admit, baseline hemoglobin 10-11. Iron studies 11/28 show low iron and iron saturation with mildly elevated ferritin, most consistent with anemia of chronic disease. B12 and folate normal. Stable. 7. Metastatic breast cancer ? Follows with Dr. Leigh, currently on Enhertu hormone therapy every 3 weeks. Continue outpatient follow-up on discharge. 8. Mild debility ? Lives at home with sister, good functional status. Mild debility in setting of acute illness. PT/OT/case management followed, okay for discharge home without any therapy needs. 9. Lung nodule ? CT chest on admit showed 3.7 mm noncalcified nodule in anterior aspect of right lung apex. 6-month follow-up examination recommended. Chronic medical conditions: ? GERD: Continue home PPI. ? Hypertension: Home amlodipine held during hospitalization, okay to restart on discharge. Total clinical time spent by myself addressing the patient's discharge needs: 35 minutes. Physical Exam Const alert, oriented x3, no apparent distress and average body habitus Constitutional Narrative: Pleasant elderly female, thin but not cachectic appearing, sitting up comfortably in bed, conversing normally, no acute distress. General Appearance: cooperative and comfortable HEENT normocephalic, head/scalp atraumatic, hearing grossly normal bilaterally, nasal mucous membranes and turbinates normal and moist oral mucous membranes HEENT Narrative: Right-sided neck erythema and tenderness significantly improved from admission. Eyes PERRL, EOMs intact bilaterally and conjunctivae normal Neck supple Neck Narrative: Right-sided neck lymphadenopathy noted, improving. Resp normal respiratory effort, no use of accessory muscles and clear to auscultation bilaterally Auscultation: Negative for crackles or wheezes Cardio regular rate, regular rhythm, no murmurs and peripheral pulses 2+ throughout GI normal to inspection, nondistended, normoactive bowel sounds, soft to palpation, non-tender and non-distended Back/Spine normal ROM Extremity normal to inspection, full ROM and no pedal edema Neuro moves all extremities and no focal motor deficits Speech: speech normal Psych mental status grossly normal Weight / BMI Weight Weight: 58.8 kg Body Mass Index (BMI) 21.5 ABG / Lab / Microbiology Data 11/29/23 04:53 11/29/23 04:53 Laboratory: Laboratory Results - last 24 hr 11/30/23 10:00: Vancomycin Trough 11.1 Microbiology: Microbiology 11/28/23 05:40 Blood Culture (Wb) - Arm Right Blood Culture - Final Streptococcus group A 11/28/23 05:25 Blood Culture (Wb) - Port Blood Culture - Final Streptococcus pyogenes 11/28/23 05:40 Urine, Clean Catch Urine Culture - Final Mixed Gram Pos & Gram Neg Org 11/28/23 05:18 Mucosa - Nose SARS-CoV-2, Influenza & RSV (PCR) - Final Radiography Diagnostic Testing: Radiology Impression Echocardiogram 11/29/23 13:11 Interpretation Summary The left ventricular ejection fraction is 65 %. Mild tricuspid valve insufficiency. Right ventricular systolic pressure estimated to be 52 mmHg. No obvious vegetations noted on this surface echocardiogram. Consider ROSALEE for further evaluation if clinical suspicion for endocarditis. Ordering Physician: Vini Echols Referring Physician: DR. LEIGH Performed By: Chani Shepherd RDCS D/C Instructions Discharge Diet: No restrictions Weight Bearing Status: Full weight bearing Meaningful Use Info Meaningful Use Diagnoses (Choose all that apply): None applicable Discharge Plan Admission Admit Date/Time: 11/29/23 15:07 Primary Reason for Your Visit: Fevers and chills, cellulitis Attending Provider: Vini Echols Primary Care Provider: KEESHA DEVLIN Consulting Providers: Germán Leigh Instructions Additional Instructions / Restrictions: Complete antibiotic course as noted below. Continue other home medications as prescribed. Follow-up with Dr. Leigh as previously scheduled. Discharge Orders/Prescriptions Prescriptions: New cefdinir 300 mg capsule 300 mg PO BID 8 Days Qty: 16 0RF Continued chemo IV .Q3week amlodipine 10 MG tablet 10 mg PO DAILY omeprazole 10 mg capsule,delayed release(DR/EC) 20 mg PO QODAY Referrals / Follow Up: KEESHA DEVLIN [Other] Germán Leigh DO [Med Staff - Active Staff] - Disposition Disposition (needs filled in before D/C Order can be placed): Home, Self Care Charges/Coding Visit Charges Inpatient E&M: 85707 Disch Hosp >30min
== END 2023-11-30 13:27 | disposition home or self-care (01) | DRG 603 ==
LOC: ED 09:04 → PCU 09:30
PROVIDERS: Family Medicine; Admitting Provider Hospitalist; Emergency Provider Emergency Medicine; Visit Provider Hospitalist
DX: L03.211 Cellulitis of face (principal); R78.81 Bacteremia; D84.821 Immunodeficiency due to drugs; H70.001 Acute mastoiditis without complications, right ear; L03.221 Cellulitis of neck; N39.0 Urinary tract infection, site not specified; L03.811 Cellulitis of head [any part, except face]; D63.8 Anemia in other chronic diseases classified elsewhere; C50.919 Malignant neoplasm of unspecified site of unspecified female breast; I10 Essential (primary) hypertension; E86.0 Dehydration; K21.9 Gastro-esophageal reflux disease without esophagitis; R09.02 Hypoxemia; B95.5 Unspecified streptococcus as the cause of diseases classified elsewhere; R53.81 Other malaise; R91.1 Solitary pulmonary nodule; Z86.16 Personal history of COVID-19; Z79.899 Other long term (current) drug therapy
CPT/HCPCS: 36415; 36591; 70480; 71046; 71275; 80053; 80202; 81001; 82607; 82728; 82746; 83540; 83550; 83605; 85025; 85027; 85610; 85730; 87040; 87077; 87086; 87088; 87186; 87631; 93005; 93306; 93356; 94668; 97802; 99252; 99285; J7030; J7050; Q9967; A4216; G0463

== ENCOUNTER → 2023-12-26 | Outpatient (CLI) | payer MEDICARE, OTHER, SELFPAY ==
[2023-12-26 11:22] LABS: Mucous, Urine 0 SEEN /hpf (<or=2+); Squamous Epithelial Cells - UA 0 SEEN /hpf (5-10)
[2023-12-26 11:49] LABS: Color, Urine Yellow (Yellow); Glucose, Dipstick Normal (Normal); Ketone-Dipstick Negative (Negative); Leukocyte Esterase-Dipstick 500 /ul (Negative); Nitrite-Dipstick Negative (Negative); Occult Blood-Urine 50 /ul (Negative); Protein-Dipstick 30 mg/dl (Negative); Specific Gravity, Urine 1.005 (1.002-1.030); Urine Bilirubin Dipstick Negative (Negative); Urine Clarity Sl. Cloudy (Clear); Urine Urobilinogen Normal (Normal)
[2023-12-26 11:59] LABS: Bacteria 1+ /hpf (None Seen); Red Blood Cells-Urine 0-5 SEEN /hpf (0-5); White Blood Cells 25-50 SEEN /hpf (0-5)
== END | disposition home or self-care (01) ==
LOC: LABSPEC 10:39
PROVIDERS: Referring Provider Nurse Practitioner Family; Visit Provider Nurse Practitioner Family
DX: R30.0 Dysuria (principal)
CPT/HCPCS: 81001; 87077; 87086; 87088; 87186

== ENCOUNTER → 2024-05-07 | Outpatient (CLI) | payer MEDICARE, OTHER, SELFPAY ==
[2024-05-07 11:00] LABS: Mucous, Urine 0 SEEN /hpf (<or=2+); Squamous Epithelial Cells - UA 0 SEEN /hpf (5-10)
[2024-05-07 11:07] LABS: Color, Urine Yellow (Yellow); Glucose, Dipstick Normal (Normal); Ketone-Dipstick Negative (Negative); Leukocyte Esterase-Dipstick 500 /ul (Negative); Nitrite-Dipstick Negative (Negative); Occult Blood-Urine 250 /ul (Negative); Protein-Dipstick 30 mg/dl (Negative); Urine Bilirubin Dipstick Negative (Negative); Urine Clarity Cloudy (Clear); Urine Urobilinogen Normal (Normal)
[2024-05-07 11:14] LABS: White Blood Cells 50-100 SEEN /hpf (0-5)
[2024-05-07 11:16] LABS: Bacteria 2+ /hpf (None Seen); Red Blood Cells-Urine 10-25 SEEN /hpf (0-5)
== END | disposition home or self-care (01) ==
LOC: LABSPEC 10:51
PROVIDERS: Physician Assistant; Referring Provider Nurse Practitioner Family; Visit Provider Nurse Practitioner Family
DX: R35.0 Frequency of micturition (principal)
CPT/HCPCS: 81001; 87086

== ENCOUNTER → 2024-05-16 | Outpatient (CLI) | payer MEDICARE, OTHER, SELFPAY ==
[2024-05-16 10:19] LABS: Mucous, Urine 0 SEEN /hpf (<or=2+); Red Blood Cells-Urine 0 SEEN /hpf (0-5)
[2024-05-16 10:23] LABS: Color, Urine Yellow (Yellow); Glucose, Dipstick Normal (Normal); Ketone-Dipstick Negative (Negative); Leukocyte Esterase-Dipstick 100 /ul (Negative); Nitrite-Dipstick Negative (Negative); Occult Blood-Urine Negative /ul (Negative); Protein-Dipstick Negative (Negative); Specific Gravity, Urine 1.015 (1.002-1.030); Urine Bilirubin Dipstick Negative (Negative); Urine Clarity Clear (Clear); Urine Urobilinogen Normal (Normal)
[2024-05-16 10:37] LABS: Bacteria RARE /hpf (None Seen); Squamous Epithelial Cells - UA 0-5 SEEN /hpf (5-10); White Blood Cells 5-10 SEEN /hpf (0-5)
== END | disposition home or self-care (01) ==
LOC: LABSPEC 10:09
PROVIDERS: Referring Provider Physician Assistant; Visit Provider Physician Assistant
DX: R30.0 Dysuria (principal)
CPT/HCPCS: 81001; 87086

== ENCOUNTER → 2025-01-14 | Outpatient (CLI) | payer MEDICARE, OTHER, SELFPAY | END | disposition home or self-care (01) | LOC: LABSPEC 08:50 | PROVIDERS: Visit Provider Nurse Practitioner Family | DX: R30.0 Dysuria (principal) | CPT/HCPCS: 87086; 87088; 87186 ==

== ENCOUNTER → 2025-04-01 | Outpatient (CLI) | payer MEDICARE, OTHER, SELFPAY | END | disposition home or self-care (01) | LOC: LABSPEC 11:08 | PROVIDERS: Referring Provider Nurse Practitioner Family; Visit Provider Nurse Practitioner Family | DX: R30.0 Dysuria (principal) | CPT/HCPCS: 87086; 87088 ==

== ENCOUNTER → 2025-07-01 | Outpatient (CLI) | payer MEDICARE, OTHER, SELFPAY | END | disposition home or self-care (01) | LOC: LABSPEC 09:48 | PROVIDERS: Visit Provider Physician Assistant | DX: R35.0 Frequency of micturition (principal) | CPT/HCPCS: 87077; 87086; 87088 ==

== ENCOUNTER → 2025-08-12 | Outpatient (CLI) | payer MEDICARE, OTHER, SELFPAY | END | disposition home or self-care (01) | LOC: LABSPEC 12:31 | PROVIDERS: Visit Provider Physician Assistant | DX: R30.0 Dysuria (principal) | CPT/HCPCS: 87086; 87088 ==

== ENCOUNTER → 2025-09-26 | Outpatient (CLI) | payer MEDICARE, OTHER, SELFPAY | END | disposition home or self-care (01) | LOC: LABSPEC 12:33 | PROVIDERS: Visit Provider Physician Assistant Surgical | DX: R30.0 Dysuria (principal) | CPT/HCPCS: 87086; 87088 ==